=== PATIENT | female | born 1980 | race African-American/Black ===

== ENCOUNTER 2016-07-06 12:39 | Emergency (ER) | payer MEDICAID, OTHER ==
--- NOTE | 2016-07-06 14:12 | ER Document Report ---
HPI - HPI Patient complains to provider of: vaginal discharge Pain Level: Denies - REPRODUCTIVE Reproductive: DENIES: : - DERM Skin Color: Normal Past Medical History - Social History Smoking Status: Never Smoker Chew tobacco use (# tins/day): No Frequency of alcohol use: None Drug Abuse: None Family History: Reviewed & Not Pertinent, Other - Pt. is adopted and is unsure of family history Patient has suicidal ideation: No Patient has homicidal ideation: No - Past Medical History Cardiac Medical History: Reports: Hx Hypertension Pulmonary Medical History: Reports: Hx Pneumonia Neurological Medical History: Reports: Hx Migraine, Hx Seizures Renal/ Medical History: Denies: Hx Peritoneal Dialysis Psychiatric Medical History: Reports: Hx Bipolar Disorder, Hx Schizophrenia Past Surgical History: Reports: Hx Appendectomy, Hx Breast Surgery - bilateral lumpectomy, Hx Section - x3, Hx Tubal Ligation - Immunizations Immunizations up to date: Yes Hx Diphtheria, Pertussis, Tetanus Vaccination: Yes - 2009 Hx Pneumococcal Vaccination: 06/23/10 Vertical Provider Document - INFECTION CONTROL TRAVEL OUTSIDE OF THE [place] IN LAST 30 DAYS: No - RESPIRATORY O2 Sat by Pulse Oximetry: 97 Course - Vital Signs Vital signs: Temp Pulse Resp BP Pulse Ox 98.4 F 86 18 118/77 97 07/06/16 12:47 07/06/16 12:47 07/06/16 12:47 07/06/16 12:47 07/06/16 12:47 Discharge - Discharge Clinical Impression: Bacterial vaginosis Condition: Good Disposition: HOME, SELF-CARE Additional Instructions: Vaginosis, Bacterial Your exam shows you have bacterial vaginosis. This condition is due to an overgrowth of bacteria in the vagina. Symptoms may include vaginal itching or pain, a smelly discharge, and sometimes burning with urination. Normally this is not transmitted by sexual contact. Vaginosis can be treated with oral or topical antibiotics. Metronidazole ( Flagyl) pills are usually effective. Topical vaginal creams include Cleocin and Metro-Gel. You should avoid sexual contact until your symptoms are all better. Call the doctor if you develop pelvic pain, fever, or problems with urination, or if you don't improve as expected. Follow-up with Dr. Ellis as needed. Prescriptions: Metronidazole [Flagyl 500 mg Tablet] 500 mg PO BID 7 Days Forms: Return to Work
[2016-07-06 14:32] LABS: APPEARANCE,URINE CLEAR; BILIRUBIN,URINE NEGATIVE (NEGATIVE); GLUCOSE, URINE NEGATIVE (NEGATIVE); KETONES,URINE NEGATIVE (NEGATIVE); LEUKOCYTE ESTERASE,URINE SMALL (NEGATIVE); NITRITE,URINE NEGATIVE (NEGATIVE); PROTEIN,URINE NEGATIVE (NEGATIVE); URINE SPECIFIC GRAVITY 1.009; UROBILINOGEN,URINE NEGATIVE mg/dL (<2.0)
[2016-07-06 15:55] LABS: CHLAM PCR NOT DETECTED (NOT DETECT)
[2016-07-06] MEDS ORDERED: METRONIDAZOLE 500 MG TABLET PO ONE (16:04)
[2016-07-06 16:31] VITALS: BP 121/82
== END 2016-07-06 16:31 | disposition home or self-care (01) ==
LOC: ER 12:39
DX: N76.0 Acute vaginitis (principal); B96.89 Other specified bacterial agents as the cause of diseases classified elsewhere; Z98.51 Tubal ligation status
CPT/HCPCS: 99284; 87210; 81001; 87491; 87591; 76830; 93976; J3490

== ENCOUNTER 2016-07-31 20:02 | Emergency (ER) | payer MEDICAID ==
[2016-07-31 21:17] VITALS: BP 126/87
--- NOTE | 2016-07-31 21:22 | ER Document Report ---
ED Medical Screen (RME) - General Stated Complaint: POSSIBLE EYE INJURY Notes: pt c/o pain to right eye. pt was relaxing her hair, got the product in her eye. immediate burn. according to poison control, chemical is alkalizing and needs to continue to flush eye. c/o blurred vision. pt has flushed eye for atleast 40 minutes, but continues to burn. pt is noncontact wearer eye flushed at eye wash station in [place] for atleast 20 minutes. feeling slightly better presently. TRAVEL OUTSIDE OF THE [place] IN LAST 30 DAYS: No - Related Data Allergies/Adverse Reactions: No Known Allergies Allergy (Verified 07/31/16 21:17) Past Medical History - Past Medical History Cardiac Medical History: Reports: Hx Hypertension Pulmonary Medical History: Reports: Hx Pneumonia Neurological Medical History: Reports: Hx Migraine, Hx Seizures Renal/ Medical History: Denies: Hx Peritoneal Dialysis Psychiatric Medical History: Reports: Hx Bipolar Disorder, Hx Schizophrenia Past Surgical History: Reports: Hx Appendectomy, Hx Breast Surgery - bilateral lumpectomy, Hx Section - x3, Hx Tubal Ligation - Immunizations Immunizations up to date: Yes Hx Diphtheria, Pertussis, Tetanus Vaccination: Yes - 2009 Physical Exam - Vital signs Vitals: Temp Pulse Resp BP Pulse Ox 98.2 F 77 16 126/87 H 97 07/31/16 21:16 07/31/16 21:16 07/31/16 21:16 07/31/16 21:16 07/31/16 21:16 Course - Vital Signs Vital signs: Temp Pulse Resp BP Pulse Ox 98.2 F 77 16 126/87 H 97 07/31/16 21:16 07/31/16 21:16 07/31/16 21:16 07/31/16 21:16 07/31/16 21:16
== END 2016-07-31 23:45 | disposition left against medical advice (07) ==
LOC: ER 20:02
DX: Z77.098 Contact with and (suspected) exposure to other hazardous, chiefly nonmedicinal, chemicals (principal); H53.8 Other visual disturbances; I10 Essential (primary) hypertension; Z53.20 Procedure and treatment not carried out because of patient's decision for unspecified reasons
CPT/HCPCS: 99281

== ENCOUNTER 2016-08-25 10:57 | Emergency (ER) | payer MEDICAID ==
[2016-08-25 11:04] VITALS: BP 126/77
[2016-08-25] MEDS ORDERED: OXYCODONE-ACETAMINOPHEN 5-325 MG TABLET PO ONE (11:04)
--- NOTE | 2016-08-25 11:06 | ER Document Report ---
ED Medical Screen (RME) - General Time seen by provider: 11:02 TRAVEL OUTSIDE OF THE [place] IN LAST 30 DAYS: No <JIE RODRIGUEZ - Last Filed: 08/25/16 11:21> <DK SO - Last Filed: 08/25/16 11:36> - General Stated Complaint: FOOT INJURY Notes: Pt states she accidentally kicked a weight bench about 1 hour ago. Pain is in toes.I have greeted and performed a rapid initial assessment of this patient. A comprehensive ED assessment and evaluation of the patient, analysis of test results and completion of the medical decision making process will be conducted by additional ED providers. I have greeted and performed a rapid initial assessment of this patient. A comprehensive ED assessment and evaluation of the patient, analysis of test results and completion of the medical decision making process will be conducted by additional ED providers. (JIE RODRIGUEZ) - Related Data Allergies/Adverse Reactions: No Known Allergies Allergy (Verified 08/25/16 11:01) Past Medical History - Past Medical History Cardiac Medical History: Reports: Hx Hypertension Pulmonary Medical History: Reports: Hx Pneumonia Neurological Medical History: Reports: Hx Migraine, Hx Seizures Renal/ Medical History: Denies: Hx Peritoneal Dialysis Psychiatric Medical History: Reports: Hx Bipolar Disorder, Hx Schizophrenia Past Surgical History: Reports: Hx Appendectomy, Hx Breast Surgery - bilateral lumpectomy, Hx Section - x3, Hx Tubal Ligation - Immunizations Immunizations up to date: Yes Hx Diphtheria, Pertussis, Tetanus Vaccination: Yes - 2009 <JIE RODRIGUEZ - Last Filed: 08/25/16 11:21> Physical Exam <JIE RODRIGUEZ - Last Filed: 08/25/16 11:21> <DK SO - Last Filed: 08/25/16 11:36> - Vital signs Vitals: Temp Pulse Resp BP Pulse Ox 98.7 F 103 H 15 126/77 H 99 08/25/16 11:03 08/25/16 11:03 08/25/16 11:03 08/25/16 11:03 08/25/16 11:03 - Extremities Notes: Tenderness and swelling to right 3, 4, and 5 toes. N/V and sensation intact. ( JIE RODRIGUEZ) Course - Diagnostic Test Radiology reviewed: Pending, Image reviewed <DK SO - Last Filed: 08/25/16 11:36> - Vital Signs Vital signs: Temp Pulse Resp BP Pulse Ox 98.7 F 103 H 15 126/77 H 99 08/25/16 11:03 08/25/16 11:03 08/25/16 11:03 08/25/16 11:03 08/25/16 11:03 Doctor's Discharge <JIE RODRIGUEZ - Last Filed: 08/25/16 11:21> <DK SO - Last Filed: 08/25/16 11:36> - Discharge Clinical Impression: Toe fracture, right Qualifiers: Encounter type: initial encounter Toe: unspecified toe Fracture type: closed Fracture alignment: nondisplaced Qualified Code(s): S92.911A - Unspecified fracture of right toe(s), initial encounter for closed fracture Condition: Stable Disposition: HOME, SELF-CARE Instructions: Fractured Toe ([facility]), Rodrigo Taping (toes) ([facility]), Post-Op Shoe ([facility] ), Use of Crutches ([facility]), Oral Narcotic Medication ([facility]) Additional Instructions: Return immediately for any new or worsening symptoms Followup with your primary care provider, call tomorrow to make a followup appointment Weightbearing as tolerated Follow-up with orthopedic DrYessi for further evaluation Prescriptions: Oxycodone HCl/Acetaminophen [Percocet 5-325 mg Tablet] 1 tab PO ASDIR PRN #15 tablet PRN Reason: Referrals: [facility] ([facility]) [Provider Group] - Follow up in 3-5 days
--- NOTE | 2016-08-25 18:36 | ER Document Report ---
HPI - HPI Patient complains to provider of: right foot injury Onset: This morning Onset/Duration: Sudden Quality of pain: Sharp Pain Level: 1 Context: Patient states she was walking around barefoot and kicked a weight bench with her right foot. Patient complains of pain to right foot involving her third, fourth, and fifth toes. Associated Symptoms: Other - Right foot pain Exacerbated by: Standing, Movement, Walking Relieved by: Denies Similar symptoms previously: No Recently seen / treated by doctor: No - ROS ROS below otherwise negative: Yes Systems Reviewed and Negative: Yes All other systems reviewed and negative - CONSTITUTIONAL Constitutional: DENIES: Fever, Chills - NEURO Neurology: DENIES: Weakness - CARDIOVASCULAR Cardiovascular: DENIES: Chest pain - REPRODUCTIVE Reproductive: DENIES: : - MUSCULOSKELETAL Musculoskeletal: REPORTS: Extremity pain - Right foot, Swelling - DERM Skin Color: Normal Skin Problems: None Past Medical History - General Information source: Patient - Social History Smoking Status: Unknown if Ever Smoked Chew tobacco use (# tins/day): No Frequency of alcohol use: None Drug Abuse: None Occupation: none Lives with: Family Family History: Reviewed & Not Pertinent, Other - Pt. is adopted and is unsure of family history Patient has suicidal ideation: No Patient has homicidal ideation: No - Past Medical History Cardiac Medical History: Reports: Hx Hypertension Pulmonary Medical History: Reports: Hx Pneumonia Neurological Medical History: Reports: Hx Migraine, Hx Seizures Renal/ Medical History: Denies: Hx Peritoneal Dialysis Psychiatric Medical History: Reports: Hx Bipolar Disorder Past Surgical History: Reports: Hx Appendectomy, Hx Breast Surgery - bilateral lumpectomy, Hx Section - x3, Hx Tubal Ligation - Immunizations Immunizations up to date: Yes Hx Diphtheria, Pertussis, Tetanus Vaccination: Yes - 2009 Hx Pneumococcal Vaccination: 06/23/10 Vertical Provider Document - CONSTITUTIONAL Agree With Documented VS: Yes Exam Limitations: No Limitations General Appearance: WD/WN, No Apparent Distress - INFECTION CONTROL TRAVEL OUTSIDE OF THE [place] IN LAST 30 DAYS: No - HEENT HEENT: Atraumatic, Normocephalic - NECK Neck: Normal Inspection - RESPIRATORY Respiratory: Breath Sounds Normal, No Respiratory Distress O2 Sat by Pulse Oximetry: 99 - CARDIOVASCULAR Cardiovascular: Regular Rate, Regular Rhythm Pulses: Normal: Dorsalis pedis - BACK Back: Normal Inspection - MUSCULOSKELETAL/EXTREMETIES Musculoskeletal/Extremeties: Tender - Tenderness to right third fourth and fifth toes, patient most tender to right fourth toe with 2+ edema, Edema - NEURO Level of Consciousness: Awake, Alert, Appropriate Motor/Sensory: No Motor Deficit - DERM Integumentary: Warm, Dry Course - Vital Signs Vital signs: Temp Pulse Resp BP Pulse Ox 98.7 F 103 H 15 126/77 H 99 08/25/16 11:03 08/25/16 11:03 08/25/16 11:03 08/25/16 11:03 08/25/16 11:03 - Diagnostic Test Radiology reviewed: Image reviewed, Reports reviewed Procedures - Immobilization Right 4th digit Pre-Proc Neuro Vasc Exam: Normal Immobilizer type: Other - Rodrigo tape to right third and fourth toe, postop shoe Performed by: RN Post-Proc Neuro Vasc Exam: Normal Alignment checked and good: Yes Discharge - Discharge Clinical Impression: Toe fracture, right Qualifiers: Encounter type: initial encounter Toe: unspecified toe Fracture type: closed Fracture alignment: nondisplaced Qualified Code(s): S92.911A - Unspecified fracture of right toe(s), initial encounter for closed fracture Condition: Stable Disposition: HOME, SELF-CARE Instructions: Rodrigo Taping (toes) ([facility]), Use of Crutches ([facility]), Oral Narcotic Medication ([facility]), Post-Op Shoe ([facility]), Fractured Toe ([facility]) Additional Instructions: Return immediately for any new or worsening symptoms Followup with your primary care provider, call tomorrow to make a followup appointment Weightbearing as tolerated Follow-up with orthopedic DrYessi for further evaluation Prescriptions: Oxycodone HCl/Acetaminophen [Percocet 5-325 mg Tablet] 1 tab PO ASDIR PRN #15 tablet PRN Reason: Referrals: [facility] ([facility]) [Provider Group] - Follow up in 3-5 days
== END 2016-08-25 12:08 | disposition home or self-care (01) ==
LOC: ER 10:57
DX: S92.511A Displaced fracture of proximal phalanx of right lesser toe(s), initial encounter for closed fracture (principal); W21.89XA Striking against or struck by other sports equipment, initial encounter; Y92.009 Unspecified place in unspecified non-institutional (private) residence as the place of occurrence of the external cause; I10 Essential (primary) hypertension
CPT/HCPCS: 99283

== ENCOUNTER 2016-11-12 11:58 | Emergency (ER) | payer MEDICAID ==
--- NOTE | 2016-11-12 13:30 | RADIOLOGY REPORT (SQ) ---
EXAM DESCRIPTION: FOOT RIGHT COMPLETE COMPLETED DATE/TIME: 11/12/2016 1:00 pm REASON FOR STUDY: injury COMPARISON: August 2016 NUMBER OF VIEWS: Three views. TECHNIQUE: AP, lateral and oblique radiographic images acquired of the right foot. LIMITATIONS: None. FINDINGS: MINERALIZATION: Normal. BONES: A healing oblique fracture of the proximal phalanx of the 4th digit is identified. Bony scler osis is identified along the margin of the fracture line without evidence for bony union. No acute f ractures are identified. JOINTS: No effusions. SOFT TISSUES: No soft tissue swelling. No foreign body. OTHER: No other significant finding. IMPRESSION: Healing oblique fracture of the proximal phalanx of the 4th digit as noted above. No ac sari fractures are identified. Other findings as noted above TECHNICAL DOCUMENTATION: JOB ID: [id number] [employer]- All Rights Reserved
--- NOTE | 2016-11-12 13:51 | ER Document Report ---
HPI - HPI Patient complains to provider of: Right toe injury Onset: Just prior to arrival Onset/Duration: Sudden Quality of pain: Throbbing Severity: Moderate Pain Level: 4 Context: Patient hit right toe on concrete block this morning just prior to arrival. Fractured right fourth toe several months ago. Associated Symptoms: None Exacerbated by: Walking Relieved by: Denies Similar symptoms previously: Yes Recently seen / treated by doctor: No - ROS ROS below otherwise negative: Yes Systems Reviewed and Negative: Yes All other systems reviewed and negative - CONSTITUTIONAL Constitutional: DENIES: Fever - EENT EENT: DENIES: Congestion - NEURO Neurology: DENIES: Headache - CARDIOVASCULAR Cardiovascular: DENIES: Chest pain - RESPIRATORY Respiratory: DENIES: Trouble Breathing - GASTROINTESTINAL Gastrointestinal: DENIES: Abdominal Pain - URINARY Urinary: DENIES: Dysuria - REPRODUCTIVE LMP: 11/04/16 Reproductive: DENIES: : - MUSCULOSKELETAL Musculoskeletal: REPORTS: Extremity pain - right Fourth toe - DERM Skin Color: Normal, [place] Past Medical History - General Information source: Patient - Social History Smoking Status: Never Smoker Chew tobacco use (# tins/day): No Frequency of alcohol use: None Drug Abuse: None Lives with: Family Family History: Reviewed & Not Pertinent, Other - Pt. is adopted and is unsure of family history Patient has suicidal ideation: No Patient has homicidal ideation: No - Past Medical History Cardiac Medical History: Reports: Hx Hypertension Pulmonary Medical History: Reports: Hx Pneumonia Neurological Medical History: Reports: Hx Migraine, Hx Seizures Renal/ Medical History: Denies: Hx Peritoneal Dialysis Psychiatric Medical History: Reports: Hx Bipolar Disorder, Hx Schizophrenia Past Surgical History: Reports: Hx Appendectomy, Hx Breast Surgery - bilateral lumpectomy, Hx Section - x3, Hx Tubal Ligation - Immunizations Immunizations up to date: Yes Hx Diphtheria, Pertussis, Tetanus Vaccination: Yes - 2009 Hx Pneumococcal Vaccination: 06/23/10 Vertical Provider Document - CONSTITUTIONAL Agree With Documented VS: Yes Exam Limitations: No Limitations General Appearance: WD/WN, No Apparent Distress - INFECTION CONTROL TRAVEL OUTSIDE OF THE [place] IN LAST 30 DAYS: No - HEENT HEENT: Atraumatic, Normocephalic - RESPIRATORY Respiratory: Breath Sounds Normal, No Respiratory Distress O2 Sat by Pulse Oximetry: 97 - CARDIOVASCULAR Cardiovascular: Regular Rate, Regular Rhythm - GI/ABDOMEN Gastrointestinal: Abdomen Soft - MUSCULOSKELETAL/EXTREMETIES Musculoskeletal/Extremeties: Tender, Edema - Right fourth and fifth toes - NEURO Level of Consciousness: Awake, Alert - DERM Integumentary: Warm, Dry Course - Re-evaluation Re-evalutation: 11/12/16 13:50 X-rays showed no acute fracture and were discussed with patient. - Vital Signs Vital signs: Temp Pulse Resp BP Pulse Ox 98.2 F 101 H 18 139/79 H 97 11/12/16 12:08 11/12/16 12:08 11/12/16 12:08 11/12/16 12:08 11/12/16 12:08 Discharge - Discharge Clinical Impression: Toe contusion Qualifiers: Encounter type: initial encounter Toe: lesser toe Damage to nail status: without damage Laterality: right Qualified Code(s): S90.121A - Contusion of right lesser toe(s) without damage to nail, initial encounter Condition: Good Disposition: HOME, SELF-CARE Additional Instructions: Tylenol or Motrin as needed for pain Ice and elevate foot Follow up with your doctor if not better in 1 week Return as needed
[2016-11-12 14:02] VITALS: BP 117/80
== END 2016-11-12 14:00 | disposition home or self-care (01) ==
LOC: ER 11:58
DX: S90.121A Contusion of right lesser toe(s) without damage to nail, initial encounter (principal); W22.09XA Striking against other stationary object, initial encounter; I10 Essential (primary) hypertension
CPT/HCPCS: 99283

== ENCOUNTER 2016-12-16 19:41 | Emergency (ER) | payer MEDICAID ==
[2016-12-16 20:03] VITALS: BP 132/86
--- NOTE | 2016-12-16 23:29 | ER Document Report ---
HPI - HPI Patient complains to provider of: sciatica Onset: Other - chronic Onset/Duration: Persistent Quality of pain: Achy Severity: Severe Pain Level: 4 Context: Patient presents to the emergency department with complaints of sciatica nerve pain. Reports she has had this for a long time. Reports pain on her left side that radiates down her left buttocks into her leg. Denies fever vomiting diarrhea. Denies urinary or bowel incontinence or retention. Denies numbness or tingling. Associated Symptoms: None Exacerbated by: Denies Relieved by: Denies Similar symptoms previously: No Recently seen / treated by doctor: No - REPRODUCTIVE LMP: 11/09/2016 Reproductive: DENIES: : - DERM Skin Color: Normal Past Medical History - General Information source: Patient Last Menstrual Period: last month - Social History Smoking Status: Unknown if Ever Smoked Cigarette use (# per day): No Frequency of alcohol use: None Drug Abuse: None Lives with: Family Family History: Reviewed & Not Pertinent, Other - Pt. is adopted and is unsure of family history - Past Medical History Cardiac Medical History: Reports: Hx Hypertension Pulmonary Medical History: Reports: Hx Pneumonia Neurological Medical History: Reports: Hx Migraine, Hx Seizures Renal/ Medical History: Denies: Hx Peritoneal Dialysis Psychiatric Medical History: Reports: Hx Bipolar Disorder, Hx Schizophrenia Past Surgical History: Reports: Hx Appendectomy, Hx Breast Surgery - bilateral lumpectomy, Hx Section - x3, Hx Tubal Ligation - Immunizations Immunizations up to date: Yes Hx Diphtheria, Pertussis, Tetanus Vaccination: Yes - 2009 Hx Pneumococcal Vaccination: 06/23/10 Vertical Provider Document - CONSTITUTIONAL Agree With Documented VS: Yes Exam Limitations: No Limitations General Appearance: WD/WN, No Apparent Distress - INFECTION CONTROL TRAVEL OUTSIDE OF THE [place] IN LAST 30 DAYS: No - HEENT HEENT: Atraumatic, Normocephalic - NECK Neck: Normal Inspection, Supple. negative: Lymphadenopathy-Left, Lymphadenopathy-Right - RESPIRATORY Respiratory: Breath Sounds Normal, No Respiratory Distress O2 Sat by Pulse Oximetry: 98 - CARDIOVASCULAR Cardiovascular: Regular Rate, Regular Rhythm - GI/ABDOMEN Gastrointestinal: Abdomen Soft, Abdomen Non-Tender - BACK Back: Normal Inspection - Complains of pain to the left low back that radiates down her left buttocks. Good distal movement and sensation no weakness - MUSCULOSKELETAL/EXTREMETIES Musculoskeletal/Extremeties: MAEW, FROM - NEURO Level of Consciousness: Awake, Alert, Appropriate Motor/Sensory: No Motor Deficit - DERM Integumentary: Warm, Dry Adult Front & Back Diagram: 1 - reports pain 2 - radiates down buttocks, leg Course - Re-evaluation Re-evalutation: 12/16/16 23:41 The patient presents with low back pain without signs of spinal cord compression , cauda equine syndrome, infection, aneurysm, or other serious etiology. The patient is neurologically intact. The patient has good distal movement and sensation, denies urinary or bowel incontinence/retention. Given the extremely low risk of these diagnosis, further testing and evaluation for these possibilities does not appear to be indicated at this time. The patient has been instructed to return if the symptoms worsen or change in anyway. - Vital Signs Vital signs: Temp Pulse Resp BP Pulse Ox 98.5 F 81 20 132/86 H 98 12/16/16 20:03 12/16/16 20:03 12/16/16 20:03 12/16/16 20:03 12/16/16 20:03 Discharge - Discharge Clinical Impression: Chronic sciatica of left side, Elevated blood pressure reading Condition: Stable Disposition: HOME, SELF-CARE Instructions: Ice Packs ([facility]), Muscle Relaxers ([facility]), Sciatica ([facility]), Toradol Injection ([facility]) Additional Instructions: *You have been evaluated for sciatica *Take medication as prescribed *Rest/Ice packs *Follow up with dr gibbs this week for recheck *Return to ED for worsening condition, changes, needs Monitor your blood pressure. Your blood pressure was elevated today. This may be because you were anxious, in pain or because you need medication. It is important to follow up with your primary care provider for full evaluation. Prescriptions: Cyclobenzaprine HCl [Flexeril 10 Mg Tablet] 10 mg PO TID #30 tablet Forms: Elevated Blood Pressure
[2016-12-16] MEDS ORDERED: METHOCARBAMOL 500 MG TABLET PO ONE (23:38)
[2016-12-16] MEDS ORDERED: KETOROLAC TROMETHAMINE 60 MG/2 ML SDV IM ONE (23:38)
== END 2016-12-17 00:20 | disposition home or self-care (01) ==
LOC: ER 19:41
DX: G89.29 Other chronic pain (principal); M54.41 Lumbago with sciatica, right side; I10 Essential (primary) hypertension
CPT/HCPCS: 99283; 96372; J1885; J3490

== ENCOUNTER 2017-01-14 19:43 | Emergency (ER) | payer MEDICAID ==
[2017-01-14] MEDS ORDERED: NORMAL SALINE 1000 ML 1,000 ML IV PRN (21:31)
[2017-01-14] MEDS ORDERED: DIPHENHYDRAMINE HCL 50 MG/ML VIAL IV ONE (21:31)
[2017-01-14] MEDS ORDERED: METOCLOPRAMIDE HCL INJ/PF 10 MG/2 ML SDV IV ONE (21:31)
[2017-01-14] MEDS ORDERED: KETOROLAC TROMETHAMINE INJ/PF 30 MG/1 ML SDV IV ONE (21:31)
[2017-01-14] MEDS ORDERED: HYDROMORPHONE HCL INJ/PF 2 MG/ML AMPULE IV ONE ×2 (21:32→23:12)
--- NOTE | 2017-01-14 21:38 | ER Document Report ---
ED General - General Chief Complaint: Headache Stated Complaint: HEADACHE Time Seen by Provider: 01/14/17 21:31 Mode of Arrival: Ambulatory Information source: Patient Notes: This is a 36-year-old female with a history of bipolar affective disorder, migraines who presents to the emergency room with a typical migraine. Patient states she is usual state of health until this morning when she started to get a typical migraine in the front associated with some photophobia and nausea. She states she has been able to drink water. She denies any neck stiffness. She denies any fever. This is not the worst headache of her life. TRAVEL OUTSIDE OF THE [place] IN LAST 30 DAYS: No - HPI Onset: This morning Onset/Duration: Gradual Quality of pain: Dull Severity: Moderate Pain Level: 3 Associated symptoms: denies: Chest pain, Chills, Fever, Shortness of breath Exacerbated by: Denies Relieved by: Denies Similar symptoms previously: Yes Recently seen / treated by doctor: No - Related Data Allergies/Adverse Reactions: No Known Allergies Allergy (Verified 12/16/16 20:01) Past Medical History - General Information source: Patient - Social History Smoking Status: Never Smoker Cigarette use (# per day): No Chew tobacco use (# tins/day): No Smoking Education Provided: No Frequency of alcohol use: None Drug Abuse: None Lives with: Family Family History: Reviewed & Not Pertinent, Other - Pt. is adopted and is unsure of family history - Past Medical History Cardiac Medical History: Reports: Hx Hypertension Pulmonary Medical History: Reports: Hx Pneumonia Neurological Medical History: Reports: Hx Migraine, Hx Seizures Renal/ Medical History: Denies: Hx Peritoneal Dialysis Psychiatric Medical History: Reports: Hx Bipolar Disorder, Hx Schizophrenia Past Surgical History: Reports: Hx Appendectomy, Hx Breast Surgery - bilateral lumpectomy, Hx Section - x3, Hx Tubal Ligation - Immunizations Immunizations up to date: Yes Hx Diphtheria, Pertussis, Tetanus Vaccination: Yes - 2009 Hx Pneumococcal Vaccination: 06/23/10 Review of Systems - Review of Systems Notes: Review of systems: Constitutional: Denies fever, chills. EENT: Denies ear pain, sinus tenderness, throat pain, throat swelling. Cardiovascular: Denies chest pain, palpitations, dyspnea or edema. Respiratory: Denies wheezing, cough, hemoptysis. Abdomen: Denies abdominal pain, nausea, vomiting, diarrhea. Denies BRBPR or melena. Genitourinary: Denies dysuria, pyuria, hematuria, flank pain. Musculoskeletal: denies joint pain or swelling, denies back pain. Neurologic: Positive for headache and photophobia. Negative for neck stiffness. Patient denies fever. Skin: Denies rash, lesions. Physical Exam - Vital signs Vitals: Temp Pulse Resp BP Pulse Ox 98.6 F 77 14 135/87 H 98 01/14/17 22:15 01/14/17 22:15 01/14/17 22:15 01/14/17 22:15 01/14/17 22:15 Notes: Physical exam: GENERAL: 36-year-old female, alert and oriented 3, does appear in mild distress. HEAD: Atraumatic, normocephalic. EYES: Pupils equal round and reactive to light, extraocular movements intact, sclera anicteric, conjunctiva are normal. ENT: TMs normal, nares patent, oropharynx clear without exudates. Moist mucous membranes. NECK: Normal range of motion, supple without lymphadenopathy LUNGS: Breath sounds clear to auscultation bilaterally and equal. No wheezes rales or rhonchi. HEART: Regular rate and rhythm without murmurs, rubs or gallops. ABDOMEN: Soft, normoactive bowel sounds. No tenderness to palpation. No guarding, no rebound. No masses appreciated. EXTREMITIES: Normal range of motion, no pitting or edema. No clubbing or cyanosis. NEUROLOGICAL: Cranial nerves II through XII grossly intact. Normal speech, normal gait. PSYCH: Normal mood, normal affect. SKIN: Warm, Dry, normal turgor, no rashes or lesions noted. Course - Re-evaluation Re-evalutation: 01/15/17 01:45 The patient was treated with IV fluids, IV Reglan, IV Benadryl, IV Dilaudid and then IM Dilaudid. I have had a long discussion with the patient. Her head CT looks good. I did bring up the issue of the spinal tap with her and she is adamant against it. She does reiterate that this is not the worst headache of her life and she has not had any fever and that this is typical of 1 of her bad migraines. I explained to her that if she starts getting fever or neck stiffness or worsening pain, she should return and get a spinal tap. In the meantime, I will send her home with some pain medicine and nausea medicine. I have advised her to follow-up with her primary care doctor. She does state that she is feeling better at this point and her neck is still supple. - Vital Signs Vital signs: Temp Pulse Resp BP Pulse Ox 98.6 F 77 14 135/87 H 98 01/14/17 22:15 01/14/17 22:15 01/14/17 22:15 01/14/17 22:15 01/14/17 22:15 - Laboratory Result Diagrams: 01/14/17 22:29 01/14/17 22:29 Laboratory results interpreted by me: 01/14/17 01/14/17 22:29 22:29 RDW 14.3 H Seg Neutrophils % 41.7 L Carbon Dioxide 21 L - Diagnostic Test Radiology reviewed: Image reviewed, Reports reviewed - CT shows no bleed Discharge - Discharge Clinical Impression: Migraine headache Condition: Stable Disposition: HOME, SELF-CARE Instructions: Antinausea Medication ([facility]), Headache ([facility]), Oral Narcotic Medication ([facility]), Use of Diphenhydramine Additional Instructions: Recommendations: Rest, drink plenty of fluids, take pain medicine and nausea medicine as needed. Follow-up with your primary care doctor: Call tomorrow for an appointment. Return to the emergency room for fever (temperature greater than 100.5), worsening pain, or any concerns or getting worse. Prescriptions: Metoclopramide HCl [Reglan 10 mg Tablet] 1 tab PO ASDIR PRN #14 tablet PRN Reason: Oxycodone HCl/Acetaminophen [Percocet 5-325 mg Tablet] 1 - 2 tab PO ASDIR PRN # 25 tablet PRN Reason: Referrals: LIONEL GARCIA MD [Primary Care Provider] - Follow up in 3-5 days
[2017-01-14 22:49] LABS: ABSOLUTE EOSINOPHILS # (AUTO) 0.4 10^3/uL (0.0-0.6); ABSOLUTE LYMPHOCYTES (AUTO) 3.4 10^3/uL (0.5-4.7); ABSOLUTE MONOCYTES (AUTO) 0.7 10^3/uL (0.1-1.4); ABSOLUTE NEUT (AUTO) 3.2 10^3/uL (1.7-8.2); BASOPHILS % (AUTO) 0.5 % (0-2); EOSINOPHILS % (AUTO) 4.8 % (0-6); HEMATOCRIT 37.3 % (36.0-47.0); HEMOGLOBIN 12.7 g/dL (12.0-15.5); HGB HCT DIFFERENCE 0.8; LYMPHOCYTES % (AUTO) 43.8 % (13-45); MEAN CORPUSCULAR HEMOGLOBIN 31.8 pg (27.0-33.4); MEAN CORPUSCULAR HGB CONC 33.9 g/dL (32.0-36.0); MEAN CORPUSCULAR VOLUME 94 fl (80-97); MONOCYTES % (AUTO) 9.2 % (3-13); RED BLOOD COUNT 3.98 10^6/uL (3.72-5.28); RED CELL DISTRIBUTION WIDTH 14.3 % (11.5-14.0); SEGMENTED NEUTROPHILS % (AUTO) 41.7 % (42-78); WHITE BLOOD COUNT 7.7 10^3/uL (4.0-10.5)
[2017-01-14 23:12] LABS: ALANINE AMINOTRANSFERASE 24 U/L (9-52); ALBUMIN 4.8 g/dL (3.5-5.0); ALKALINE PHOSPHATASE 83 U/L (38-126); ANION GAP 14 (5-19); ASPARTATE AMINO TRANSFERASE 16 U/L (14-36); BILIRUBIN,DIRECT 0.3 mg/dL (0.0-0.4); BILIRUBIN,TOTAL 0.4 mg/dL (0.2-1.3); BLOOD UREA NITROGEN 8 mg/dL (7-20); CALCIUM 9.8 mg/dL (8.4-10.2); CARBON DIOXIDE 21 mmol/L (22-30); CHLORIDE 107 mmol/L (98-107); CREATININE RESULT 0.86 mg/dL (0.52-1.25); GLUCOSE 89 mg/dL (75-110); POTASSIUM 3.9 mmol/L (3.6-5.0); SODIUM 141.8 mmol/L (137-145); TOTAL PROTEIN 8.2 g/dL (6.3-8.2)
[2017-01-15] MEDS ORDERED: HYDROMORPHONE HCL INJ/PF 2 MG/ML AMPULE IV ONE (00:47)
--- NOTE | 2017-01-15 00:57 | RADIOLOGY REPORT (SQ) ---
EXAM DESCRIPTION: CT HEAD WITHOUT COMPLETED DATE/TIME: 01/15/2017 12:43 am REASON FOR STUDY: torres COMPARISON: 01/13/2016. . TECHNIQUE: Axial images acquired through the brain without intravenous contrast. Images reviewed wi th bone, brain and subdural windows. Images stored on PACS. All CT scanners at this facility use dose modulation, iterative reconstruction, and/or weight based d osing when appropriate to reduce radiation dose to as low as reasonably achievable (ALARA). [facility]: Dose Right [facility]: CareDose [facility]: Dose Right [facility]: Teradose 4D [facility]: [email or web address] RADIATION DOSE: Up-to-date CT equipment and radiation dose reduction techniques were employed. CTDIv ol: 55.2 - 55.3 mGy. DLP: 2301 mGy-cm. mGy. LIMITATIONS: Mild motion artifact. FINDINGS: VENTRICLES: Normal size and contour. CEREBRUM: No masses. No hemorrhage. No midline shift. Normal hedrick/white matter differentiation. N o evidence for acute infarction. CEREBELLUM: No masses. No hemorrhage. No alteration of density. No evidence for acute infarction. EXTRAAXIAL SPACES: No fluid collections. No masses. ORBITS AND GLOBE: No intra- or extraconal masses. Normal contour of globe without masses. CALVARIUM: No fracture. PARANASAL SINUSES: No fluid or mucosal thickening. SOFT TISSUES: No mass or hematoma. OTHER: No other significant finding. IMPRESSION: NORMAL BRAIN CT WITHOUT CONTRAST. TECHNICAL DOCUMENTATION: JOB ID: [id number] Quality ID # [id number]: Final reports with documentation of one or more dose reduction techniques (e.g., Au tomated exposure control, adjustment of the mA and/or kV according to patient size, use of iterative reconstruction technique) 2010 [employer]- All Rights Reserved
[2017-01-15] MEDS ORDERED: HYDROMORPHONE HCL INJ/PF 2 MG/ML AMPULE IM ONE (01:18)
[2017-01-15] MEDS ORDERED: ONDANSETRON 4 MG TAB.RAPDIS PO ONE (02:02)
[2017-01-15] MEDS ORDERED: ONDANSETRON ODT 4 MG TAB (6 TAB/DSPK) PO PRN (02:03)
[2017-01-15 02:47] VITALS: BP 122/86
== END 2017-01-15 02:22 | disposition home or self-care (01) ==
LOC: ER 19:43
DX: G43.909 Migraine, unspecified, not intractable, without status migrainosus (principal); R51 Headache; F31.9 Bipolar disorder, unspecified; H53.149 Visual discomfort, unspecified; R11.0 Nausea
CPT/HCPCS: 96376; 99284; 96372; 96361; 96374; 96375; 36415; 84702; 85025; 80053; 70450; J1200; S0119; J1885; J2765; J1170 ×2; J7030

== ENCOUNTER 2017-03-12 16:48 | Emergency (ER) | payer MEDICAID ==
[2017-03-12 17:24] LABS: APPEARANCE,URINE CLEAR; BILIRUBIN,URINE NEGATIVE (NEGATIVE); GLUCOSE, URINE NEGATIVE (NEGATIVE); KETONES,URINE NEGATIVE (NEGATIVE); LEUKOCYTE ESTERASE,URINE NEGATIVE (NEGATIVE); NITRITE,URINE NEGATIVE (NEGATIVE); PROTEIN,URINE NEGATIVE (NEGATIVE); URINE SPECIFIC GRAVITY 1.005; UROBILINOGEN,URINE NEGATIVE mg/dL (<2.0)
[2017-03-12] MEDS ORDERED: OXYCODONE-ACETAMINOPHEN 5-325 MG TABLET PO ONE (18:22)
--- NOTE | 2017-03-12 18:22 | ER Document Report ---
ED Medical Screen (RME) - General Chief Complaint: Abdominal Pain Stated Complaint: STOMACH PAIN Time Seen by Provider: 03/12/17 18:20 Notes: Patient with several days of right lower quadrant abdominal pain. She states she has had an appendectomy in 3 C-sections in the past. She has no nausea vomiting or diarrhea. She is eating normally. No vaginal discharge or bleeding. She states it feels similar to an ovarian cyst she has had in the past. TRAVEL OUTSIDE OF THE [place] IN LAST 30 DAYS: No - Related Data Allergies/Adverse Reactions: No Known Allergies Allergy (Verified 03/12/17 16:52) Past Medical History - Social History Frequency of alcohol use: None Drug Abuse: None - Past Medical History Cardiac Medical History: Reports: Hx Hypertension - not current Pulmonary Medical History: Reports: Hx Pneumonia Neurological Medical History: Reports: Hx Migraine, Hx Seizures Renal/ Medical History: Denies: Hx Peritoneal Dialysis Psychiatric Medical History: Reports: Hx Bipolar Disorder, Hx Schizophrenia Past Surgical History: Reports: Hx Appendectomy, Hx Breast Surgery - bilateral lumpectomy, Hx Section - x3, Hx Tubal Ligation - Immunizations Immunizations up to date: Yes Hx Diphtheria, Pertussis, Tetanus Vaccination: Yes - 2009 Physical Exam - Vital signs Vitals: Temp Pulse Resp BP Pulse Ox 98.7 F 107 H 14 130/78 H 98 03/12/17 16:51 03/12/17 16:51 03/12/17 16:51 03/12/17 16:51 03/12/17 16:51 Course - Vital Signs Vital signs: Temp Pulse Resp BP Pulse Ox 98.7 F 107 H 14 130/78 H 98 03/12/17 16:51 03/12/17 16:51 03/12/17 16:51 03/12/17 16:51 03/12/17 16:51 - Laboratory Laboratory results interpreted by me: 03/12/17 16:52 Urine Blood SMALL H
[2017-03-12 19:12] LABS: ABSOLUTE EOSINOPHILS # (AUTO) 0.3 10^3/uL (0.0-0.6); ABSOLUTE LYMPHOCYTES (AUTO) 3.1 10^3/uL (0.5-4.7); ABSOLUTE MONOCYTES (AUTO) 0.7 10^3/uL (0.1-1.4); ABSOLUTE NEUT (AUTO) 4.1 10^3/uL (1.7-8.2); BASOPHILS % (AUTO) 0.6 % (0-2); EOSINOPHILS % (AUTO) 3.6 % (0-6); HEMATOCRIT 34.8 % (36.0-47.0); HEMOGLOBIN 12.1 g/dL (12.0-15.5); HGB HCT DIFFERENCE 1.5; LYMPHOCYTES % (AUTO) 37.6 % (13-45); MEAN CORPUSCULAR HEMOGLOBIN 31.6 pg (27.0-33.4); MEAN CORPUSCULAR HGB CONC 34.7 g/dL (32.0-36.0); MEAN CORPUSCULAR VOLUME 91 fl (80-97); MONOCYTES % (AUTO) 8.2 % (3-13); RED BLOOD COUNT 3.82 10^6/uL (3.72-5.28); RED CELL DISTRIBUTION WIDTH 14.3 % (11.5-14.0); WHITE BLOOD COUNT 8.2 10^3/uL (4.0-10.5)
[2017-03-12 19:25] LABS: ALANINE AMINOTRANSFERASE 16 U/L (9-52); ALBUMIN 4.5 g/dL (3.5-5.0); ALKALINE PHOSPHATASE 91 U/L (38-126); ANION GAP 13 (5-19); ASPARTATE AMINO TRANSFERASE 13 U/L (14-36); BILIRUBIN,DIRECT 0.3 mg/dL (0.0-0.4); BILIRUBIN,TOTAL 0.3 mg/dL (0.2-1.3); BLOOD UREA NITROGEN 6 mg/dL (7-20); CALCIUM 9.9 mg/dL (8.4-10.2); CARBON DIOXIDE 25 mmol/L (22-30); CHLORIDE 103 mmol/L (98-107); GLUCOSE 100 mg/dL (75-110); POTASSIUM 3.9 mmol/L (3.6-5.0); SODIUM 141.4 mmol/L (137-145); TOTAL PROTEIN 7.4 g/dL (6.3-8.2)
--- NOTE | 2017-03-12 19:59 | RADIOLOGY REPORT (SQ) ---
EXAM DESCRIPTION: U/S NON-OB PELVIS TV W/O DOP COMPLETED DATE/TIME: 03/12/2017 7:48 pm REASON FOR STUDY: pain COMPARISON: 07/06/2016 TECHNIQUE: Dynamic and static grayscale images acquired of the pelvis via transvaginal approach and recorded on PACS. Additional selected color Doppler and spectral images recorded. LIMITATIONS: None. FINDINGS: UTERUS: Contour normal. No mass. ENDOMETRIAL STRIPE: No focal or generalized thickening. No masses. CERVIX: Free fluid. No nabothian cysts. RIGHT OVARY: 1.8 cm anechoic mass with through transmission adjacent to the right ovary. RIGHT OVARY DOPPLER: Normal arterial vascular flow without evidence for torsion. LEFT OVARY: Not identified. FREE FLUID: None noted. OTHER: No other significant finding. MEASUREMENTS: UTERUS: 9.5 x 5.5 x 4.6 cm ENDOMETRIAL STRIPE: 13 mm RIGHT OVARY: 3.0 x 3.0 x 2.7 cm LEFT OVARY: Not visualized. IMPRESSION: Right paraovarian cyst measuring 1.8 cm. Free fluid in the cervix. TECHNICAL DOCUMENTATION: JOB ID: [id number] 0338[employer]- All Rights Reserved
[2017-03-12 20:46] VITALS: BP 138/68
[2017-03-12] MEDS ORDERED: LIDOCAINE 5% (700 MG) TRANSDERMAL ADH..PATCH TP ONE (21:00)
--- NOTE | 2017-03-12 21:03 | ER Document Report ---
ED General - General Chief Complaint: Abdominal Pain Stated Complaint: STOMACH PAIN Time Seen by Provider: 03/12/17 18:20 Notes: Patient is a 37-year-old female who presents with 2 days of right adnexal abdominal pain. Does describe as a stabbing, constant pain. Worsened by movement. She has tried ibuprofen without any improvement. She has not seen her primary care doctor regarding this concern. Reports that she has had similar symptoms in the past with prior ovarian cysts. She denies any vaginal bleeding or discharge. No fever or constitutional symptoms. Denies any trauma to the abdomen. She does have a surgical history of an appendectomy and prior C -sections TRAVEL OUTSIDE OF THE [place] IN LAST 30 DAYS: No - Related Data Allergies/Adverse Reactions: No Known Allergies Allergy (Verified 03/12/17 16:52) Past Medical History - General Information source: Patient - Social History Smoking Status: Current Every Day Smoker Frequency of alcohol use: None Drug Abuse: None Lives with: Spouse/Significant other Family History: Reviewed & Not Pertinent, Other - Pt. is adopted and is unsure of family history - Past Medical History Cardiac Medical History: Reports: Hx Hypertension - not current Pulmonary Medical History: Reports: Hx Pneumonia Neurological Medical History: Reports: Hx Migraine, Hx Seizures Renal/ Medical History: Denies: Hx Peritoneal Dialysis Psychiatric Medical History: Reports: Hx Bipolar Disorder, Hx Schizophrenia Past Surgical History: Reports: Hx Appendectomy, Hx Breast Surgery - bilateral lumpectomy, Hx Section - x3, Hx Tubal Ligation - Immunizations Immunizations up to date: Yes Hx Diphtheria, Pertussis, Tetanus Vaccination: Yes - 2009 Hx Pneumococcal Vaccination: 06/23/10 Review of Systems - Review of Systems Notes: Constitutional: Negative for fever. HENT: Negative for sore throat. Eyes: Negative for visual changes. Cardiovascular: Negative for chest pain. Respiratory: Negative for shortness of breath. Gastrointestinal: Positive for abdominal pain Genitourinary: Negative for dysuria. Musculoskeletal: Negative for back pain. Skin: Negative for rash. Neurological: Negative for headaches, weakness or numbness. 10 point ROS negative except as marked above and in HPI. Physical Exam - Vital signs Vitals: Temp Pulse Resp BP Pulse Ox 98.7 F 107 H 14 130/78 H 98 03/12/17 16:51 03/12/17 16:51 03/12/17 16:51 03/12/17 16:51 03/12/17 16:51 Interpretation: Tachycardic Notes: PHYSICAL EXAMINATION: GENERAL: Well-appearing, well-nourished and in no acute distress. HEAD: Atraumatic, normocephalic. EYES: Pupils equal round and reactive to light, extraocular movements intact, sclera anicteric, conjunctiva are normal. ENT: nares patent, oropharynx clear without exudates. Moist mucous membranes. NECK: Normal range of motion, supple without lymphadenopathy LUNGS: Breath sounds clear to auscultation bilaterally and equal. No wheezes rales or rhonchi. HEART: Regular rate and rhythm without murmurs ABDOMEN: Soft, mild right adnexal pain otherwise no focal abdominal tenderness, normoactive bowel sounds. No guarding, no rebound. No masses appreciated. EXTREMITIES: Normal range of motion, no pitting or edema. No cyanosis. NEUROLOGICAL: No focal neurological deficits. Moves all extremities spontaneously and on command. PSYCH: Normal mood, normal affect. SKIN: Warm, Dry, normal turgor, no rashes or lesions noted. Course - Re-evaluation Re-evalutation: 03/12/17 20:59 Patient presents with right adnexal pain that is been present for the past 2 days. She has no additional focal abdominal tenderness on examination. Vitals within normal limits. Initial tachycardia noted in triage is resolved at time of my assessment. She has a ready had an appendectomy. Transvaginal ultrasound does reveal a right ovarian cyst which would be consistent with patient's presentation and abdominal examination. No evidence of torsion or TOA. She denies any dysuria. I do not suspect an acute nephrolithiasis, pyelonephritis, pancreatitis, acute biliary pathology, or any other life- threatening pathology based on her exam and history. Patient will be started on control as she has a history of recurrent ovarian cyst with similar presentations and is requesting long-term control. I have also encouraged her to follow-up with [facility] for long-term management. Return precautions have been discussed at length. Medication precautions reviewed. - Vital Signs Vital signs: Temp Pulse Resp BP Pulse Ox 97.9 F 86 16 138/68 H 97 03/12/17 20:44 03/12/17 20:44 03/12/17 20:44 03/12/17 20:44 03/12/17 20:44 - Laboratory Result Diagrams: 03/12/17 18:50 03/12/17 18:50 Laboratory results interpreted by me: 03/12/17 03/12/17 03/12/17 16:52 18:50 18:50 Hct 34.8 L RDW 14.3 H BUN 6 L AST 13 L Urine Blood SMALL H - Diagnostic Test Radiology reviewed: Reports reviewed Discharge - Discharge Clinical Impression: Lower abdominal pain Ovarian cyst Qualifiers: Laterality: right Qualified Code(s): N83.201 - Unspecified ovarian cyst, right side Condition: Good Disposition: HOME, SELF-CARE Additional Instructions: Your pain is likely due to an ovarian cyst on your right ovary. You are being started on control to regulate your cycle and prevent further cysts. DO NOT TAKE THE PLACEBO PILLS. For your pain: Take ibuprofen 600 mg and acetaminophen 1000 mg every 6 hours together as needed for pain. You can also apply heat to the area and use [id number] lidocaine for additional relief. Please follow-up with your [facility] at your earliest ability. Return for worsening pain, fever greater than 101F, persistent vomiting, or any other symptoms that are worrisome to you. Prescriptions: Norgestimate-Ethinyl Estradiol [Sprintec 28 Day Tablet] 1 each PO DAILY #2 packet Referrals: LIONEL GARCIA MD [Primary Care Provider] - Follow up as needed
[2017-03-12] MEDS ORDERED: LIDOCAINE 5% (700 MG) TRANSDERMAL ADH..PATCH ONE ×2 (22:11)
== END 2017-03-12 22:21 | disposition home or self-care (01) ==
LOC: ER 16:48
DX: N83.201 Unspecified ovarian cyst, right side (principal); R10.30 Lower abdominal pain, unspecified; R10.9 Unspecified abdominal pain; F17.200 Nicotine dependence, unspecified, uncomplicated
CPT/HCPCS: 99284; 36415; 85025; 80053; 81001; 76830; J3490

== ENCOUNTER 2017-04-03 18:43 | Emergency (ER) | payer MEDICAID ==
[2017-04-03] MEDS ORDERED: DEXAMETHASONE SOD PHOS INJ 10 MG/1 ML VIAL IM ONE (21:43)
[2017-04-03] MEDS ORDERED: ONDANSETRON 4 MG TAB.RAPDIS PO ONE (21:43)
[2017-04-03] MEDS ORDERED: KETOROLAC TROMETHAMINE 60 MG/2 ML SDV IM ONE (21:43)
--- NOTE | 2017-04-03 21:48 | ER Document Report ---
ED ENT - General Chief Complaint: THROAT PAIN Stated Complaint: SORE THROAT,HEADACHE,VOMITING Mode of Arrival: Ambulatory Information source: Patient TRAVEL OUTSIDE OF THE [place] IN LAST 30 DAYS: No - HPI Patient complains to provider of: Throat problem Onset: This morning Quality of pain: Sharp Severity: Moderate Location of pain: Ears, Throat Associated symptoms: Chills, Ear pain, Fever, Headache, Sore throat. denies: Congestion, Cough, Difficulty swallowing, Dizziness, Drooling, Ear drainage, Hoarse voice, Jaw swelling, Neck pain, Nose bleed, Runny nose, Stiff neck, Swollen glands, Tinnitus, Vertigo Notes: The patient arrives with complaints of sore throat. She states that she woke up this morning with the sore throat. Pain is much worse with swallowing. She has referred pain to both ears. She complains of a mild headache. She denies any head injury. She denies any blurred or lost vision. She denies any numbness, tingling, weakness. She denies any blood thinners. She denies any IV drug use. She denies any neck stiffness. She denies any difficulty breathing or swallowing but states that it hurts to swallow. She has had nausea , but denies any vomiting or diarrhea. No abdominal pain. No chest pain or shortness of breath. No rash. She denies any known sick contacts. She denies any known medical problems and denies any immune suppressive diseases. - Related Data Allergies/Adverse Reactions: No Known Allergies Allergy (Verified 03/12/17 16:52) Past Medical History - Social History Smoking Status: Never Smoker Chew tobacco use (# tins/day): No Frequency of alcohol use: None Drug Abuse: None Family History: Reviewed & Not Pertinent, Other - Pt. is adopted and is unsure of family history Patient has suicidal ideation: No Patient has homicidal ideation: No - Past Medical History Cardiac Medical History: Reports: Hx Hypertension - not current Pulmonary Medical History: Reports: Hx Pneumonia Neurological Medical History: Reports: Hx Migraine, Hx Seizures Renal/ Medical History: Denies: Hx Peritoneal Dialysis Psychiatric Medical History: Reports: Hx Bipolar Disorder, Hx Schizophrenia Past Surgical History: Reports: Hx Appendectomy, Hx Breast Surgery - bilateral lumpectomy, Hx Section - x3, Hx Tubal Ligation - Immunizations Immunizations up to date: Yes Hx Diphtheria, Pertussis, Tetanus Vaccination: Yes - 2009 Hx Pneumococcal Vaccination: 06/23/10 Review of Systems - Review of Systems -: Yes All other systems reviewed and negative Physical Exam - Vital signs Vitals: Temp Pulse Resp BP Pulse Ox 100.1 F 115 H 20 138/77 H 99 04/03/17 20:21 04/03/17 20:21 04/03/17 20:21 04/03/17 20:21 04/03/17 20:21 - Notes Notes: GENERAL: alert, cooperative, nontoxic, no distress. HEAD: normocephalic, atraumatic EYES: conjunctiva pink without discharge, no external redness or swelling. PERRL. EARS: no external swelling, no external redness NOSE: atraumatic, no external swelling MOUTH/THROAT: mucous membranes moist and pink. Mild erythema and mild tonsillar as well as uvular swelling to the posterior pharynx. Small amount of exudate noted. No palatal petechiae noted. No sign of peritonsillar abscess. No trismus or drooling. NECK: soft, supple, full range of motion, no meningismus. Bilateral anterior cervical lymphadenopathy. CHEST: no distress, lungs clear and equal throughout. No wheezing, rales, rhonchi. CARDIAC: regular rate and rhythm, no murmur, normal capillary refill, normal pulses. No peripheral edema noted. ABDOMEN: Soft, nontender. BACK: full range of motion, no CVA tenderness. EXTREMITIES: full range of motion of all extremities. No redness, no swelling. NEURO: alert and oriented x 3, no focal deficits, full range of motion of all extremities. Cranial nerves II through XII are grossly intact. PYSCH: appropriate mood, affect. Patient is cooperative. SKIN: pink, warm, dry, no rash. Course - Re-evaluation Re-evalutation: 04/03/17 21:46 Patient is nontoxic appearing with stable vitals. The patient woke up this morning with a sore throat. Complains of a mild headache. She had nausea, no vomiting or diarrhea. She has had no head injury. She is on no blood thinners. No sign or risk of epidural abscess/bleed. She has no sign of meningitis. She is noted to have erythema to the posterior pharynx with mild swelling to the uvula as well. Rapid strep is negative. This is most likely due to a viral illness. She has no sign of peritonsillar abscess, epiglottitis. She is in no distress. She is swallowing her secretions without difficulty. Patient has no signs of sepsis. Patient will be given a shot of Toradol, shot of Decadron, dose of Zofran here in the emergency department. We will discharge her home. Throat culture is currently pending at this time. She will be contacted for a positive result. In the meantime the patient will be discharged home with a prescription for Voltaren, Phenergan. Instructions to rest, drink plenty of fluids, follow-up if not improving in the next 3-5 days, follow-up sooner for increased pain, fever, difficulty breathing or swallowing, or any further concerns. The patient is noted to have elevated blood pressure during today's emergency department visit. The patient was informed of this finding. The patient was instructed that this may be related to pre-hypertension and requires further evaluation with a primary care provider. The patient has no hypertensive symptoms at this time. The patient's emergency department workup and current diagnosis were explained to the patient and or family. Follow-up instructions were provided. Medications if prescribed were discussed. Instructions for when to return to the emergency department including specific worrisome symptoms were discussed with the patient and/or family. 04/03/17 21:49 04/03/17 23:22 Patient is feeling somewhat better after medications. Her vital signs have improved, she is no longer tachycardic. Patient again likely has a viral illness. She has no signs of sepsis or SIRS. Patient will be discharged home with NSAIDs, tramadol, Phenergan. Follow-up if not improving in the next 3 days , sooner if getting worse. - Vital Signs Vital signs: Temp Pulse Resp BP Pulse Ox 99.4 F 98 14 112/69 97 04/03/17 23:44 04/03/17 23:44 04/03/17 23:44 04/03/17 23:44 04/03/17 23:44 Discharge - Discharge Clinical Impression: Viral pharyngitis Condition: Stable Disposition: HOME, SELF-CARE Instructions: Sore Throat ([facility]), Viral Syndrome ([facility]) Additional Instructions: Take medications as prescribed. Drink plenty of fluids. Follow-up if not better in 3-5 days, sooner for worsening symptoms, difficulty breathing, difficulty swallowing, severe neck stiffness, persistent vomiting, abdominal pain, or any further concerns. Your blood pressure was elevated during today's visit. Have this rechecked with your doctor. The medication you were prescribed today may cause drowsiness. Do not drive or operate heavy machinery while taking this medication. Prescriptions: Promethazine HCl [Phenergan 25 mg Tablet] 25 mg PO Q6HP PRN #10 tablet PRN Reason: Diclofenac Sodium [Voltaren] 75 mg PO BID #20 tablet. Tramadol HCl [Ultram] 50 mg PO TID PRN #10 tablet PRN Reason: Referrals: LIONEL GARCIA MD [Primary Care Provider] - Follow up as needed
[2017-04-03] MEDS ORDERED: ACETAMINOPHEN 325 MG TABLET PO ONE (21:52)
[2017-04-03 23:45] VITALS: BP 112/69
== END 2017-04-03 23:45 | disposition home or self-care (01) ==
LOC: ER 18:43
DX: J02.8 Acute pharyngitis due to other specified organisms (principal); B97.89 Other viral agents as the cause of diseases classified elsewhere; R50.9 Fever, unspecified; R51 Headache; R11.0 Nausea; I10 Essential (primary) hypertension
CPT/HCPCS: 99284; 96372; 87070; 87880; 87077; J3490; J1885; S0119; J1100

== ENCOUNTER 2017-04-09 18:36 | Emergency (ER) | payer MEDICAID ==
[2017-04-09 19:42] LABS: APPEARANCE,URINE SLIGHTLY-CLOUDY; BILIRUBIN,URINE NEGATIVE (NEGATIVE); GLUCOSE, URINE NEGATIVE (NEGATIVE); KETONES,URINE NEGATIVE (NEGATIVE); LEUKOCYTE ESTERASE,URINE NEGATIVE (NEGATIVE); NITRITE,URINE NEGATIVE (NEGATIVE); PROTEIN,URINE 30 mg/dL (NEGATIVE); URINE SPECIFIC GRAVITY 1.006; UROBILINOGEN,URINE NEGATIVE mg/dL (<2.0)
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
[2017-04-09 19:56] LABS: URINE BARBITURATES SCREEN NEGATIVE; URINE METHADONE SCREEN NEGATIVE; URINE OPIATES LOW NEGATIVE; URINE PHENCYCLIDINE SCREEN NEGATIVE
[2017-04-09 20:59] LABS: ABSOLUTE EOSINOPHILS # (AUTO) 0.3 10^3/uL (0.0-0.6); ABSOLUTE LYMPHOCYTES (AUTO) 2.2 10^3/uL (0.5-4.7); ABSOLUTE MONOCYTES (AUTO) 0.8 10^3/uL (0.1-1.4); ABSOLUTE NEUT (AUTO) 6.1 10^3/uL (1.7-8.2); BASOPHILS % (AUTO) 0.5 % (0-2); EOSINOPHILS % (AUTO) 2.9 % (0-6); HEMATOCRIT 32.4 % (36.0-47.0); HEMOGLOBIN 11.5 g/dL (12.0-15.5); HGB HCT DIFFERENCE 2.1; LYMPHOCYTES % (AUTO) 23.1 % (13-45); MEAN CORPUSCULAR HEMOGLOBIN 31.9 pg (27.0-33.4); MEAN CORPUSCULAR HGB CONC 35.5 g/dL (32.0-36.0); MEAN CORPUSCULAR VOLUME 90 fl (80-97); RED BLOOD COUNT 3.61 10^6/uL (3.72-5.28); RED CELL DISTRIBUTION WIDTH 14.1 % (11.5-14.0); SEGMENTED NEUTROPHILS % (AUTO) 64.5 % (42-78); WHITE BLOOD COUNT 9.4 10^3/uL (4.0-10.5)
[2017-04-09 21:15] LABS: ALANINE AMINOTRANSFERASE 20 U/L (9-52); ALBUMIN 4.1 g/dL (3.5-5.0); ALKALINE PHOSPHATASE 79 U/L (38-126); ANION GAP 10 (5-19); ASPARTATE AMINO TRANSFERASE 17 U/L (14-36); BILIRUBIN,DIRECT 0.2 mg/dL (0.0-0.4); BILIRUBIN,TOTAL 0.3 mg/dL (0.2-1.3); BLOOD UREA NITROGEN 9 mg/dL (7-20); CALCIUM 9.7 mg/dL (8.4-10.2); CARBON DIOXIDE 25 mmol/L (22-30); CHLORIDE 108 mmol/L (98-107); CREATININE RESULT 0.92 mg/dL (0.52-1.25); GLUCOSE 86 mg/dL (75-110); POTASSIUM 4.5 mmol/L (3.6-5.0); SODIUM 142.9 mmol/L (137-145); TOTAL PROTEIN 6.8 g/dL (6.3-8.2)
[2017-04-09 21:17] LABS: ALCOHOL < 10 mg/dL (NONE DETECTED)
--- NOTE | 2017-04-10 09:32 | ER Document Report ---
Doctor's Note Notes: 04/10/17 09:31 Patient resting comfortably on stretcher, denies any needs at present time, lab and vital signs were reviewed which remained stable, patient will remain on involuntary commitment until other arrangements for transfer or discharge are made by the mental health team
[2017-04-10] MEDS ORDERED: TOPIRAMATE 25 MG TABLET PO SCH ×2 (11:00→12:00)
[2017-04-10] MEDS ORDERED: BENZTROPINE MESYLATE 1 MG TABLET PO SCH ×2 (11:00→12:00)
[2017-04-10] MEDS ORDERED: OLANZAPINE 5 MG TABLET PO SCH ×2 (11:00→12:00)
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
[2017-04-10] MEDS ORDERED: TRAMADOL HCL 50 MG TABLET PO PRN (12:01)
[2017-04-10] MEDS ORDERED: PROMETHAZINE HCL 25 MG TABLET PO PRN (12:01)
[2017-04-10 12:41] VITALS: BP 130/82
[2017-04-10] MEDS ORDERED: BRIVARACETAM 50 MG PO SCH (18:00)
[2017-04-10] MEDS ORDERED: POLYETHYLENE GLYCOL 17 GM PO SCH (18:00)
[2017-04-10] MEDS ORDERED: POLYETHYLENE GLYCOL 3350 POWDER 17 GM/1 PACKET PO SCH (18:00)
[2017-04-10] MEDS ORDERED: LUBIPROSTONE 24 MCG CAPSULE PO SCH (18:00)
[2017-04-10] MEDS ORDERED: (PENDING PHARMACY ID) (Diclofenac Sodium [Voltaren] 75 MG) PO SCH (18:00)
--- NOTE | 2017-04-10 20:18 | EKG REPORT ---
SEVERITY:- OTHERWISE NORMAL ECG - SINUS RHYTHM LEFT AXIS DEVIATION : Confirmed by: Chula Mar MD 10-Apr-2017 20:17:02
[2017-04-10] MEDS ORDERED: QUETIAPINE FUMARATE 100 MG TABLET PO SCH (22:00)
[2017-04-10] MEDS ORDERED: DICLOFENAC SODIUM 25 MG TABLET.DR PO SCH (22:00)
[2017-04-10] MEDS ORDERED: LAMOTRIGINE 100 MG TABLET PO SCH (22:00)
[2017-04-10] MEDS ORDERED: (PENDING PHARMACY ID) (Quetiapine Fumarate [Seroquel] 400 MG) PO SCH (22:00)
[2017-04-11] MEDS ORDERED: HYDROXYZINE PAMOATE 25 MG CAPSULE PO SCH (10:00)
== END 2017-04-10 12:48 ==
LOC: ER 18:36
DX: R45.851 Suicidal ideations (principal); R44.3 Hallucinations, unspecified
CPT/HCPCS: 93005; 99285; 36415; 80307 ×4; 85025; 81025; 80053; 81001; 93010; J3490 ×3

== ENCOUNTER 2017-07-04 13:36 | Emergency (ER) | payer MEDICAID ==
--- NOTE | 2017-07-04 14:16 | ER Document Report ---
ED General - General Chief Complaint: Trouble Voiding Stated Complaint: DIFFICULTY URINATING, PRESSURE Time Seen by Provider: 07/04/17 14:07 Notes: 37-year-old female here with complaints of urinary hesitancy and suprapubic pressure that started 3 days ago. She had a fever yesterday of 102 Fahrenheit. She denies any nausea vomiting diarrhea chills. She has not tried taking anything for the symptoms. She has no prior history of urinary tract infection. TRAVEL OUTSIDE OF THE [place] IN LAST 30 DAYS: No - Related Data Allergies/Adverse Reactions: No Known Allergies Allergy (Verified 07/04/17 13:36) Home Medications: Current Home Medications Brivaracetam [Briviact] 100 mg PO BID 07/04/17 [History] Lamotrigine 200 mg PO BID 07/04/17 [History] Lurasidone HCl [Latuda] 120 mg PO DAILY 07/04/17 [History] Paroxetine HCl 20 mg PO DAILY 07/04/17 [History] Prazosin HCl 5 mg PO DAILY 07/04/17 [History] Quetiapine Fumarate [Seroquel] 400 mg PO DAILY 07/04/17 [History] Past Medical History - Social History Smoking Status: Never Smoker Chew tobacco use (# tins/day): No Frequency of alcohol use: None Drug Abuse: None Family History: Reviewed & Not Pertinent, Other - Pt. is adopted and is unsure of family history Patient has suicidal ideation: No Patient has homicidal ideation: No - Past Medical History Cardiac Medical History: Reports: Hx Hypertension - not current Pulmonary Medical History: Reports: Hx Pneumonia Neurological Medical History: Reports: Hx Migraine, Hx Seizures Renal/ Medical History: Denies: Hx Peritoneal Dialysis Psychiatric Medical History: Reports: Hx Bipolar Disorder, Hx Schizophrenia Past Surgical History: Reports: Hx Appendectomy, Hx Breast Surgery - bilateral lumpectomy, Hx Section - x3, Hx Tubal Ligation - Immunizations Immunizations up to date: Yes Hx Diphtheria, Pertussis, Tetanus Vaccination: Yes - 2009 Hx Pneumococcal Vaccination: 06/23/10 Review of Systems - Review of Systems Notes: See history of present illness for pertinent positive review of systems; otherwise all review of systems have been reviewed and are negative Physical Exam - Vital signs Vitals: Temp Pulse Resp BP Pulse Ox 99.0 F 78 16 120/86 H 95 07/04/17 13:44 07/04/17 13:44 07/04/17 13:44 07/04/17 13:44 07/04/17 13:44 - Notes Notes: PHYSICAL EXAMINATION: GENERAL: Well-appearing and in no acute distress. HEAD: Atraumatic, normocephalic. EYES: Pupils equal round and reactive to light, extraocular movements intact, sclera anicteric, conjunctiva are normal. ENT: nares patent, oropharynx clear without exudates. Moist mucous membranes. NECK: Normal range of motion, supple without lymphadenopathy LUNGS: CTAB and equal. No wheezes rales or rhonchi. HEART: Regular rate and rhythm without murmurs ABDOMEN: Soft, mild suprapubic tenderness. No guarding, no rebound EXTREMITIES: Normal range of motion, no pitting edema. No cyanosis. NEUROLOGICAL: Cranial nerves grossly intact. Normal sensory/motor exams. PSYCH: Normal mood, normal affect. SKIN: Warm, Dry, normal turgor, no rashes or lesions noted Course - Re-evaluation Re-evalutation: 07/04/17 14:15 MEDICAL DECISION MAKING: Concern for urinary tract infection Will obtain urinalysis Patient understands and agrees to the plan of care 07/04/17 14:51 Urinalysis does not show any kaleb signs of infection However given her symptoms we will prescribe antibiotics and Pyridium Instructed follow-up PCP next day or few She understands agrees plan of care - Vital Signs Vital signs: Temp Pulse Resp BP Pulse Ox 99.0 F 78 16 120/86 H 95 07/04/17 13:44 07/04/17 13:44 07/04/17 13:44 07/04/17 13:44 07/04/17 13:44 - Laboratory Laboratory results interpreted by me: 07/04/17 14:20 Urine Urobilinogen 2.0 H Discharge - Discharge Clinical Impression: Urinary hesitancy Condition: Good Disposition: HOME, SELF-CARE Additional Instructions: Finish the antibiotics and do not skip any doses. You were seen in the emergency department at [facility]. If you were given any sedating medications, be sure not to operate heavy machinery (example - driving ) and be sure you are not too sedated to walk appropriately. Please followup with your primary physician in the next few days for further management/ evaluation. Please return to the emergency department for worsening of symptoms or any symptom that you deem to be concerning or life-threatening. Thank you for allowing us to be part of your care. Prescriptions: Nitrofurantoin/Nitrofuran Mac [Macrobid 100 mg Capsule] 1 tab PO BID #20 capsule Phenazopyridine HCl [Pyridium 100 Mg Tablet] 100 mg PO BIDP PRN #14 tablet PRN Reason:
[2017-07-04 14:40] LABS: APPEARANCE,URINE CLEAR; BILIRUBIN,URINE NEGATIVE (NEGATIVE); COLOR,URINE YELLOW; GLUCOSE, URINE NEGATIVE (NEGATIVE); KETONES,URINE NEGATIVE (NEGATIVE); LEUKOCYTE ESTERASE,URINE NEGATIVE (NEGATIVE); NITRITE,URINE NEGATIVE (NEGATIVE); PROTEIN,URINE NEGATIVE (NEGATIVE); URINE SPECIFIC GRAVITY 1.015
[2017-07-04 15:07] VITALS: BP 130/88
== END 2017-07-04 15:10 | disposition home or self-care (01) ==
LOC: ER 13:36
DX: R39.11 Hesitancy of micturition (principal); R33.9 Retention of urine, unspecified; R50.9 Fever, unspecified; Z79.899 Other long term (current) drug therapy
CPT/HCPCS: 81001; 87086; 99284

== ENCOUNTER 2017-07-12 16:19 | Emergency (ER) | payer MEDICAID ==
--- NOTE | 2017-07-12 17:31 | ER Document Report ---
ED Medical Screen (RME) - General Chief Complaint: Tremor Stated Complaint: SLURRED SPEECH Time Seen by Provider: 07/12/17 17:26 Mode of Arrival: Ambulatory Information source: Patient Notes: 37 yo non smoker, no drugs, non etoh female c/o jittering mouth, teeth, tremors in arms, shaking all over for 1 month. 24 hours per day for 2 days, was intermittent prior to that. Also having periods that she doesn't remember what she does. Hx bipolar II, seizures. Takes Keren Morris, PCP: Saw Dr. Ellis started on flexeril for back pain. TRAVEL OUTSIDE OF THE [place] IN LAST 30 DAYS: No - Related Data Allergies/Adverse Reactions: No Known Allergies Allergy (Verified 07/04/17 13:36) Past Medical History - Past Medical History Cardiac Medical History: Reports: Hx Hypertension - not current Pulmonary Medical History: Reports: Hx Pneumonia Neurological Medical History: Reports: Hx Migraine, Hx Seizures Renal/ Medical History: Denies: Hx Peritoneal Dialysis Psychiatric Medical History: Reports: Hx Bipolar Disorder, Hx Schizophrenia Past Surgical History: Reports: Hx Appendectomy, Hx Breast Surgery - bilateral lumpectomy, Hx Section - x3, Hx Tubal Ligation - Immunizations Immunizations up to date: Yes Hx Diphtheria, Pertussis, Tetanus Vaccination: Yes - 2009 Physical Exam - Vital signs Vitals: Temp Pulse Resp BP Pulse Ox 99.0 F 107 H 14 106/69 98 07/12/17 16:28 07/12/17 16:28 07/12/17 16:28 07/12/17 16:28 07/12/17 16:28 Course - Vital Signs Vital signs: Temp Pulse Resp BP Pulse Ox 99.0 F 107 H 14 106/69 98 07/12/17 16:28 07/12/17 16:28 07/12/17 16:28 07/12/17 16:28 07/12/17 16:28
--- NOTE | 2017-07-12 19:16 | RADIOLOGY REPORT (SQ) ---
EXAM DESCRIPTION: CT HEAD WITHOUT COMPLETED DATE/TIME: 07/12/2017 6:44 pm REASON FOR STUDY: tremors COMPARISON: 01/15/2017 TECHNIQUE: Axial images acquired through the brain without intravenous contrast. Images reviewed wi th bone, brain and subdural windows. Images stored on PACS. All CT scanners at this facility use dose modulation, iterative reconstruction, and/or weight based d osing when appropriate to reduce radiation dose to as low as reasonably achievable (ALARA). [facility]: Dose Right [facility]: CareDose [facility]: Dose Right [facility]: Teradose 4D [facility]: Affinity.is RADIATION DOSE: CT Rad equipment meets quality standard of care and radiation dose reduction techniq ues were employed. CTDIvol: 64.6 mGy. DLP: 1163 mGy-cm. mGy. LIMITATIONS: None. FINDINGS: VENTRICLES: Normal size and contour. CEREBRUM: No masses. No hemorrhage. No midline shift. No evidence for acute infarction. Normal gra y/white matter differentiation. No areas of low density in the white matter. CEREBELLUM: No masses. No hemorrhage. No alteration of density. No evidence for acute infarction. EXTRAAXIAL SPACES: No fluid collections. No masses. ORBITS AND GLOBE: No intra- or extraconal masses. Normal contour of globe without masses. CALVARIUM: No fracture. PARANASAL SINUSES: No fluid or mucosal thickening. SOFT TISSUES: No mass or hematoma. OTHER: No other significant finding. IMPRESSION: NORMAL BRAIN CT WITHOUT CONTRAST. EVIDENCE OF ACUTE STROKE: NO. COMMENT: Quality ID # [id number]: Final reports with documentation of one or more dose reduction techniques (e.g., Automated exposure control, adjustment of the mA and/or kV according to patient size, use of iterative reconstruction technique) TECHNICAL DOCUMENTATION: JOB ID: [id number] [employer]- All Rights Reserved
[2017-07-12 19:27] LABS: ABSOLUTE BASOPHILS # (AUTO) 0.1 10^3/uL (0.0-0.2); ABSOLUTE EOSINOPHILS # (AUTO) 0.2 10^3/uL (0.0-0.6); ABSOLUTE LYMPHOCYTES (AUTO) 3.3 10^3/uL (0.5-4.7); ABSOLUTE MONOCYTES (AUTO) 0.7 10^3/uL (0.1-1.4); BASOPHILS % (AUTO) 0.6 % (0-2); EOSINOPHILS % (AUTO) 2.6 % (0-6); HEMATOCRIT 36.3 % (36.0-47.0); HEMOGLOBIN 12.3 g/dL (12.0-15.5); LYMPHOCYTES % (AUTO) 35.4 % (13-45); MEAN CORPUSCULAR HEMOGLOBIN 30.9 pg (27.0-33.4); MEAN CORPUSCULAR HGB CONC 33.9 g/dL (32.0-36.0); MEAN CORPUSCULAR VOLUME 91 fl (80-97); MONOCYTES % (AUTO) 7.9 % (3-13); PLATELET COUNT 351 10^3/uL (150-450); RED BLOOD COUNT 3.99 10^6/uL (3.72-5.28); RED CELL DISTRIBUTION WIDTH 13.4 % (11.5-14.0); SEGMENTED NEUTROPHILS % (AUTO) 53.5 % (42-78); TOTAL CELLS COUNTED % (AUTO) 100 %; WHITE BLOOD COUNT 9.4 10^3/uL (4.0-10.5)
[2017-07-12 19:33] LABS: APPEARANCE,URINE SLIGHTLY-CLOUDY; BILIRUBIN,URINE NEGATIVE (NEGATIVE); COLOR,URINE YELLOW; GLUCOSE, URINE NEGATIVE (NEGATIVE); KETONES,URINE NEGATIVE (NEGATIVE); LEUKOCYTE ESTERASE,URINE NEGATIVE (NEGATIVE); NITRITE,URINE NEGATIVE (NEGATIVE); PROTEIN,URINE NEGATIVE (NEGATIVE); URINE SPECIFIC GRAVITY 1.004; UROBILINOGEN,URINE NEGATIVE mg/dL (<2.0)
--- NOTE | 2017-07-12 19:52 | ER Document Report ---
ED General - General Chief Complaint: Tremor Stated Complaint: SLURRED SPEECH Time Seen by Provider: 07/12/17 17:26 Mode of Arrival: Ambulatory Notes: Patient is a 37-year-old female comes emergency department for chief complaint of shakiness, tremors, feeling like she cannot get words out clearly, and jitteriness. She states that she has had these symptoms intermittently for months, recently they have worsened, she states that now she feels like they are constant. Significant other at bedside states they become constant over the past 3 weeks. Patient denies headache, fever, nausea or vomiting, focal numbness or weakness. Past medical history of bipolar disorder and schizophrenia, on Seroquel, Lamictal, states she was given Cogentin for the symptoms but they have not improved. TRAVEL OUTSIDE OF THE [place] IN LAST 30 DAYS: No - Related Data Allergies/Adverse Reactions: No Known Allergies Allergy (Verified 07/04/17 13:36) Past Medical History - General Information source: Patient - Social History Smoking Status: Never Smoker Chew tobacco use (# tins/day): No Frequency of alcohol use: None Drug Abuse: None Lives with: Spouse/Significant other Family History: Reviewed & Not Pertinent, Other Patient has suicidal ideation: No Patient has homicidal ideation: No - Past Medical History Cardiac Medical History: Reports: Hx Hypertension - not current Pulmonary Medical History: Reports: Hx Pneumonia Neurological Medical History: Reports: Hx Migraine, Hx Seizures Renal/ Medical History: Denies: Hx Peritoneal Dialysis Psychiatric Medical History: Reports: Hx Bipolar Disorder, Hx Schizophrenia Past Surgical History: Reports: Hx Appendectomy, Hx Breast Surgery - bilateral lumpectomy, Hx Section - x3, Hx Tubal Ligation - Immunizations Immunizations up to date: Yes Hx Diphtheria, Pertussis, Tetanus Vaccination: Yes - 2009 Hx Pneumococcal Vaccination: 06/23/10 Review of Systems - Review of Systems Constitutional: No symptoms reported EENT: No symptoms reported Cardiovascular: No symptoms reported Respiratory: No symptoms reported Gastrointestinal: No symptoms reported Genitourinary: No symptoms reported Female Genitourinary: No symptoms reported Musculoskeletal: See HPI Skin: No symptoms reported Hematologic/Lymphatic: No symptoms reported Neurological/Psychological: See HPI Physical Exam - Vital signs Vitals: Temp Pulse Resp BP Pulse Ox 99.0 F 107 H 14 106/69 98 07/12/17 16:28 07/12/17 16:28 07/12/17 16:28 07/12/17 16:28 07/12/17 16:28 Interpretation: Normal - General General appearance: Appears well, Alert In distress: None - HEENT Head: Normocephalic, Atraumatic Eyes: Normal Pupils: PERRL - Respiratory Respiratory status: No respiratory distress Chest status: Nontender Breath sounds: Normal Chest palpation: Normal - Cardiovascular Rhythm: Regular Heart sounds: Normal auscultation Murmur: No - Abdominal Inspection: Normal Distension: No distension Bowel sounds: Normal Tenderness: Nontender Organomegaly: No organomegaly - Back Back: Normal, Nontender - Extremities General upper extremity: Normal inspection, Nontender, Normal color, Normal ROM , Normal temperature General lower extremity: Normal inspection, Nontender, Normal color, Normal ROM , Normal temperature, Normal weight bearing. No: Valarie's sign - Neurological Neuro grossly intact: Yes Cognition: Normal Orientation: AAOx4 Clarisa Coma Scale Eye Opening: Spontaneous [place]ford Coma Scale Verbal: Oriented Clarisa Coma Scale Motor: Obeys Commands Clarisa Coma Scale Total: 15 Speech: Other - Patient occasionally rolls words on her tongue but does not specifically have a fascia or dysarthria. No: Dysarthria Cerebellar coordination: Other - Patient with occasional tremors and shaking although she has no gait ataxia, finger-nose rhombey testing is normal Motor strength normal: LUE, RUE, LLE, RLE Sensory: Normal - Psychological Associated symptoms: Normal affect, Normal mood - Skin Skin Temperature: Warm Skin Moisture: Dry Skin Color: Normal Course - Re-evaluation Re-evalutation: Patient with intermittent symptoms on my evaluation. Reportedly these have been going on for some time. Does not appear to be specific dystonic reaction to her medications although her symptoms are listed as possible side effects of her Lamictal. I did review workup performed by triage including CAT scan of the head with no acute findings. Laboratory workup generally unremarkable. No cocaine or other concerning findings on drug screen. Patient was given Benadryl and Ativan and did have some improvement of symptoms although she still has them intermittently. I attempted to call her neurologist , Dr. Greer, unable to reach him on both of his phone numbers. Discussed with patient. Requesting to go home. Because symptoms have been ongoing, patient will follow up tomorrow with her neurologist, discussed findings, recommendations, discussed return precautions. Patient and significant other state understanding and agreement. - Vital Signs Vital signs: Temp Pulse Resp BP Pulse Ox 98.8 F 105 H 18 120/77 98 07/12/17 22:29 07/12/17 22:29 07/12/17 22:29 07/12/17 22:29 07/12/17 22:29 - Laboratory Result Diagrams: 07/12/17 19:12 07/12/17 19:12 Discharge - Discharge Clinical Impression: Tremor Condition: Stable Disposition: HOME, SELF-CARE Additional Instructions: Your workup shows no concerning abnormalities. Your examination and symptoms are very suggestive that this is a medication side effect, possibly the lamictal. However do not stop this at this time due to the likelihood that you will have seizures if you do. Call on Friday to speak to your Neurologist for additional management and adjustments. Return for any concerning or worsening symptoms. Referrals: LIONEL GARCIA MD [Primary Care Provider] - Follow up as needed
[2017-07-12] MEDS ORDERED: DIPHENHYDRAMINE HCL 50 MG/ML VIAL IM ONE (19:54)
[2017-07-12] MEDS ORDERED: LORAZEPAM 1 MG TABLET PO ONE (19:57)
[2017-07-12 20:00] LABS: ALANINE AMINOTRANSFERASE 24 U/L (9-52); ALBUMIN 4.9 g/dL (3.5-5.0); ALKALINE PHOSPHATASE 78 U/L (38-126); ANION GAP 12 (5-19); ASPARTATE AMINO TRANSFERASE 20 U/L (14-36); BILIRUBIN,DIRECT 0.2 mg/dL (0.0-0.4); BILIRUBIN,TOTAL 0.3 mg/dL (0.2-1.3); BLOOD UREA NITROGEN 11 mg/dL (7-20); CALCIUM 10.1 mg/dL (8.4-10.2); CARBON DIOXIDE 22 mmol/L (22-30); CHLORIDE 107 mmol/L (98-107); GLUCOSE 100 mg/dL (75-110); MAGNESIUM 1.7 mg/dL (1.6-2.3); POTASSIUM 3.9 mmol/L (3.6-5.0); TOTAL PROTEIN 7.8 g/dL (6.3-8.2)
[2017-07-12 20:31] LABS: URINE AMPHETAMINES SCREEN NEGATIVE; URINE BARBITURATES SCREEN NEGATIVE; URINE BENZODIAZEPINES SCREEN NEGATIVE; URINE COCAINE SCREEN NEGATIVE; URINE MARIJUANA (THC) SCREEN NEGATIVE; URINE METHADONE SCREEN NEGATIVE; URINE PHENCYCLIDINE SCREEN NEGATIVE
[2017-07-12 23:07] VITALS: BP 120/77
== END 2017-07-12 22:29 | disposition home or self-care (01) ==
LOC: ER 16:19
DX: R25.1 Tremor, unspecified (principal); Z98.51 Tubal ligation status
CPT/HCPCS: 99284; 96372; 36415; 83735; 84703; 85025; 80053; 80175; 81001; 80307; 70450; J1200

== ENCOUNTER 2017-07-13 20:03 | Emergency (ER) | payer MEDICAID ==
[2017-07-13 20:19] VITALS: BP 104/47
--- NOTE | 2017-07-13 20:41 | ER Document Report ---
ED Medical Screen (RME) - General Chief Complaint: Trouble Talking Stated Complaint: SLURRED SPEECH Time Seen by Provider: 07/13/17 20:19 Mode of Arrival: Ambulatory Information source: Patient Notes: This is a 37-year-old female with a history of seizures as well as psychiatric history that presents to the emergency room with stuttering, agitation and jumpiness. Patient denies fever, chills, nausea vomiting. On discussions with the patient's , he states that symptoms actually started approximately 3 weeks ago. He does state that she started a new medicine (Paxil) at that time. She denies any focal motor weakness. The patient was seen and evaluated in the emergency room yesterday. She had a CT of the head which showed no obvious stroke. She had full panel of electrolytes and white count which look good. TRAVEL OUTSIDE OF THE [place] IN LAST 30 DAYS: No - HPI Onset: Other - 3 weeks ago Onset/Duration: Gradual Quality of pain: No pain Severity: None Pain Level: Denies Associated Symptoms: denies: Chest pain, Shortness of breath Exacerbated by: Denies Relieved by: Denies Similar symptoms previously: Yes Recently seen / treated by doctor: Yes - Related Data Smoking: Non-smoker Frequency of alcohol use: None Drug Abuse: None Allergies/Adverse Reactions: No Known Allergies Allergy (Verified 07/04/17 13:36) Past Medical History - General Information source: Patient - Social History Cigarette use (# per day): No Chew tobacco use (# tins/day): No Frequency of alcohol use: None Drug Abuse: None Lives with: Family Family history: None - Past Medical History Cardiac Medical History: Reports: Hx Hypertension - not current Pulmonary Medical History: Reports: Hx Pneumonia Neurological Medical History: Reports: Hx Migraine, Hx Seizures Renal/ Medical History: Denies: Hx Peritoneal Dialysis Psychiatric Medical History: Reports: Hx Bipolar Disorder, Hx Schizophrenia Past Surgical History: Reports: Hx Appendectomy, Hx Breast Surgery - bilateral lumpectomy, Hx Section - x3, Hx Tubal Ligation - Immunizations Immunizations up to date: Yes Hx Diphtheria, Pertussis, Tetanus Vaccination: Yes - 2009 Review of Systems - Review of Systems Constitutional: denies: Chills, Fever EENT: No symptoms reported Cardiovascular: No symptoms reported Respiratory: No symptoms reported Gastrointestinal: No symptoms reported Genitourinary: No symptoms reported Female Genitourinary: No symptoms reported Musculoskeletal: No symptoms reported Skin: No symptoms reported Hematologic/Lymphatic: No symptoms reported Neurological/Psychological: See HPI Physical Exam - Vital signs Vitals: Temp Pulse Resp BP Pulse Ox 98.8 F 111 H 20 104/47 L 98 07/13/17 20:15 07/13/17 20:15 07/13/17 20:15 07/13/17 20:15 07/13/17 20:15 Notes: Physical exam: GENERAL: 37-year-old female, alert and oriented 3, no acute distress. Patient does have stuttering. HEAD: Atraumatic, normocephalic. EYES: Pupils equal round and reactive to light, extraocular movements intact, sclera anicteric, conjunctiva are normal. ENT: TMs normal, nares patent, oropharynx clear without exudates. Moist mucous membranes. NECK: Normal range of motion, supple without obvious mass or JVD. LUNGS: Breath sounds clear to auscultation bilaterally and equal. No wheezes rales or rhonchi. HEART: Regular rate and rhythm without murmurs, rubs or gallops. ABDOMEN: Soft, normoactive bowel sounds. No tenderness to palpation. No guarding, no rebound. No masses appreciated. EXTREMITIES: Normal range of motion, no pitting or edema. No clubbing or cyanosis. NEUROLOGICAL: Cranial nerves II through XII grossly intact. Is no facial asymmetry. Her extraocular muscles are intact. She is alert and oriented 3. She does start her. She is moving all extremities and her motor exam is good. There is no focal weakness. Her sensory is grossly intact. Her cerebellar is grossly normal. Her gait is intact. PSYCH: Normal mood, normal affect. SKIN: Warm, Dry, normal turgor, no rashes or lesions noted. Course - Re-evaluation Re-evalutation: 07/13/17 20:56 After speaking in depth with the patient's , it sounds like the symptoms started after starting Paxil. I am going to have the patient wean off the Paxil and then stop. I did try and call Dr. Greer but I was unable to get a hold of him. I let the patient and her know and I want him to follow- up with Dr. Greer this week. Additionally, they do a follow-up this week with [facility]. Given them a copy of yesterday's CAT scan and lab so that they can bring to Dr. Greer's office. 07/13/17 20:56 At the time of discharge, I have instructed the patient at the bedside with regards to return precautions and follow-up recommendations. The opportunity for questions was given. The patient has verbalized understanding of these instructions and the need for follow-up. - Vital Signs Vital signs: Temp Pulse Resp BP Pulse Ox 98.8 F 111 H 20 104/47 L 98 07/13/17 20:15 07/13/17 20:15 07/13/17 20:15 07/13/17 20:15 07/13/17 20:15 Doctor's Discharge - Discharge Clinical Impression: Speech disorder, Medication reaction Condition: Stable Disposition: HOME, SELF-CARE Additional Instructions: As we discussed, the head CT from yesterday showed no evidence of strokes. Your complete metabolic panel showed good electrolytes and kidney function. I am concerned that this may be a reaction to the medicine and it sounds like the man last medicine you started was the Paxil (paroxetine). It sounds like the symptoms started shortly thereafter. I would like you to take half of Paxil ( you can cut it in half) each day for the next 5 days and then stop the medicine. I did try and call Dr. Greer but was unable to get through. I would like you to call the office tomorrow for an appointment this week. Tell him that the ER doctor saw you and wanted you seen in the office as because of the stuttering issue. Bring a copy of yesterday's CAT scan report and labs with you when you see him. Also I want you to discuss the symptoms with the doctors at [facility] with the plan of backing off the Paxil. Return to the emergency room for any worsening symptoms, arm weakness or any concerns or getting worse.
== END 2017-07-13 21:08 | disposition home or self-care (01) ==
LOC: ER 20:03
DX: T43.225A Adverse effect of selective serotonin reuptake inhibitors, initial encounter (principal); R47.81 Slurred speech; Z79.899 Other long term (current) drug therapy
CPT/HCPCS: 99284

== ENCOUNTER 2017-07-17 09:17 | Emergency (ER) | payer MEDICAID ==
--- NOTE | 2017-07-17 09:46 | ER Document Report ---
ED General - General Chief Complaint: Seizure Stated Complaint: POSSIBLE SEIZURE Time Seen by Provider: 07/17/17 09:45 Mode of Arrival: Ambulatory Information source: Friend Notes: This patient has a long history of seizure disorder and is on several neuroleptic medications. She was begun on Lyrica 2 days ago and since then has been having increased tremors. She apparently presented to the emergency department without complaint this morning and was noted to have a brief seizure in the waiting area. When I evaluated the patient she was apparently post ictal , opened her eyes to verbal stimulus but did not speak. TRAVEL OUTSIDE OF THE [place] IN LAST 30 DAYS: No - HPI Onset: Other - 2 days Onset/Duration: Gradual Associated symptoms: Other - Brief episode of seizure-like activity in the emergency department waiting room. Similar symptoms previously: Yes Recently seen / treated by doctor: Yes - 07/15 - Related Data Allergies/Adverse Reactions: No Known Allergies Allergy (Verified 07/04/17 13:36) Past Medical History - General Information source: Patient - Social History Smoking Status: Unknown if Ever Smoked Family History: Reviewed & Not Pertinent, Other - Past Medical History Cardiac Medical History: Reports: Hx Hypertension - not current Pulmonary Medical History: Reports: Hx Pneumonia Neurological Medical History: Reports: Hx Migraine, Hx Seizures Renal/ Medical History: Denies: Hx Peritoneal Dialysis Psychiatric Medical History: Reports: Hx Bipolar Disorder, Hx Schizophrenia Past Surgical History: Reports: Hx Appendectomy, Hx Breast Surgery - bilateral lumpectomy, Hx Section - x3, Hx Tubal Ligation - Immunizations Immunizations up to date: Yes Hx Diphtheria, Pertussis, Tetanus Vaccination: Yes - 2009 Hx Pneumococcal Vaccination: 06/23/10 Review of Systems - Review of Systems -: Yes ROS unobtainable due to patient's medical condition Physical Exam - Vital signs Vitals: Temp Resp Pulse Ox 98.3 F 21 H 99 07/17/17 09:29 07/17/17 09:29 07/17/17 09:29 Interpretation: Hypertensive. No: Tachycardic, Tachypneic, Febrile - General General appearance: Appears well, Lethargic In distress: None - HEENT Head: Normocephalic Eyes: Normal Conjunctiva: Normal. No: Icteric Ears: Normal Nasal: Normal Mouth/Lips: Normal - No trauma Mucous membranes: Normal - Respiratory Respiratory status: No respiratory distress Breath sounds: Normal - Cardiovascular Rhythm: Regular Heart sounds: Normal auscultation Murmur: No - Abdominal Inspection: Normal Distension: No distension - Extremities General upper extremity: Normal inspection General lower extremity: Normal inspection - Neurological Neuro grossly intact: Yes Cognition: Normal Orientation: AAOx4 - Psychological Associated symptoms: Normal affect, Normal mood - Skin Skin Temperature: Warm Skin Moisture: Dry Skin Color: Normal Skin Turgor: Elastic Course - Vital Signs Vital signs: Temp Pulse Resp BP Pulse Ox 98.3 F 19 126/88 H 96 07/17/17 09:29 07/17/17 09:50 07/17/17 09:50 07/17/17 09:50 - Laboratory Result Diagrams: 07/17/17 09:27 07/17/17 09:27 Laboratory results interpreted by me: 07/17/17 09:27 Calcium 10.3 H - Consults DR. KING Time consulted: 10:58 Consulted provider: follow-up in office - AGREES TO SEE IN OFFICE TODAY Discharge - Discharge Clinical Impression: Seizure disorder Condition: Stable Disposition: HOME, SELF-CARE Instructions: Seizure, Known Epileptic ([facility]) Additional Instructions: GO TO DR. KING'S OFFICE NOW FOR FOLLOW-UP EVALUATION. TAKE MEDICATIONS HE RECOMMENDS.
[2017-07-17 10:14] LABS: ABSOLUTE BASOPHILS # (AUTO) 0.1 10^3/uL (0.0-0.2); ABSOLUTE EOSINOPHILS # (AUTO) 0.3 10^3/uL (0.0-0.6); ABSOLUTE LYMPHOCYTES (AUTO) 2.6 10^3/uL (0.5-4.7); ABSOLUTE MONOCYTES (AUTO) 0.6 10^3/uL (0.1-1.4); ABSOLUTE NEUT (AUTO) 3.1 10^3/uL (1.7-8.2); BASOPHILS % (AUTO) 1.1 % (0-2); EOSINOPHILS % (AUTO) 4.5 % (0-6); HEMATOCRIT 36.2 % (36.0-47.0); HEMOGLOBIN 12.3 g/dL (12.0-15.5); LYMPHOCYTES % (AUTO) 38.8 % (13-45); MEAN CORPUSCULAR HEMOGLOBIN 30.9 pg (27.0-33.4); MEAN CORPUSCULAR HGB CONC 34.1 g/dL (32.0-36.0); MEAN CORPUSCULAR VOLUME 91 fl (80-97); MONOCYTES % (AUTO) 8.7 % (3-13); PLATELET COUNT 381 10^3/uL (150-450); RED BLOOD COUNT 3.99 10^6/uL (3.72-5.28); RED CELL DISTRIBUTION WIDTH 13.9 % (11.5-14.0); SEGMENTED NEUTROPHILS % (AUTO) 46.9 % (42-78); TOTAL CELLS COUNTED % (AUTO) 100 %; WHITE BLOOD COUNT 6.6 10^3/uL (4.0-10.5)
[2017-07-17 10:20] LABS: ALANINE AMINOTRANSFERASE 10 U/L (9-52); ALBUMIN 4.8 g/dL (3.5-5.0); ALKALINE PHOSPHATASE 72 U/L (38-126); ANION GAP 14 (5-19); ASPARTATE AMINO TRANSFERASE 15 U/L (14-36); BILIRUBIN,DIRECT 0.3 mg/dL (0.0-0.4); BILIRUBIN,TOTAL 0.3 mg/dL (0.2-1.3); BLOOD UREA NITROGEN 8 mg/dL (7-20); CALCIUM 10.3 mg/dL (8.4-10.2); CARBON DIOXIDE 24 mmol/L (22-30); CHLORIDE 105 mmol/L (98-107); CREATINE KINASE 78 U/L (30-135); GLUCOSE 84 mg/dL (75-110); POTASSIUM 4.4 mmol/L (3.6-5.0); SODIUM 142.8 mmol/L (137-145); TOTAL PROTEIN 7.6 g/dL (6.3-8.2)
[2017-07-17] MEDS ORDERED: ACETAMINOPHEN 325 MG TABLET PO ONE (11:09)
[2017-07-17 11:19] VITALS: BP 136/95
== END 2017-07-17 11:42 | disposition home or self-care (01) ==
LOC: ER 09:17
DX: G40.909 Epilepsy, unspecified, not intractable, without status epilepticus (principal); Z79.899 Other long term (current) drug therapy
CPT/HCPCS: 99284; 36415; 82550; 84703; 85025; 80053; J3490

== ENCOUNTER 2017-07-27 10:11 | Emergency (ER) | payer MEDICAID ==
[2017-07-27] MEDS ORDERED: ACETAMINOPHEN 325 MG TABLET PO ONE (10:13)
--- NOTE | 2017-07-27 10:52 | ER Document Report ---
HPI - HPI Pain Level: 5 - REPRODUCTIVE Reproductive: DENIES: : <MARISA MCGEE - Last Filed: 07/27/17 10:41> Past Medical History - Social History Family History: Reviewed & Not Pertinent, Other - Past Medical History Cardiac Medical History: Reports: Hx Hypertension - not current Pulmonary Medical History: Reports: Hx Pneumonia Neurological Medical History: Reports: Hx Migraine, Hx Seizures Renal/ Medical History: Denies: Hx Peritoneal Dialysis Psychiatric Medical History: Reports: Hx Bipolar Disorder, Hx Depression, Hx Schizophrenia Past Surgical History: Reports: Hx Appendectomy, Hx Breast Surgery - bilateral lumpectomy, Hx Section - x3, Hx Tubal Ligation - Immunizations Immunizations up to date: Yes Hx Diphtheria, Pertussis, Tetanus Vaccination: Yes - 2009 Hx Pneumococcal Vaccination: 06/23/10 <MARISA MCGEE - Last Filed: 07/27/17 10:41> - Social History Smoking Status: Never Smoker <NILSA RAZA - Last Filed: 07/27/17 11:28> Vertical Provider Document - INFECTION CONTROL TRAVEL OUTSIDE OF THE [place] IN LAST 30 DAYS: No - RESPIRATORY O2 Sat by Pulse Oximetry: 90 <MARISA MCGEE - Last Filed: 07/27/17 10:41> - CONSTITUTIONAL Agree With Documented VS: No <NILSA RAZA - Last Filed: 07/27/17 11:28> Course - Vital Signs Vital signs: Temp Pulse Resp BP Pulse Ox 98.6 F 103 H 14 120/77 90 L 07/27/17 10:15 07/27/17 10:15 07/27/17 10:15 07/27/17 10:15 07/27/17 10:15 <MARISA MCGEE - Last Filed: 07/27/17 10:41> - Vital Signs Vital signs: Temp Pulse Resp BP Pulse Ox 98.6 F 103 H 14 120/77 90 L 07/27/17 10:15 07/27/17 10:15 07/27/17 10:15 07/27/17 10:15 07/27/17 10:52 <NILSA RAZA - Last Filed: 07/27/17 11:28> Discharge <MARISA MCGEE - Last Filed: 07/27/17 10:41> <NILSA RAZA - Last Filed: 07/27/17 11:28> - Discharge Clinical Impression: Contusion of rib on left side Qualifiers: Encounter type: initial encounter Qualified Code(s): S20.212A - Contusion of left front wall of thorax, initial encounter Condition: Stable Instructions: Ice Packs ([facility]), Rib Contusion ([facility]), Rib Injuries and Fractures ([facility]), Warm Packs ([facility]) Additional Instructions: Rest, Ice, Compression Use sling as directed Tylenol/ibuprofen as needed Light stretches daily Strength exercises as able Moist heat and massage may help F/u with your PCP in 3-5 days for a recheck Consider consult(s) with Orthopedics/physical therapy for ongoing/worsening symptoms Return to the ED with any worsening symptoms and/or development of fever, headache, chest pain, palpitations, syncope, shortness of breath, trouble breathing, abdominal pain, n/v/d, blood in urine/stool, muscle weakness/ paralysis, numbness/tingling, swelling, redness, or other worsening symptoms that are concerning to you. [facility] * Address: [address] [place] [address] * Referrals: [facility] [Provider Group] - Follow up as needed [facility] [Provider Group] - Follow up as needed
--- NOTE | 2017-07-27 11:13 | RADIOLOGY REPORT (SQ) ---
EXAM DESCRIPTION: RIBS LEFT W/PA CHEST COMPLETED DATE/TIME: 07/27/2017 10:49 am REASON FOR STUDY: left rib pain s/p injury COMPARISON: None. TECHNIQUE: Frontal view of the chest and additional views of the left ribs acquired. NUMBER OF VIEWS: Four view. LIMITATIONS: None. FINDINGS: FRONTAL CXR: No pneumothorax. No pleural effusion. No atelectasis or infiltrates. RIBS: No displaced rib fractures. No lytic or blastic bony lesions. OTHER: No other significant finding. IMPRESSION: NO PNEUMOTHORAX. NO DISPLACED RIB FRACTURES. COMMENT: SITE OF TRAUMA/COMPLAINT MARKED/STAMP COMPLETED: YES. TECHNICAL DOCUMENTATION: JOB ID: [id number]- All Rights Reserved
[2017-07-27 11:21] LABS: APPEARANCE,URINE CLOUDY; BILIRUBIN,URINE SMALL (NEGATIVE); COLOR,URINE AMBER; GLUCOSE, URINE NEGATIVE (NEGATIVE); KETONES,URINE NEGATIVE (NEGATIVE); LEUKOCYTE ESTERASE,URINE NEGATIVE (NEGATIVE); NITRITE,URINE NEGATIVE (NEGATIVE); PROTEIN,URINE 30 mg/dL (NEGATIVE); URINE SPECIFIC GRAVITY 1.023
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
[2017-07-27 11:39] VITALS: BP 111/86
== END 2017-07-27 11:35 | disposition home or self-care (01) ==
LOC: EEVIPCON 10:11 → ER 10:11
DX: S20.212A Contusion of left front wall of thorax, initial encounter (principal); X58.XXXA Exposure to other specified factors, initial encounter; Z98.51 Tubal ligation status
CPT/HCPCS: 99283; 81001; 71101; J3490

== ENCOUNTER 2017-07-27 20:52 | Emergency (ER) | payer MEDICAID ==
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
[2017-07-27 22:20] LABS: ALANINE AMINOTRANSFERASE 19 U/L (9-52); ALBUMIN 5.2 g/dL (3.5-5.0); ALKALINE PHOSPHATASE 90 U/L (38-126); ANION GAP 13 (5-19); ASPARTATE AMINO TRANSFERASE 18 U/L (14-36); BILIRUBIN,DIRECT 0.2 mg/dL (0.0-0.4); BILIRUBIN,TOTAL 0.4 mg/dL (0.2-1.3); BLOOD UREA NITROGEN 9 mg/dL (7-20); CALCIUM 10.1 mg/dL (8.4-10.2); CARBON DIOXIDE 25 mmol/L (22-30); CHLORIDE 103 mmol/L (98-107); GLUCOSE 88 mg/dL (75-110); POTASSIUM 3.8 mmol/L (3.6-5.0); SODIUM 141.4 mmol/L (137-145); TOTAL PROTEIN 8.3 g/dL (6.3-8.2)
[2017-07-27 22:21] LABS: ACETAMINOPHEN < 10 ug/mL (10-30); ALCOHOL < 10 mg/dL (NONE DETECTED); SALICYLATE < 1.0 mg/dL (2.0-20.0)
[2017-07-27 22:25] LABS: BILIRUBIN,URINE NEGATIVE (NEGATIVE); COLOR,URINE YELLOW; GLUCOSE, URINE NEGATIVE (NEGATIVE); KETONES,URINE 20 mg/dL (NEGATIVE); LEUKOCYTE ESTERASE,URINE NEGATIVE (NEGATIVE); NITRITE,URINE NEGATIVE (NEGATIVE); PROTEIN,URINE NEGATIVE (NEGATIVE); URINE SPECIFIC GRAVITY 1.017
[2017-07-27] MEDS ORDERED: ACETAMINOPHEN 325 MG TABLET PO ONE (22:27)
[2017-07-27] MEDS ORDERED: IBUPROFEN 800 MG TABLET PO ONE (22:27)
[2017-07-27] MEDS ORDERED: LIDOCAINE 5% (700 MG) TRANSDERMAL ADH..PATCH TP ONE (22:27)
--- NOTE | 2017-07-27 22:27 | EKG REPORT ---
SEVERITY:- ABNORMAL ECG - SINUS RHYTHM INCOMPLETE RBBB AND LAFB : Confirmed by: Aman Harrison MD 27-Jul-2017 22:27:05
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
[2017-07-27 22:38] LABS: URINE AMPHETAMINES SCREEN NEGATIVE; URINE BARBITURATES SCREEN UNCONFIRMED POSITIVE; URINE BENZODIAZEPINES SCREEN UNCONFIRMED POSITIVE; URINE COCAINE SCREEN NEGATIVE; URINE MARIJUANA (THC) SCREEN NEGATIVE; URINE METHADONE SCREEN NEGATIVE; URINE PHENCYCLIDINE SCREEN NEGATIVE
[2017-07-27 22:41] LABS: APPEARANCE,URINE HAZY
[2017-07-27 23:05] LABS: ABSOLUTE EOSINOPHILS # (AUTO) 0.1 10^3/uL (0.0-0.6); ABSOLUTE LYMPHOCYTES (AUTO) 2.9 10^3/uL (0.5-4.7); ABSOLUTE MONOCYTES (AUTO) 0.7 10^3/uL (0.1-1.4); BASOPHILS % (AUTO) 0.6 % (0-2); HEMATOCRIT 38.7 % (36.0-47.0); HEMOGLOBIN 13.3 g/dL (12.0-15.5); LYMPHOCYTES % (AUTO) 43.1 % (13-45); MEAN CORPUSCULAR HEMOGLOBIN 31.2 pg (27.0-33.4); MEAN CORPUSCULAR HGB CONC 34.5 g/dL (32.0-36.0); MEAN CORPUSCULAR VOLUME 90 fl (80-97); MONOCYTES % (AUTO) 10.5 % (3-13); PLATELET COUNT 311 10^3/uL (150-450); RED BLOOD COUNT 4.27 10^6/uL (3.72-5.28); RED CELL DISTRIBUTION WIDTH 13.7 % (11.5-14.0); SEGMENTED NEUTROPHILS % (AUTO) 43.8 % (42-78); TOTAL CELLS COUNTED % (AUTO) 100 %; WHITE BLOOD COUNT 6.8 10^3/uL (4.0-10.5)
[2017-07-28] MEDS ORDERED: ACETAMINOPHEN 325 MG TABLET PO ONE (00:15)
[2017-07-28] MEDS ORDERED: IBUPROFEN 800 MG TABLET PO ONE (00:15)
[2017-07-28] MEDS ORDERED: LIDOCAINE 5% (700 MG) TRANSDERMAL ADH..PATCH TP ONE (00:15)
[2017-07-28] MEDS ORDERED: HYDROXYZINE PAMOATE 50 MG CAPSULE PO PRN (05:54)
[2017-07-28] MEDS ORDERED: IBUPROFEN 800 MG TABLET PO PRN (05:54)
[2017-07-28] MEDS ORDERED: CYCLOBENZAPRINE HCL 10 MG TABLET PO PRN (05:54)
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
--- NOTE | 2017-07-28 09:40 | ER Document Report ---
Doctor's Note Notes: 07/28/17 09:38 Rounds: Chart reviewed and patient interviewed. Patient is well-known to me and the other staff in this emergency department for frequent visits for mental complaints. Being evaluated for suicidal thoughts this morning. Vital signs are all normal. Lab studies were all essentially normal, as well. Patient is ambulatory and in good spirits this morning. Patient appears to be medically stable for transfer or discharge. Rafia Zacarias MD
[2017-07-28 09:58] VITALS: BP 128/79
[2017-07-28] MEDS ORDERED: GLYBURIDE 5 MG TABLET PO SCH (10:00)
[2017-07-28] MEDS ORDERED: BENZTROPINE MESYLATE 1 MG TABLET PO SCH (10:00)
[2017-07-28] MEDS ORDERED: LURASIDONE HCL 40 MG TABLET PO SCH ×2 (10:00→22:00)
[2017-07-28] MEDS ORDERED: PAROXETINE HCL 20 MG TABLET PO SCH (10:00)
[2017-07-28] MEDS ORDERED: LAMOTRIGINE 100 MG TABLET PO SCH (10:00)
[2017-07-28] MEDS ORDERED: QUETIAPINE FUMARATE 100 MG TABLET PO SCH (22:00)
[2017-07-28] MEDS ORDERED: (PENDING PHARMACY ID) (Prazosin Hcl [Prazosin Hcl] 5 MG) PO SCH (22:00)
== END 2017-07-28 09:57 | disposition home or self-care (01) ==
LOC: ER 20:52 → EEVIPCON 20:52 → ER 22:16
DX: S20.212A Contusion of left front wall of thorax, initial encounter (principal); F33.1 Major depressive disorder, recurrent, moderate; R07.81 Pleurodynia; R45.851 Suicidal ideations; G40.909 Epilepsy, unspecified, not intractable, without status epilepticus; F25.9 Schizoaffective disorder, unspecified; Z59.0 Homelessness; Z79.899 Other long term (current) drug therapy; X58.XXXA Exposure to other specified factors, initial encounter
CPT/HCPCS: 93005; 99285; 36415; 80307 ×4; 84703; 85025; 80053; 81001; 93010; J3490 ×7

== ENCOUNTER 2017-08-15 22:21 | Emergency (ER) | payer MEDICAID ==
[2017-08-15] MEDS ORDERED: LEVETIRACETAM 500 MG/NACL-ISO 500 MG/100 ML RTUPB IV ONE (22:34)
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
[2017-08-15 23:48] LABS: ABSOLUTE EOSINOPHILS # (AUTO) 0.2 10^3/uL (0.0-0.6); ABSOLUTE LYMPHOCYTES (AUTO) 2.7 10^3/uL (0.5-4.7); ABSOLUTE MONOCYTES (AUTO) 0.5 10^3/uL (0.1-1.4); BASOPHILS % (AUTO) 0.4 % (0-2); EOSINOPHILS % (AUTO) 3.8 % (0-6); HEMATOCRIT 34.4 % (36.0-47.0); HEMOGLOBIN 11.9 g/dL (12.0-15.5); LYMPHOCYTES % (AUTO) 49.4 % (13-45); MEAN CORPUSCULAR HEMOGLOBIN 31.4 pg (27.0-33.4); MEAN CORPUSCULAR HGB CONC 34.7 g/dL (32.0-36.0); MEAN CORPUSCULAR VOLUME 91 fl (80-97); MONOCYTES % (AUTO) 9.9 % (3-13); PLATELET COUNT 299 10^3/uL (150-450); RED CELL DISTRIBUTION WIDTH 14.1 % (11.5-14.0); SEGMENTED NEUTROPHILS % (AUTO) 36.5 % (42-78); TOTAL CELLS COUNTED % (AUTO) 100 %; WHITE BLOOD COUNT 5.5 10^3/uL (4.0-10.5)
--- NOTE | 2017-08-16 00:01 | RADIOLOGY REPORT (SQ) ---
EXAM DESCRIPTION: CT HEAD WITHOUT COMPLETED DATE/TIME: 08/15/2017 11:51 pm REASON FOR STUDY: headache, stuttered speech COMPARISON: 07/20/2017 TECHNIQUE: Axial images acquired through the brain without intravenous contrast. Images reviewed wi th bone, brain and subdural windows. Images stored on PACS. All CT scanners at this facility use dose modulation, iterative reconstruction, and/or weight based d osing when appropriate to reduce radiation dose to as low as reasonably achievable (ALARA). [facility]: Dose Right [facility]: CareDose [facility]: Dose Right [facility]: Teradose 4D [facility]: Streamup RADIATION DOSE: CT Rad equipment meets quality standard of care and radiation dose reduction techniq ues were employed. CTDIvol: 64.6 mGy. DLP: 1292 mGy-cm. mGy. LIMITATIONS: None. FINDINGS: VENTRICLES: Normal size and contour. CEREBRUM: No masses. No hemorrhage. No midline shift. No evidence for acute infarction. Normal gra y/white matter differentiation. No areas of low density in the white matter. CEREBELLUM: No masses. No hemorrhage. No alteration of density. No evidence for acute infarction. EXTRAAXIAL SPACES: No fluid collections. No masses. ORBITS AND GLOBE: No intra- or extraconal masses. Normal contour of globe without masses. CALVARIUM: No fracture. PARANASAL SINUSES: No fluid or mucosal thickening. SOFT TISSUES: No mass or hematoma. OTHER: No other significant finding. IMPRESSION: NORMAL BRAIN CT WITHOUT CONTRAST. EVIDENCE OF ACUTE STROKE: NO. COMMENT: Quality ID # [id number]: Final reports with documentation of one or more dose reduction techniques (e.g., Automated exposure control, adjustment of the mA and/or kV according to patient size, use of iterative reconstruction technique) TECHNICAL DOCUMENTATION: JOB ID: [id number] [employer]- All Rights Reserved Reading location - IP/workstation name: [email or web address]
[2017-08-16 00:05] LABS: ANION GAP 9 (5-19); BLOOD UREA NITROGEN 5 mg/dL (7-20); CALCIUM 9.3 mg/dL (8.4-10.2); CARBON DIOXIDE 26 mmol/L (22-30); CHLORIDE 109 mmol/L (98-107); GLUCOSE 88 mg/dL (75-110); POTASSIUM 3.5 mmol/L (3.6-5.0)
[2017-08-16] MEDS ORDERED: METOCLOPRAMIDE HCL INJ/PF 10 MG/2 ML SDV IV ONE (00:51)
[2017-08-16] MEDS ORDERED: KETOROLAC TROMETHAMINE INJ/PF 30 MG/1 ML SDV IV ONE (00:51)
[2017-08-16] MEDS ORDERED: DIPHENHYDRAMINE HCL 50 MG/ML VIAL IV ONE (00:51)
[2017-08-16 00:54] LABS: APPEARANCE,URINE CLEAR; BILIRUBIN,URINE NEGATIVE (NEGATIVE); COLOR,URINE STRAW; GLUCOSE, URINE NEGATIVE (NEGATIVE); KETONES,URINE NEGATIVE (NEGATIVE); LEUKOCYTE ESTERASE,URINE NEGATIVE (NEGATIVE); NITRITE,URINE NEGATIVE (NEGATIVE); PROTEIN,URINE NEGATIVE (NEGATIVE); URINE SPECIFIC GRAVITY 1.002; UROBILINOGEN,URINE NEGATIVE mg/dL (<2.0)
[2017-08-16] MEDS ORDERED: FENTANYL CITRATE INJ/PF 100 MCG/2 ML AMPUL IV ONE (02:38)
[2017-08-16 10:56] VITALS: BP 97/72
== END 2017-08-16 10:56 | disposition home or self-care (01) ==
LOC: ER 22:21
DX: R56.9 Unspecified convulsions (principal); R51 Headache; Z79.899 Other long term (current) drug therapy
CPT/HCPCS: 99284; 36415; 83735; 85025; 80048; 81001; 70450; J1200; J3010; J1885; J2765; J1953

== ENCOUNTER 2017-08-31 19:28 | Emergency (ER) | payer MEDICAID ==
[2017-08-31] MEDS ORDERED: HYDROCODONE/ACETAMINOPHEN 5-325 MG TABLET PO ONE (21:55)
[2017-08-31] MEDS ORDERED: LIDOCAINE 2% VISCOUS SOLN 20 ML UDCUP PO ONE (21:55)
[2017-08-31] MEDS ORDERED: PENICILLIN V POTASSIUM 500 MG TABLET PO ONE (21:55)
--- NOTE | 2017-08-31 21:58 | ER Document Report ---
ED Oral Problem - General Chief Complaint: Toothache Stated Complaint: TOOTH PAIN Time Seen by Provider: 08/31/17 21:48 Mode of Arrival: Ambulatory Information source: Patient Notes: 87-year-old female presented ED for complaint of dental pain to tooth #31 and 27 that started yesterday became much worse today. Patient states she has not seen a doctor or dentist in a while. TRAVEL OUTSIDE OF THE [place].S[place] IN LAST 30 DAYS: No - HPI Patient complains to provider of: Toothache Onset: Yesterday Onset: Gradual Quality of pain: Sharp, Throbbing Severity: Severe Pain Level: 5 Associated symptoms: Toothache Worsened by: Cold Relieved by: Nothing Similar symptoms previously: Yes Recently seen / treated by doctor/dentist: No - Related Data Allergies/Adverse Reactions: No Known Allergies Allergy (Verified 08/16/17 07:51) Past Medical History - General Information source: Patient - Social History Smoking Status: Former Smoker Cigarette use (# per day): No Chew tobacco use (# tins/day): No Smoking Education Provided: No Frequency of alcohol use: None Drug Abuse: None Lives with: Other - [facility] long term Family History: Reviewed & Not Pertinent, Other Patient has suicidal ideation: No Patient has homicidal ideation: No - Past Medical History Cardiac Medical History: Reports: Hx Hypertension - not current Pulmonary Medical History: Reports: Hx Pneumonia Neurological Medical History: Reports: Hx Migraine, Hx Seizures Endocrine Medical History: Reports: None Renal/ Medical History: Reports: None Malignancy Medical History: Reports: None GI Medical History: Reports: None Musculoskeltal Medical History: Reports None Skin Medical History: Reports None Psychiatric Medical History: Reports: Hx Bipolar Disorder, Hx Depression, Hx Schizophrenia Traumatic Medical History: Reports: None Infectious Medical History: Reports: None Past Surgical History: Reports: Hx Appendectomy, Hx Breast Surgery - bilateral lumpectomy, Hx Section - x3, Hx Tubal Ligation - Immunizations Immunizations up to date: Yes Hx Diphtheria, Pertussis, Tetanus Vaccination: Yes - 2009 Hx Pneumococcal Vaccination: 06/23/10 Review of Systems - Review of Systems Constitutional: No symptoms reported EENT: Dental problem Cardiovascular: No symptoms reported Respiratory: No symptoms reported Gastrointestinal: No symptoms reported Genitourinary: No symptoms reported Female Genitourinary: No symptoms reported Musculoskeletal: No symptoms reported Skin: No symptoms reported Hematologic/Lymphatic: No symptoms reported Neurological/Psychological: No symptoms reported Physical Exam - Vital signs Vitals: Temp Pulse Resp BP Pulse Ox 98.7 F 80 12 111/80 99 08/31/17 20:07 08/31/17 20:07 08/31/17 20:07 08/31/17 20:07 08/31/17 20:07 Interpretation: Normal - General General appearance: Appears well, Alert - HEENT Head: Normocephalic, Atraumatic Eyes: Normal Pupils: PERRL Ears: Normal External canal: Normal Tympanic membrane: Normal Sinus: Normal, Swelling Mouth/Lips: Caries Teeth diagram: 1 - Very decayed tooth with minimal redness around the tooth 2 - Very decayed tooth with redness around the tooth patient has multiple cavities throughout her mouth with most of her teeth missing. - Respiratory Respiratory status: No respiratory distress Chest status: Nontender Breath sounds: Normal Chest palpation: Normal - Cardiovascular Rhythm: Regular Heart sounds: Normal auscultation Murmur: No - Abdominal Inspection: Normal Distension: No distension Bowel sounds: Normal Tenderness: Nontender Organomegaly: No organomegaly - Back Back: Normal, Nontender - Extremities General upper extremity: Normal inspection, Nontender, Normal color, Normal ROM , Normal temperature General lower extremity: Normal inspection, Nontender, Normal color, Normal ROM , Normal temperature, Normal weight bearing. No: Valarie's sign - Neurological Neuro grossly intact: Yes Cognition: Normal Orientation: AAOx4 [place] Coma Scale Eye Opening: Spontaneous [place] Coma Scale Verbal: Oriented [place] Coma Scale Motor: Obeys Commands Clarisa Coma Scale Total: 15 Speech: Normal Motor strength normal: LUE, RUE, LLE, RLE Sensory: Normal - Psychological Associated symptoms: Normal affect, Normal mood - Skin Skin Temperature: Warm Skin Moisture: Dry Skin Color: Normal Course - Re-evaluation Re-evalutation: 09/01/17 02:16 Patient was treated with one [place] and penicillin VK with a syringe of viscous lidocaine jelly for her dental pain. She was discharged home with a prescription for Pen-Vee K and instructed to follow-up with the dentist as soon as possible. - Vital Signs Vital signs: Temp Pulse Resp BP Pulse Ox 98.7 F 79 12 118/86 H 98 08/31/17 20:07 08/31/17 22:12 08/31/17 20:07 08/31/17 22:12 08/31/17 22:12 Discharge - Discharge Clinical Impression: Pain due to dental caries Condition: Stable Disposition: HOME, SELF-CARE Additional Instructions: TOOTHACHE: Your pain is due to dental decay. The tooth must be repaired in order for you to feel better. You will, therefore, be referred to a dentist. We do not have dentists on the staff at [facility]. Severe swelling or drainage around a tooth usually means a dental abscess. This also requires evaluation and treatment by the dentist, but antibiotics may be prescribed while awaiting dental treatment. You should be rechecked immediately if you develop major swelling of the face, increasing pain, a lump in the jaw or gums, headache, difficulty swallowing, or fever. ORAL NARCOTIC MEDICATION: You have been given a norco for pain control. This medication is a narcotic. It's best taken with food, as nausea can result if taken on an empty stomach. Don't operate machinery or drive within six hours of taking this medication. Do not combine this medicine with alcohol, or with any medication which can cause sedation (such as cold tablets or sleeping pills) unless you get permission from the physician. Narcotics tend to cause constipation. If possible, drink plenty of fluids and eat a diet high in fiber and fruits. Please be aware that prescription narcotics also have the potential for abuse. People become addicted to these medications because of the general sense of wellbeing that they induce. This feeling along with a significant reduction in tension, anxiety, and aggression provides a stimulating seductive quality to these drugs. Once your pain is under control, we encourage you to discard your unused narcotics. PENICILLIN V K: You have been given a prescription for Penicillin VK. Your physician has determined that this is the best antibiotic for your condition. Pen VK can be taken with meals, however more of the antibiotic gets into the bloodstream if it's taken on an empty stomach. Penicillin usually has no side effects. However, allergy to penicillins is common. If you have had an allergic reaction to any drug of the penicillin family, you should never take any other penicillin. Notify your doctor at once if you develop hives, itching, swelling, faintness, or shortness of breath. Use the viscous lidocaine you have been provided with one your tooth every 2-3 hours as needed for pain. FOLLOW-UP CARE: You have been referred for follow-up care to the dentists listed below. Call the dentists office for an appointment as you were instructed or within the next two days. If you experience worsening or a significant change in your symptoms, notify the physician immediately or return to the Emergency Department at any time for re-evaluation. [facility] [address] [place], [place] [phone] [facility] [address] [place] [address] [facility] [address] [facility] [address] [facility] (4th) [facility] [address] [facility] [email or web address] [facility] [address] [place] [address] Friday- 8:00am to 5:00 pm Will see patients from other [facility]. Charges based on income and family size and accepts Medicare, Medicaid, and Insurances Will pull molars [facility] [id number] Hours of Operation 8:00 am - 4:30 pm weekdays The following dental offices accept Medicaid: [facility] Dr. Hernandez Dr. Mukherjee Dr. [place] Dr. Rodrigez Judah Swanson L[place]avage, and Anjali oral surgery Dr. Pepper ([place]) Dr. Merida ([place]) [facility] Drs. Garcia ([place]) Dr. Rutherford ([place]) [facility] Dr. Gan ([place]) Drs. Luke and ([place]) Medicaid Care Line Prescriptions: Penicillin V Potassium [Penicillin Vk 500 mg Tablet] 500 mg PO BID #20 tablet
[2017-08-31 22:26] VITALS: BP 118/86
== END 2017-08-31 22:26 | disposition home or self-care (01) ==
LOC: ER 19:28
DX: K02.9 Dental caries, unspecified (principal)
CPT/HCPCS: 99282; J3490 ×2

== ENCOUNTER 2017-09-08 20:42 | Emergency (ER) | payer MEDICAID ==
[2017-09-09] MEDS ORDERED: NYSTATIN/DEXAMETH/DIPHEN SUSP 120 ML PO ONE (00:44)
[2017-09-09] MEDS ORDERED: MORPHINE SULFATE IR 15 MG TABLET PO ONE (00:45)
[2017-09-09] MEDS ORDERED: ACETAMINOPHEN 325 MG TABLET PO ONE (00:46)
[2017-09-09] MEDS ORDERED: IBUPROFEN 600 MG TABLET PO ONE (00:46)
--- NOTE | 2017-09-09 00:47 | ER Document Report ---
ED General - General Chief Complaint: Mouth Problem Stated Complaint: POSSIBLE ABSCESS Time Seen by Provider: 09/08/17 23:37 Notes: Patient is a 37-year-old female without past medical history who presents with 1 week of ulcerative lesions to her right tongue and right buccal mucosa. She states that these areas are a severe, burning, stabbing pain that is worsened by talking, eating and drinking. She denies a history of similar symptoms in the past. She has been trying Tylenol and ibuprofen without improvement of her pain. She is here requesting pain control. She has not seen her primary care doctor about today's symptoms. TRAVEL OUTSIDE OF THE [place] IN LAST 30 DAYS: No - Related Data Allergies/Adverse Reactions: No Known Allergies Allergy (Verified 08/16/17 07:51) Past Medical History - General Information source: Patient - Social History Smoking Status: Former Smoker Chew tobacco use (# tins/day): No Frequency of alcohol use: None Drug Abuse: None Lives with: Family Family History: Reviewed & Not Pertinent, Other Patient has suicidal ideation: No Patient has homicidal ideation: No - Past Medical History Cardiac Medical History: Reports: Hx Hypertension - not current Pulmonary Medical History: Reports: Hx Pneumonia Neurological Medical History: Reports: Hx Migraine, Hx Seizures Renal/ Medical History: Denies: Hx Peritoneal Dialysis Psychiatric Medical History: Reports: Hx Bipolar Disorder, Hx Depression, Hx Schizophrenia Past Surgical History: Reports: Hx Appendectomy, Hx Breast Surgery - bilateral lumpectomy, Hx Section - x3, Hx Tubal Ligation - Immunizations Immunizations up to date: Yes Hx Diphtheria, Pertussis, Tetanus Vaccination: Yes - 2009 Hx Pneumococcal Vaccination: 06/23/10 Review of Systems - Review of Systems Notes: Constitutional: Negative for fever. HENT: Negative for sore throat. Eyes: Negative for visual changes. Cardiovascular: Negative for chest pain. Respiratory: Negative for shortness of breath. Gastrointestinal: Negative for abdominal pain, vomiting or diarrhea. Genitourinary: Negative for dysuria. Musculoskeletal: Negative for back pain. Skin: Negative for rash. Neurological: Negative for headaches, weakness or numbness. 10 point ROS negative except as marked above and in HPI. Physical Exam - Vital signs Vitals: Pulse BP Pulse Ox 86 126/90 H 100 09/08/17 21:27 09/08/17 21:27 03/19/18 21:27 Interpretation: Normal Notes: PHYSICAL EXAMINATION: GENERAL: Well-appearing, well-nourished and in no acute distress. HEAD: Atraumatic, normocephalic. EYES: Pupils equal round and reactive to light, extraocular movements intact, sclera anicteric, conjunctiva are normal. ENT: nares patent, or ulcerative lesions to the right middle tongue and the right buccal mucosa. Uvula is midline. No tonsillar hypertrophy. No tonsillar exudates. NECK: Normal range of motion, supple without lymphadenopathy LUNGS: Breath sounds clear to auscultation bilaterally and equal. No wheezes rales or rhonchi. HEART: Regular rate and rhythm without murmurs ABDOMEN: Soft, nontender, normoactive bowel sounds. No guarding, no rebound. No masses appreciated. EXTREMITIES: Normal range of motion, no pitting or edema. No cyanosis. NEUROLOGICAL: No focal neurological deficits. Moves all extremities spontaneously and on command. PSYCH: Normal mood, normal affect. SKIN: Warm, Dry, normal turgor, no rashes or lesions noted. Course - Re-evaluation Re-evalutation: 09/09/17 00:44 Patient presents with multiple aphthous ulcers of the mouth and tongue. I will prescribe her Magic mouthwash and of recommended avoidance of trigger foods. Airway is patent, no evidence of a more concerning pathology such as a peritonsillar abscess, Arthur angina, no clinical history to suggest a soft tissue deep space infection. Vitals are within normal limits. At this time will discharge with return precautions and follow-up recommendations. Verbal discharge instructions given a the bedside and opportunity for questions given. Medication warnings reviewed. Patient is in agreement with this plan and has verbalized understanding of return precautions and the need for primary care follow-up in the next 24-72 hours. - Vital Signs Vital signs: Temp Pulse Resp BP Pulse Ox 98.7 F 78 16 124/87 H 96 09/09/17 00:54 09/09/17 00:54 09/09/17 00:54 09/09/17 00:54 09/09/17 00:54 Discharge - Discharge Clinical Impression: Aphthous ulcer Condition: Good Disposition: HOME, SELF-CARE Additional Instructions: Use the Magic mouthwash as prescribed for pain. Your symptoms should resolve within the next 1 week. Avoid acidic foods, spicy foods, and try to avoid touching the area. Return for any additional concerns you may have. Prescriptions: Nystatin/Dexameth/Diphen [Magic Mouthwash ([facility] Formula) Susp] 5 ml PO QID #120 ml Referrals: LIONEL GARCIA MD [Primary Care Provider] - Follow up as needed
[2017-09-09 00:56] VITALS: BP 124/87
== END 2017-09-09 01:07 | disposition home or self-care (01) ==
LOC: EEVIPCON 20:42 → ER 20:42
DX: K12.0 Recurrent oral aphthae (principal); I10 Essential (primary) hypertension; Z87.891 Personal history of nicotine dependence
CPT/HCPCS: 99282; J3490 ×2

== ENCOUNTER 2017-10-18 20:00 | Emergency (ER) | payer MEDICAID ==
[2017-10-18 21:39] LABS: ABSOLUTE EOSINOPHILS # (AUTO) 0.2 10^3/uL (0.0-0.6); ABSOLUTE LYMPHOCYTES (AUTO) 2.9 10^3/uL (0.5-4.7); ABSOLUTE MONOCYTES (AUTO) 0.6 10^3/uL (0.1-1.4); ABSOLUTE NEUT (AUTO) 2.9 10^3/uL (1.7-8.2); BASOPHILS % (AUTO) 0.6 % (0-2); EOSINOPHILS % (AUTO) 3.5 % (0-6); HEMATOCRIT 35.5 % (36.0-47.0); HEMOGLOBIN 12.2 g/dL (12.0-15.5); LYMPHOCYTES % (AUTO) 43.4 % (13-45); MEAN CORPUSCULAR HEMOGLOBIN 31.9 pg (27.0-33.4); MEAN CORPUSCULAR HGB CONC 34.4 g/dL (32.0-36.0); MEAN CORPUSCULAR VOLUME 93 fl (80-97); MONOCYTES % (AUTO) 8.3 % (3-13); PLATELET COUNT 268 10^3/uL (150-450); RED BLOOD COUNT 3.83 10^6/uL (3.72-5.28); RED CELL DISTRIBUTION WIDTH 14.7 % (11.5-14.0); SEGMENTED NEUTROPHILS % (AUTO) 44.2 % (42-78); TOTAL CELLS COUNTED % (AUTO) 100 %; WHITE BLOOD COUNT 6.7 10^3/uL (4.0-10.5)
--- NOTE | 2017-10-18 21:41 | RADIOLOGY REPORT (SQ) ---
EXAM DESCRIPTION: CT HEAD WITHOUT COMPLETED DATE/TIME: 10/18/2017 9:23 pm REASON FOR STUDY: ADAMS/HX SEUZIRES, R/O STROKE COMPARISON: 09/29/2017 TECHNIQUE: Axial images acquired through the brain without intravenous contrast. Images reviewed wi th bone, brain and subdural windows. Images stored on PACS. All CT scanners at this facility use dose modulation, iterative reconstruction, and/or weight based d osing when appropriate to reduce radiation dose to as low as reasonably achievable (ALARA). [facility]: Dose Right [facility]: CareDose [facility]: Dose Right [facility]: Teradose 4D [facility]: Smart Boastify RADIATION DOSE: CT Rad equipment meets quality standard of care and radiation dose reduction techniq ues were employed. CTDIvol: 53.2 mGy. DLP: 1070 mGy-cm. mGy. LIMITATIONS: None. FINDINGS: VENTRICLES: Normal size and contour. CEREBRUM: No masses. No hemorrhage. No midline shift. No evidence for acute infarction. Normal gra y/white matter differentiation. No areas of low density in the white matter. CEREBELLUM: No masses. No hemorrhage. No alteration of density. No evidence for acute infarction. EXTRAAXIAL SPACES: No fluid collections. No masses. ORBITS AND GLOBE: No intra- or extraconal masses. Normal contour of globe without masses. CALVARIUM: No fracture. PARANASAL SINUSES: No fluid or mucosal thickening. SOFT TISSUES: No mass or hematoma. OTHER: No other significant finding. IMPRESSION: No acute intracranial findings. EVIDENCE OF ACUTE STROKE: NO. COMMENT: Quality ID # [id number]: Final reports with documentation of one or more dose reduction techniques (e.g., Automated exposure control, adjustment of the mA and/or kV according to patient size, use of iterative reconstruction technique) TECHNICAL DOCUMENTATION: JOB ID: [id number] [place]-72 2010 [employer]- All Rights Reserved Reading location - IP/workstation name: SmartMove
[2017-10-18 21:46] LABS: APPEARANCE,URINE CLOUDY; BILIRUBIN,URINE NEGATIVE (NEGATIVE); COLOR,URINE YELLOW; GLUCOSE, URINE NEGATIVE (NEGATIVE); KETONES,URINE NEGATIVE (NEGATIVE); LEUKOCYTE ESTERASE,URINE NEGATIVE (NEGATIVE); NITRITE,URINE NEGATIVE (NEGATIVE); PROTEIN,URINE NEGATIVE (NEGATIVE); URINE SPECIFIC GRAVITY 1.016
[2017-10-18 21:48] LABS: ALANINE AMINOTRANSFERASE 15 U/L (9-52); ALBUMIN 4.2 g/dL (3.5-5.0); ALKALINE PHOSPHATASE 72 U/L (38-126); ANION GAP 15 (5-19); ASPARTATE AMINO TRANSFERASE 17 U/L (14-36); BILIRUBIN,DIRECT 0.2 mg/dL (0.0-0.4); BILIRUBIN,TOTAL 0.2 mg/dL (0.2-1.3); BLOOD UREA NITROGEN 9 mg/dL (7-20); CALCIUM 9.6 mg/dL (8.4-10.2); CARBON DIOXIDE 24 mmol/L (22-30); CHLORIDE 107 mmol/L (98-107); GLUCOSE 97 mg/dL (75-110); POTASSIUM 3.4 mmol/L (3.6-5.0); SODIUM 146.4 mmol/L (137-145); TOTAL PROTEIN 7.1 g/dL (6.3-8.2)
[2017-10-18 21:49] LABS: ALCOHOL < 10 mg/dL (NONE DETECTED)
[2017-10-18 21:55] LABS: URINE AMPHETAMINES SCREEN NEGATIVE; URINE BARBITURATES SCREEN UNCONFIRMED POSITIVE; URINE BENZODIAZEPINES SCREEN NEGATIVE; URINE COCAINE SCREEN NEGATIVE; URINE MARIJUANA (THC) SCREEN NEGATIVE; URINE METHADONE SCREEN NEGATIVE; URINE PHENCYCLIDINE SCREEN NEGATIVE
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
[2017-10-19 04:59] VITALS: BP 111/75
== END 2017-10-19 04:59 | disposition home or self-care (01) ==
LOC: ER 20:00
DX: T42.6X1A Poisoning by other antiepileptic and sedative-hypnotic drugs, accidental (unintentional), initial encounter (principal); T43.591A Poisoning by other antipsychotics and neuroleptics, accidental (unintentional), initial encounter; T43.221A Poisoning by selective serotonin reuptake inhibitors, accidental (unintentional), initial encounter; T44.3X1A Poisoning by other parasympatholytics [anticholinergics and antimuscarinics] and spasmolytics, accidental (unintentional), initial encounter; R53.1 Weakness; R53.83 Other fatigue; R40.0 Somnolence; F20.9 Schizophrenia, unspecified; F31.9 Bipolar disorder, unspecified; Z79.899 Other long term (current) drug therapy; I10 Essential (primary) hypertension
CPT/HCPCS: 36415; 70450; 80053; 80307; 81001; 83735; 84703; 85025; 99285

== ENCOUNTER 2017-11-04 02:34 | Emergency (ER) | payer MEDICAID ==
[2017-11-04] MEDS ORDERED: LORAZEPAM 1 MG TABLET PO ONE (03:48)
[2017-11-04] MEDS ORDERED: DIPHENHYDRAMINE HCL 50 MG CAPSULE PO ONE (03:48)
[2017-11-04] MEDS ORDERED: HALOPERIDOL 5 MG TABLET PO ONE (03:48)
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
[2017-11-04 04:36] LABS: ABSOLUTE EOSINOPHILS # (AUTO) 0.1 10^3/uL (0.0-0.6); ABSOLUTE LYMPHOCYTES (AUTO) 1.2 10^3/uL (0.5-4.7); ABSOLUTE MONOCYTES (AUTO) 0.5 10^3/uL (0.1-1.4); ABSOLUTE NEUT (AUTO) 6.1 10^3/uL (1.7-8.2); BASOPHILS % (AUTO) 0.4 % (0-2); EOSINOPHILS % (AUTO) 0.7 % (0-6); HEMATOCRIT 35.6 % (36.0-47.0); HEMOGLOBIN 11.9 g/dL (12.0-15.5); MEAN CORPUSCULAR HEMOGLOBIN 30.9 pg (27.0-33.4); MEAN CORPUSCULAR HGB CONC 33.4 g/dL (32.0-36.0); MEAN CORPUSCULAR VOLUME 93 fl (80-97); MONOCYTES % (AUTO) 5.8 % (3-13); PLATELET COUNT 270 10^3/uL (150-450); RED BLOOD COUNT 3.84 10^6/uL (3.72-5.28); RED CELL DISTRIBUTION WIDTH 14.8 % (11.5-14.0); SEGMENTED NEUTROPHILS % (AUTO) 78.1 % (42-78); TOTAL CELLS COUNTED % (AUTO) 100 %; WHITE BLOOD COUNT 7.8 10^3/uL (4.0-10.5)
[2017-11-04 04:43] LABS: APPEARANCE,URINE CLOUDY; BILIRUBIN,URINE SMALL (NEGATIVE); COLOR,URINE AMBER; GLUCOSE, URINE NEGATIVE (NEGATIVE); KETONES,URINE 20 mg/dL (NEGATIVE); LEUKOCYTE ESTERASE,URINE NEGATIVE (NEGATIVE); NITRITE,URINE NEGATIVE (NEGATIVE); PROTEIN,URINE 30 mg/dL (NEGATIVE); URINE SPECIFIC GRAVITY 1.026
[2017-11-04 04:44] LABS: ALANINE AMINOTRANSFERASE 24 U/L (9-52); ALBUMIN 4.6 g/dL (3.5-5.0); ALKALINE PHOSPHATASE 82 U/L (38-126); ANION GAP 14 (5-19); ASPARTATE AMINO TRANSFERASE 22 U/L (14-36); BILIRUBIN,DIRECT 0.4 mg/dL (0.0-0.4); BILIRUBIN,TOTAL 0.5 mg/dL (0.2-1.3); BLOOD UREA NITROGEN 15 mg/dL (7-20); CARBON DIOXIDE 25 mmol/L (22-30); CHLORIDE 105 mmol/L (98-107); GLUCOSE 90 mg/dL (75-110); POTASSIUM 3.7 mmol/L (3.6-5.0); SODIUM 144.2 mmol/L (137-145); TOTAL PROTEIN 7.4 g/dL (6.3-8.2)
[2017-11-04 04:53] LABS: ACETAMINOPHEN < 10 ug/mL (10-30); ALCOHOL < 10 mg/dL (NONE DETECTED); SALICYLATE < 1.0 mg/dL (2.0-20.0)
[2017-11-04 04:54] LABS: URINE AMPHETAMINES SCREEN NEGATIVE; URINE BENZODIAZEPINES SCREEN NEGATIVE; URINE COCAINE SCREEN NEGATIVE; URINE MARIJUANA (THC) SCREEN NEGATIVE; URINE METHADONE SCREEN NEGATIVE; URINE PHENCYCLIDINE SCREEN NEGATIVE
[2017-11-04 05:04] LABS: URINE BARBITURATES SCREEN NEGATIVE
--- NOTE | 2017-11-04 08:54 | EKG REPORT ---
SEVERITY:- ABNORMAL ECG - SINUS TACHYCARDIA NONSPECIFIC IVCD WITH LAD : Confirmed by: Maine Fraire 04-Nov-2017 08:54:11
--- NOTE | 2017-11-04 10:08 | ER Document Report ---
Doctor's Note Notes: 11/04/17 10:07 As the rounding physician for our psychiatric patients, I have reviewed the chart, vitals, lab work. Patient has been examined and noted to be medically stable . I am awaiting mental health in put.
--- NOTE | 2017-11-04 10:40 | PSYCHOLOGICAL NOTE ---
Psych Note - Psych Note Psych Note: Reason for evaluation: Manic/IVC Contact Permissions: Patient's sister Jaclyn Hill ( patient could not remember her phone number) Eval: [id number] Final Disposition 0910 Patient is a 37-year-old female. Patient reports that she walked to the hospital from her home so that she could get a mental health evaluation. Patient reports that she still has act team with [facility]. Patient reports that her diagnosis is bipolar disorder with schizoaffective. Patient reports that her social support system is her family to include her sister Jaclyn but at this time she cannot remember her number. Patient reports that she told hospital staff that she does not do drugs. Patient reports that she also does individual therapy with [facility]. Patient reports that last night was the last time she had dose of her medications. Patient reports her pharmacy is [facility]. Patient reports that she is able to sleep through the night. Patient reports that she does not have any suicidal ideation. Patient reports that the last time she went inpatient psychiatric was at [facility] but does not remember how long ago that was. Patient reports that she does not know why she cannot remember a lot of things. Patient reports at this time she cannot name all of her medications. Clinician Left voicemail for patient's ACCT team benefits consulting analyst at [phone] Ext [phone] ; receiving and processing supervisor stated they were currently in a meeting 11/04/2017 10:39 am Medication recommendation made by [facility] contracted psychiatric provider Dr. Teresa BACK includes: 1. Please begin Zyprexa 5 mg IM once as needed for agitation Diagnosis: Per Hx ( Chart review) 311 (F32.9) Unspecified Depressive Disorder Per Hx ( Patient report) 295.70 (F25.0) Schizoaffective Disorder, Bipolar type, by patient report Impression/Plan: Recommendation to rescind involuntary commitment due to patient not meeting criteria [place] GS 122C. Patient is psychiatrically cleared for discharge; patient denied SI/HI and is not currently experiencing psychosis. Clinician observed patient was previously seen in the emergency department July 2017 for similar etiology. Clinician observed patient previously presented differently to staff members ( regarding erratic behavior, and responding to internal stimuli) and clinician during the first assessment, however when clinician returned to obtain additional information and disclosed plans to discharge began to present with congruent affect/mood and was able to respond appropriately to assessment questions. Per patient report clinician observed patient is currently still active with [facility] and individual therapy at [facility]. Patient also has visited her medication management provider regularly since her previous visit and has been taking her psychiatric medications as prescribed, thus we are recommending any medication adjustments be made by the patient's clinical home. Mental health to coordinate follow-up with patient's ACCT team at [facility]. Attending physician in agreement with plan and disposition. Consulted with Dr. Bhatt regarding the management and care of patient.
[2017-11-04 13:29] VITALS: BP 115/77
== END 2017-11-04 14:19 | disposition home or self-care (01) ==
LOC: ER 02:34
DX: F31.2 Bipolar disorder, current episode manic severe with psychotic features (principal); F20.9 Schizophrenia, unspecified; Z98.51 Tubal ligation status
CPT/HCPCS: 93005; 99285; 36415; 80307 ×4; 84703; 85025; 80053; 81001; 93010; J3490 ×2

== ENCOUNTER 2017-11-16 09:12 | Emergency (ER) | payer MEDICAID, OTHER ==
[2017-11-16 09:19] VITALS: BP 116/84
--- NOTE | 2017-11-16 09:19 | ER Document Report ---
HPI - HPI Patient complains to provider of: cyst on left foot Onset: This morning Onset/Duration: Sudden Pain Level: 5 Context: 37-year-old female woke up this morning with a large fluid-filled blister lateral left midfoot. No injury. Was not bitten by anything that she knows of. No known allergies. No history of MRSA or herpes simplex virus. Associated Symptoms: None Exacerbated by: Denies Relieved by: Denies Similar symptoms previously: No Recently seen / treated by doctor: No - ROS ROS below otherwise negative: Yes Systems Reviewed and Negative: Yes All other systems reviewed and negative - REPRODUCTIVE Reproductive: DENIES: : Past Medical History - General Information source: Patient - Social History Smoking Status: Unknown if Ever Smoked Frequency of alcohol use: None Drug Abuse: None Lives with: Family Family History: Reviewed & Not Pertinent, Other - Past Medical History Cardiac Medical History: Reports: Hx Hypertension - not current Pulmonary Medical History: Reports: Hx Pneumonia Neurological Medical History: Reports: Hx Migraine, Hx Seizures Renal/ Medical History: Denies: Hx Peritoneal Dialysis Psychiatric Medical History: Reports: Hx Bipolar Disorder, Hx Depression, Hx Schizophrenia Other: seizures Past Surgical History: Reports: Hx Appendectomy, Hx Breast Surgery - bilateral lumpectomy, Hx Section - x3, Hx Tubal Ligation - Immunizations Immunizations up to date: Yes Hx Diphtheria, Pertussis, Tetanus Vaccination: Yes - 2009 Hx Pneumococcal Vaccination: 06/23/10 Vertical Provider Document - CONSTITUTIONAL Agree With Documented VS: Yes Exam Limitations: No Limitations - INFECTION CONTROL TRAVEL OUTSIDE OF THE [place] IN LAST 30 DAYS: No - HEENT HEENT: Normocephalic - NECK Neck: Supple - MUSCULOSKELETAL/EXTREMETIES Musculoskeletal/Extremeties: MAEW, FROM, Tender - See below - NEURO Level of Consciousness: Awake Motor/Sensory: No Motor Deficit, No Sensory Deficit - DERM Integumentary: Warm, Dry Adult Front & Back Diagram: 1 - 3 cm bulla with serous fluid, erythema, tender, warm perimeter. 2+ DP. No lymphangitis. Discharge - Discharge Clinical Impression: bulla left lateral foot Condition: Good Disposition: HOME, SELF-CARE Instructions: Bactroban Ointment ([facility]), Cephalexin ([facility]), Trimethoprim-Sulfa ( [facility]), Warm Packs ([facility]) Additional Instructions: Warm compress Bactroban ointment twice a day Try to keep the blister intact Return to the emergency room if he see a red streak or increased pain or fever Take the antibiotics as prescribed Follow-up with Dr. Garcia on Friday Prescriptions: Cephalexin Monohydrate [Keflex 500 mg Capsule] 500 mg PO QID #28 capsule Sulfamethoxazole/Trimethoprim [Sulfamethoxazole-Tmp Ds Tablet] 1 each PO BID # 14 tablet Referrals: LIONEL GARCIA MD [Primary Care Provider] - 11/18/17
[2017-11-16] MEDS ORDERED: SULFAMETHOXAZOLE/TRIMETHOPRIM 800-160 MG TABLET PO ONE (09:43)
[2017-11-16] MEDS ORDERED: CEPHALEXIN 500 MG CAPSULE PO ONE (09:43)
[2017-11-16] MEDS ORDERED: MUPIROCIN 2% OINTMENT 22 GM TP ONE (09:45)
--- NOTE | 2017-11-16 10:03 | RADIOLOGY REPORT (SQ) ---
EXAM DESCRIPTION: FOOT LEFT COMPLETE COMPLETED DATE/TIME: 11/16/2017 9:45 am REASON FOR STUDY: cyst? COMPARISON: None. NUMBER OF VIEWS: Three views. TECHNIQUE: AP, lateral and oblique radiographic images acquired of the left foot. LIMITATIONS: None. FINDINGS: MINERALIZATION: Normal. BONES: No acute fracture or dislocation. No worrisome bone lesions. JOINTS: No effusions. SOFT TISSUES: No soft tissue swelling. No foreign body. OTHER: No other significant finding. IMPRESSION: NEGATIVE STUDY OF THE LEFT FOOT. NO RADIOGRAPHIC EVIDENCE OF ACUTE INJURY. TECHNICAL DOCUMENTATION: JOB ID: [id number] [employer]- All Rights Reserved Reading location - IP/workstation name: [email or web address]
== END 2017-11-16 10:02 | disposition home or self-care (01) ==
LOC: ER 09:12
DX: R23.8 Other skin changes (principal)
CPT/HCPCS: 99283; 73630; J3490 ×2

== ENCOUNTER 2017-11-24 18:45 | Emergency (ER) | payer MEDICAID ==
--- NOTE | 2017-11-24 19:43 | ER Document Report ---
ED Medical Screen (RME) - General Chief Complaint: Psych Problem Stated Complaint: PSYCH EVAL Time Seen by Provider: 11/24/17 19:43 TRAVEL OUTSIDE OF THE [place] IN LAST 30 DAYS: No - Related Data Allergies/Adverse Reactions: No Known Allergies Allergy (Verified 11/24/17 19:42) Past Medical History - Social History Frequency of alcohol use: Occasional Drug Abuse: None Family history: None - Past Medical History Cardiac Medical History: Reports: Hx Hypertension - not current Pulmonary Medical History: Reports: Hx Pneumonia Neurological Medical History: Reports: Hx Migraine, Hx Seizures Renal/ Medical History: Denies: Hx Peritoneal Dialysis Psychiatric Medical History: Reports: Hx Bipolar Disorder, Hx Depression, Hx Schizophrenia Past Surgical History: Reports: Hx Appendectomy, Hx Breast Surgery - bilateral lumpectomy, Hx Section - x3, Hx Tubal Ligation - Immunizations Immunizations up to date: Yes Hx Diphtheria, Pertussis, Tetanus Vaccination: Yes - 2009 Physical Exam - Vital signs Vitals: Temp Pulse Resp BP Pulse Ox 98.3 F 98 18 102/62 99 11/24/17 18:47 11/24/17 18:47 11/24/17 18:47 11/24/17 18:47 11/24/17 18:47 Course - Vital Signs Vital signs: Temp Pulse Resp BP Pulse Ox 98.3 F 98 18 102/62 99 11/24/17 18:47 11/24/17 18:47 11/24/17 18:47 11/24/17 18:47 11/24/17 18:47 Doctor's Discharge - Discharge Referrals: LIONEL GARCIA MD [Primary Care Provider] - Follow up as needed
--- NOTE | 2017-11-24 20:08 | ER Document Report ---
ED General - General Chief Complaint: Psych Problem Stated Complaint: PSYCH EVAL Time Seen by Provider: 11/24/17 19:43 TRAVEL OUTSIDE OF THE [place] IN LAST 30 DAYS: No - HPI Patient complains to provider of: Schizophrenia Notes: Patient with history of schizophrenia presents profoundly decompensated. Patient is having active hallucinations. Patient is having aberrant behavior she lives alone. Patient was seen by her case manager specialist and psychiatrist today. Always 90 outside the heat was on in her house. Patient has been noncompliant with her medications. Meds are package for her to take individual days she has not taken them it weeks. Patient is having tangential thought process. Denies all physical complaints - Related Data Allergies/Adverse Reactions: No Known Allergies Allergy (Verified 11/24/17 19:42) Past Medical History - Social History Smoking Status: Never Smoker Frequency of alcohol use: Occasional Drug Abuse: None Family History: Reviewed & Not Pertinent, Other Patient has suicidal ideation: Yes Patient has homicidal ideation: No - Past Medical History Cardiac Medical History: Reports: Hx Hypertension - not current Pulmonary Medical History: Reports: Hx Pneumonia Neurological Medical History: Reports: Hx Migraine, Hx Seizures Renal/ Medical History: Denies: Hx Peritoneal Dialysis Psychiatric Medical History: Reports: Hx Bipolar Disorder, Hx Depression, Hx Schizophrenia Past Surgical History: Reports: Hx Appendectomy, Hx Breast Surgery - bilateral lumpectomy, Hx Section - x3, Hx Tubal Ligation - Immunizations Immunizations up to date: Yes Hx Diphtheria, Pertussis, Tetanus Vaccination: Yes - 2009 Hx Pneumococcal Vaccination: 06/23/10 Review of Systems - Review of Systems Notes: REVIEW OF SYSTEMS: CONSTITUTIONAL: -fevers, -chills EENT: -eye pain, -difficulty swallowing, -nasal congestion CARDIOVASCULAR: -chest pain, -syncope. RESPIRATORY: -cough, -SOB GASTROINTESTINAL: -abdominal pain, -nausea, -vomiting, -diarrhea GENITOURINARY: -dysuria, -hematuria MUSCULOSKELETAL: -back pain, -neck pain SKIN: -rash or skin lesions. HEMATOLOGIC: -easy bruising or bleeding. LYMPHATIC: -swollen, enlarged glands. NEUROLOGICAL: -altered mental status or loss of consciousness, -headache, - neurologic symptoms PSYCHIATRIC: -anxiety, -depression. ALL OTHER SYSTEMS REVIEWED AND NEGATIVE. Physical Exam - Vital signs Vitals: Temp Pulse Resp BP Pulse Ox 98.3 F 98 18 102/62 99 11/24/17 18:47 06/04/18 18:47 11/24/17 18:47 11/24/17 18:47 11/24/17 18:47 - Notes Notes: PHYSICAL EXAMINATION: GENERAL: Well-appearing, well-nourished and in no acute distress. HEAD: Atraumatic, normocephalic. EYES: Pupils equal round and reactive to light, extraocular movements intact, sclera anicteric, conjunctiva are normal. ENT: nares patent, oropharynx clear without exudates. Moist mucous membranes. NECK: Normal range of motion, supple without lymphadenopathy LUNGS: Breath sounds clear to auscultation bilaterally and equal. No wheezes rales or rhonchi. HEART: Regular rate and rhythm without murmurs ABDOMEN: Soft, nontender, normoactive bowel sounds. No guarding, no rebound. No masses appreciated. EXTREMITIES: Normal range of motion, no pitting or edema. No cyanosis. NEUROLOGICAL: Cranial nerves grossly intact. Normal speech, normal gait. Normal sensory and motor exams. PSYCH: Normal mood, normal affect. SKIN: Warm, Dry, normal turgor, no rashes or lesions noted. Course - Re-evaluation Re-evalutation: 11/24/17 20:07 Unfortunate female with schizophrenia presents in need of involuntary commitment inpatient stabilization. Patient is reassuring workup and physical exam. Patient has papers started by myself. Will be admitted to the hospital for close monitoring and placement of inpatient psychiatric hospital. - Vital Signs Vital signs: Temp Pulse Resp BP Pulse Ox 98.3 F 98 18 102/62 99 11/24/17 18:47 11/24/17 18:47 11/24/17 18:47 11/24/17 18:47 11/24/17 18:47 Discharge - Discharge Clinical Impression: Schizophrenia Condition: Stable Disposition: PSYCH HOSP/UNIT Referrals: LIONEL GARCIA MD [Primary Care Provider] - Follow up as needed
[2017-11-24 20:40] LABS: ABSOLUTE EOSINOPHILS # (AUTO) 0.2 10^3/uL (0.0-0.6); ABSOLUTE LYMPHOCYTES (AUTO) 2.3 10^3/uL (0.5-4.7); ABSOLUTE MONOCYTES (AUTO) 0.6 10^3/uL (0.1-1.4); ABSOLUTE NEUT (AUTO) 2.1 10^3/uL (1.7-8.2); BASOPHILS % (AUTO) 0.5 % (0-2); EOSINOPHILS % (AUTO) 3.6 % (0-6); HEMOGLOBIN 11.2 g/dL (12.0-15.5); LYMPHOCYTES % (AUTO) 43.6 % (13-45); MEAN CORPUSCULAR HEMOGLOBIN 31.8 pg (27.0-33.4); MEAN CORPUSCULAR HGB CONC 33.9 g/dL (32.0-36.0); MEAN CORPUSCULAR VOLUME 94 fl (80-97); MONOCYTES % (AUTO) 11.9 % (3-13); PLATELET COUNT 287 10^3/uL (150-450); RED BLOOD COUNT 3.52 10^6/uL (3.72-5.28); RED CELL DISTRIBUTION WIDTH 15.1 % (11.5-14.0); SEGMENTED NEUTROPHILS % (AUTO) 40.4 % (42-78); TOTAL CELLS COUNTED % (AUTO) 100 %; WHITE BLOOD COUNT 5.3 10^3/uL (4.0-10.5)
[2017-11-24 20:57] LABS: ALANINE AMINOTRANSFERASE 21 U/L (9-52); ALBUMIN 4.3 g/dL (3.5-5.0); ALKALINE PHOSPHATASE 62 U/L (38-126); ANION GAP 13 (5-19); ASPARTATE AMINO TRANSFERASE 22 U/L (14-36); BILIRUBIN,DIRECT 0.4 mg/dL (0.0-0.4); BILIRUBIN,TOTAL 0.5 mg/dL (0.2-1.3); BLOOD UREA NITROGEN 21 mg/dL (7-20); CALCIUM 9.5 mg/dL (8.4-10.2); CARBON DIOXIDE 24 mmol/L (22-30); CHLORIDE 108 mmol/L (98-107); GLUCOSE 75 mg/dL (75-110); POTASSIUM 3.6 mmol/L (3.6-5.0); SODIUM 145.3 mmol/L (137-145); TOTAL PROTEIN 7.2 g/dL (6.3-8.2)
--- NOTE | 2017-11-24 21:33 | ER Document Report ---
ED General - General Chief Complaint: Psych Problem Stated Complaint: PSYCH EVAL Time Seen by Provider: 11/24/17 19:43 Cannot obtain history due to: Mentally challenged Notes: Patient is a 37-year-old female who presents with concerns of erratic behavior. History is limited as the patient appears to be manic and also uncertain of exactly what has been going on. She also has paranoid delusions stating that there are people out to get her and that they are going to find her trapped here in the emergency department and harm her. She struggles to tell me how long she has been feeling this way. She states that she takes her medications but "not exactly like I am supposed to". She denies any acute medical concerns or complaints. History is otherwise limited secondary to the patient's psychiatric condition. TRAVEL OUTSIDE OF THE [place] IN LAST 30 DAYS: No - Related Data Allergies/Adverse Reactions: No Known Allergies Allergy (Verified 11/24/17 19:42) Past Medical History - General Information source: Patient - Social History Smoking Status: Never Smoker Frequency of alcohol use: Occasional Drug Abuse: None Lives with: Alone Family History: Reviewed & Not Pertinent, Other Patient has suicidal ideation: Yes Patient has homicidal ideation: No - Past Medical History Cardiac Medical History: Reports: Hx Hypertension - not current Pulmonary Medical History: Reports: Hx Pneumonia Neurological Medical History: Reports: Hx Migraine, Hx Seizures Renal/ Medical History: Denies: Hx Peritoneal Dialysis Psychiatric Medical History: Reports: Hx Bipolar Disorder, Hx Depression, Hx Schizophrenia Past Surgical History: Reports: Hx Appendectomy, Hx Breast Surgery - bilateral lumpectomy, Hx Section - x3, Hx Tubal Ligation - Immunizations Immunizations up to date: Yes Hx Diphtheria, Pertussis, Tetanus Vaccination: Yes - 2009 Hx Pneumococcal Vaccination: 06/23/10 Review of Systems - Review of Systems Notes: Constitutional: Negative for fever. HENT: Negative for sore throat. Eyes: Negative for visual changes. Cardiovascular: Negative for chest pain. Respiratory: Negative for shortness of breath. Gastrointestinal: Negative for abdominal pain, vomiting or diarrhea. Genitourinary: Negative for dysuria. Musculoskeletal: Negative for back pain. Skin: Negative for rash. Neurological: Negative for headaches, weakness or numbness. 10 point ROS negative except as marked above and in HPI. Physical Exam - Vital signs Vitals: Temp Pulse Resp BP Pulse Ox 98.3 F 98 18 102/62 99 11/24/17 18:47 11/24/17 18:47 11/24/17 18:47 11/24/17 18:47 11/24/17 18:47 Interpretation: Normal Notes: PHYSICAL EXAMINATION: GENERAL: Disheveled, seems to be somewhat disoriented HEAD: Atraumatic, normocephalic. EYES: Pupils equal round and reactive to light, extraocular movements intact, sclera anicteric, conjunctiva are normal. ENT: nares patent, oropharynx clear without exudates. Dry mucous membranes. NECK: Normal range of motion, supple without lymphadenopathy LUNGS: Breath sounds clear to auscultation bilaterally and equal. No wheezes rales or rhonchi. HEART: Regular rate and rhythm without murmurs ABDOMEN: Soft, nontender, normoactive bowel sounds. No guarding, no rebound. No masses appreciated. EXTREMITIES: Normal range of motion, no pitting or edema. No cyanosis. NEUROLOGICAL: No focal neurological deficits. Moves all extremities spontaneously and on command. PSYCH: Poor eye contact, tangential thought process. Does not appear to be responding to internal stimuli. Paranoid delusions SKIN: Warm, Dry, normal turgor, no rashes or lesions noted. Course - Re-evaluation Re-evalutation: 11/24/17 21:32 Patient presents after apparently coming to the hospital due to concerns of erratic behavior. Patient is very guarded on history taking with me, although does not appear to be actively responding to internal stimuli. The patient denies any acute medical complaints although staff has noted that her urinalysis was very foul in smell. Awaiting urine results. Her only request is that she would like something to eat or drink. The patient was placed on involuntary commitment by the initial private physician. I have discussed the case with Dr. Bhatt the psychologist on staff and she has recommended that we continue to monitor the patient and then will speak to her again in the morning. Medical screening laboratories are otherwise unremarkable. She is medically cleared for evaluation and disposition by psychiatry in the morning. - Vital Signs Vital signs: Temp Pulse Resp BP Pulse Ox 98.3 F 98 18 102/62 99 11/24/17 18:47 11/24/17 18:47 11/24/17 18:47 11/24/17 18:47 06/04/18 18:47 - Laboratory Result Diagrams: 11/24/17 20:28 11/24/17 20:28 Laboratory results interpreted by me: 11/24/17 11/24/17 11/24/17 20:28 20:28 22:04 RBC 3.52 L Hgb 11.2 L Hct 33.0 L RDW 15.1 H Seg Neutrophils % 40.4 L Sodium 145.3 H Chloride 108 H BUN 21 H Urine Protein 100 H Urine Ketones 20 H Urine Blood MODERATE H Urine Bilirubin SMALL H Urine Urobilinogen 4.0 H Discharge - Discharge Clinical Impression: Abnormal behavior, Dehydration Condition: Good Referrals: LIONEL GARCIA MD [Primary Care Provider] - Follow up as needed
[2017-11-24 22:21] LABS: AMORPHOUS SEDIMENT,URINE TRACE /HPF; APPEARANCE,URINE CLOUDY; BILIRUBIN,URINE SMALL (NEGATIVE); COLOR,URINE AMBER; GLUCOSE, URINE NEGATIVE (NEGATIVE); KETONES,URINE 20 mg/dL (NEGATIVE); LEUKOCYTE ESTERASE,URINE NEGATIVE (NEGATIVE); NITRITE,URINE NEGATIVE (NEGATIVE); PROTEIN,URINE 100 mg/dL (NEGATIVE); URINE SPECIFIC GRAVITY 1.032
[2017-11-24 22:36] LABS: URINE AMPHETAMINES SCREEN NEGATIVE; URINE BARBITURATES SCREEN NEGATIVE; URINE BENZODIAZEPINES SCREEN NEGATIVE; URINE COCAINE SCREEN NEGATIVE; URINE MARIJUANA (THC) SCREEN NEGATIVE; URINE METHADONE SCREEN NEGATIVE; URINE PHENCYCLIDINE SCREEN NEGATIVE
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
[2017-11-25] MEDS ORDERED: HYDROXYZINE PAMOATE 50 MG CAPSULE PO PRN (09:46)
[2017-11-25] MEDS ORDERED: BENZTROPINE MESYLATE 1 MG TABLET PO SCH (10:00)
[2017-11-25] MEDS ORDERED: PREGABALIN 100 MG CAPSULE PO SCH (10:00)
--- NOTE | 2017-11-25 10:16 | ER Document Report ---
Doctor's Note Notes: 11/25/17 10:15 Rounds: Chart reviewed and patient interviewed. Patient seems to be oriented and answers questions appropriately. She is smiling and talkative and recognizes me as someone who is seen her in the past. Says her mother is upstairs at work. I know her mother well, as well. Labs were all essentially normal. Urine looks like a contaminant, but I am going to culture it. Vital signs are all normal. Patient appears to be medically stable for transfer or discharge. Rafia Zacarias MD
[2017-11-25] MEDS: OLANZAPINE 5 MG TABLET PO SCH ×2 (10:49→18:51)
[2017-11-25] MEDS ORDERED: PREGABALIN 75 MG CAPSULE PO ONE (11:00)
[2017-11-25] MEDS ORDERED: (PENDING PHARMACY ID) (Benztropine Mesylate [Benztropine Mesylate 2 Mg Tablet] 2 MG) PO SCH (18:00)
[2017-11-25] MEDS ORDERED: (PENDING PHARMACY ID) (Lamotrigine [Lamictal] 200 MG) PO SCH (22:00)
[2017-11-25] MEDS ORDERED: CLONIDINE HCL 0.2 MG TABLET PO SCH (22:00)
[2017-11-25] MEDS: BENZTROPINE MESYLATE 1 MG TABLET PO SCH (23:46)
[2017-11-25] MEDS: PREGABALIN 75 MG CAPSULE PO SCH (23:47)
[2017-11-25] MEDS: LAMOTRIGINE 100 MG TABLET PO SCH (23:51)
--- NOTE | 2017-11-26 08:22 | PSYCHOLOGICAL NOTE ---
Psych Note - Psych Note Psych Note: Reason for consult: Erratic behavior Contact Permissions: Alberto Sanabria [phone] patient's mother Patient with history of schizophrenia presents profoundly decompensated. Patient is having active hallucinations. Patient is having aberrant behavior she lives alone. Patient was seen by her case monitor and psychiatrist today. Always 90 outside the heat was on in her house. Patient has been noncompliant with her medications. Meds are package for her to take individual days she has not taken them it weeks. Patient is having tangential thought process. Clinician conducted checking with patient Patient is noted to have been sleeping and was awoken for evaluation. Upon awaking patient removed the blanket off her head while slightly laughing. During evaluation patient is noted to be frequently laughing and presenting in an elevated mood. She disclosed that last night was the best sleep she has had an "forever." Patient confirms she has seen and heard things that confused or scared her; however, states that she believes it was either last night or first thing this morning when the last time it happened. Patient appears slightly confused but then started laughing again. Patient attempted to discuss medical history but was unable to complete thoughts and is a poor historian. Medication recommendations made by [facility]'s contracted psychiatric, Dr. Teresa MD includes: 1. Please discontinue home medication Paxil 2. These discontinue home medication Latuda 3. Please discontinue home medications Seroquel 400 mg at night 4. Please begin Zyprexa 5 mg twice a day 5. Please begin Cogentin 1 mg twice a day 6. Please begin clonidine 0.2 mg at night 7. Please continue Lyrica 150 mg every 12 (this is a home medication) 8. Please continue Lamichtal 200mg every 12 hours (this is a home medication) 8. Please continue Vistaril 50 mg every 6 hours as needed for agitation and anxiety 9. Please hold the home medication prazosin. Diagnosis: 295.70 (F25.0) Schizoaffective Disorder, Bipolar type, per history provided by patient Impression/plan: Recommendation to maintain involuntary commitment due to patient meeting criteria HI GS 122C. Although patient denied SI/HI she is continuing to present in an elevated mood. In addition clinician observed patient demonstrates symptoms of psychosis, she has frequent derailment of speech, inappropriate laughter during assessment, and is discloses hallucinations since arriving to [facility] ED. Patient was accepted to [facility]; transferred patient will occur today. consulted with Dr. Bhatt regarding the management and care of patient. Attending physician in agreement with plan and disposition.
--- NOTE | 2017-11-26 10:09 | ER Document Report ---
Doctor's Note Notes: 11/26/17 10:07 Rounds: Chart reviewed and patient interviewed. Patient is awake and alert and very talkative. Denies any suicidal thoughts. No new labs to review. Urine culture is pending, mentioned in previous note. Vital signs are all normal. Patient appears to be medically stable for transfer or discharge. Rafia Zacarias MD
[2017-11-26] MEDS: LAMOTRIGINE 100 MG TABLET PO SCH (10:29)
[2017-11-26] MEDS: OLANZAPINE 5 MG TABLET PO SCH (10:30)
[2017-11-26] MEDS: BENZTROPINE MESYLATE 1 MG TABLET PO SCH (10:30)
[2017-11-26] MEDS: PREGABALIN 75 MG CAPSULE PO SCH (10:30)
[2017-11-26 13:24] VITALS: BP 94/53
== END 2017-11-26 13:53 ==
LOC: ER 18:45
DX: F20.9 Schizophrenia, unspecified (principal); F91.9 Conduct disorder, unspecified; E86.0 Dehydration; I10 Essential (primary) hypertension; Z91.14 Patient's other noncompliance with medication regimen
CPT/HCPCS: 36415; 87086; 85025; 81025; 80076; 80048; 81001; 80307; J3490 ×9

== ENCOUNTER 2018-03-05 13:55 | Emergency (ER) | payer MEDICAID, OTHER ==
--- NOTE | 2018-03-05 14:16 | ER Document Report ---
ED Medical Screen (RME) - General Chief Complaint: Vaginal Bleeding Stated Complaint: VAGINAL BLEEDING Time Seen by Provider: 03/05/18 14:12 Notes: 37-year-old female patient history of seizures, and bilateral tubal ligation, reports continuous vaginal bleeding since yesterday. She reports she has soaked 8 pads this morning. She has never had dysfunctional uterine bleeding in the past. Her last menstrual period was about 2 weeks ago. I have greeted and performed a rapid initial assessment of this patient. A comprehensive ED assessment and evaluation of the patient, analysis of test results and completion of the medical decision making process will be conducted by additional ED providers. TRAVEL OUTSIDE OF THE [place] IN LAST 30 DAYS: No - Related Data Allergies/Adverse Reactions: No Known Allergies Allergy (Verified 11/24/17 19:42) Past Medical History - General Last Menstrual Period: 02/07/18 - Social History Chew tobacco use (# tins/day): No Frequency of alcohol use: None Drug Abuse: None Family history: None - Past Medical History Cardiac Medical History: Reports: Hx Hypertension - not current Pulmonary Medical History: Reports: Hx Pneumonia Neurological Medical History: Reports: Hx Migraine, Hx Seizures Renal/ Medical History: Denies: Hx Peritoneal Dialysis Psychiatric Medical History: Reports: Hx Bipolar Disorder, Hx Depression, Hx Schizophrenia Past Surgical History: Reports: Hx Appendectomy, Hx Breast Surgery - bilateral lumpectomy, Hx Section - x3, Hx Tubal Ligation - Immunizations Immunizations up to date: Yes Hx Diphtheria, Pertussis, Tetanus Vaccination: Yes - 2009 Physical Exam - Vital signs Vitals: Temp Pulse Resp BP Pulse Ox 98.2 F 90 20 116/79 98 03/05/18 13:59 03/05/18 13:59 03/05/18 13:59 03/05/18 13:59 03/05/18 13:59 Course - Vital Signs Vital signs: Temp Pulse Resp BP Pulse Ox 98.2 F 90 20 116/79 98 03/05/18 13:59 03/05/18 13:59 03/05/18 13:59 03/05/18 13:59 03/05/18 13:59 Doctor's Discharge - Discharge Referrals: LIONEL GARCIA MD [Primary Care Provider] - Follow up as needed
[2018-03-05 14:34] LABS: ABSOLUTE EOSINOPHILS # (AUTO) 0.1 10^3/uL (0.0-0.6); ABSOLUTE MONOCYTES (AUTO) 0.7 10^3/uL (0.1-1.4); ABSOLUTE NEUT (AUTO) 3.9 10^3/uL (1.7-8.2); BASOPHILS % (AUTO) 0.5 % (0-2); HEMATOCRIT 33.9 % (36.0-47.0); HEMOGLOBIN 11.6 g/dL (12.0-15.5); MEAN CORPUSCULAR HEMOGLOBIN 31.9 pg (27.0-33.4); MEAN CORPUSCULAR HGB CONC 34.2 g/dL (32.0-36.0); MEAN CORPUSCULAR VOLUME 93 fl (80-97); MONOCYTES % (AUTO) 9.7 % (3-13); PLATELET COUNT 294 10^3/uL (150-450); RED BLOOD COUNT 3.63 10^6/uL (3.72-5.28); RED CELL DISTRIBUTION WIDTH 13.4 % (11.5-14.0); SEGMENTED NEUTROPHILS % (AUTO) 57.8 % (42-78); TOTAL CELLS COUNTED % (AUTO) 100 %; WHITE BLOOD COUNT 6.7 10^3/uL (4.0-10.5)
[2018-03-05 14:54] LABS: ALANINE AMINOTRANSFERASE 19 U/L (9-52); ALKALINE PHOSPHATASE 50 U/L (38-126); ANION GAP 12 (5-19); ASPARTATE AMINO TRANSFERASE 16 U/L (14-36); BILIRUBIN,DIRECT 0.2 mg/dL (0.0-0.4); BILIRUBIN,TOTAL 0.3 mg/dL (0.2-1.3); BLOOD UREA NITROGEN 8 mg/dL (7-20); CALCIUM 9.7 mg/dL (8.4-10.2); CARBON DIOXIDE 24 mmol/L (22-30); CHLORIDE 109 mmol/L (98-107); GLUCOSE 96 mg/dL (75-110); POTASSIUM 3.9 mmol/L (3.6-5.0); SODIUM 144.6 mmol/L (137-145); TOTAL PROTEIN 6.8 g/dL (6.3-8.2)
[2018-03-05] MEDS ORDERED: HYDROCODONE/ACETAMINOPHEN 5-325 MG TABLET PO ONE (15:28)
[2018-03-05 15:55] LABS: APPEARANCE,URINE SLIGHTLY-CLOUDY; BILIRUBIN,URINE NEGATIVE (NEGATIVE); COLOR,URINE RED; GLUCOSE, URINE NEGATIVE (NEGATIVE); KETONES,URINE NEGATIVE (NEGATIVE); LEUKOCYTE ESTERASE,URINE TRACE (NEGATIVE); NITRITE,URINE NEGATIVE (NEGATIVE); PROTEIN,URINE 100 mg/dL (NEGATIVE); URINE SPECIFIC GRAVITY 1.008; UROBILINOGEN,URINE NEGATIVE mg/dL (<2.0)
--- NOTE | 2018-03-05 16:00 | ER Document Report ---
ED General - General Chief Complaint: Vaginal Bleeding Stated Complaint: VAGINAL BLEEDING Time Seen by Provider: 03/05/18 14:12 TRAVEL OUTSIDE OF THE [place] IN LAST 30 DAYS: No - HPI Patient complains to provider of: vaginal cramping and spotting Onset: Other - This is a 37-year-old female with 3 sections in the past that presents for evaluation of cramping abdominal pain as well as some spotting on wiping of her vagina with toilet paper after voiding, she is never had anything like this in the past, she has fairly regular menses every 4 weeks her last being approximately 4 weeks prior. She has been told once that she did have endometriosis in the past but has not had an long time. She denies any fevers or chills, denies any improvement in her symptoms with the use of ibuprofen. - Related Data Allergies/Adverse Reactions: No Known Allergies Allergy (Verified 11/24/17 19:42) Past Medical History - General Information source: Patient Last Menstrual Period: 02/07/18 - Social History Smoking Status: Current Every Day Smoker Chew tobacco use (# tins/day): No Frequency of alcohol use: None Drug Abuse: None Family History: Reviewed & Not Pertinent, Other Patient has suicidal ideation: No Patient has homicidal ideation: No - Past Medical History Cardiac Medical History: Reports: Hx Hypertension - not current Pulmonary Medical History: Reports: Hx Pneumonia Neurological Medical History: Reports: Hx Migraine, Hx Seizures Renal/ Medical History: Denies: Hx Peritoneal Dialysis Psychiatric Medical History: Reports: Hx Bipolar Disorder, Hx Depression, Hx Schizophrenia Past Surgical History: Reports: Hx Appendectomy, Hx Breast Surgery - bilateral lumpectomy, Hx Section - x3, Hx Tubal Ligation - Immunizations Immunizations up to date: Yes Hx Diphtheria, Pertussis, Tetanus Vaccination: Yes - 2009 Hx Pneumococcal Vaccination: 06/23/10 Review of Systems - Review of Systems -: Yes All other systems reviewed and negative Physical Exam - Vital signs Vitals: Temp Pulse Resp BP Pulse Ox 98.2 F 90 20 116/79 98 03/05/18 13:59 03/05/18 13:59 03/05/18 13:59 03/05/18 13:59 03/05/18 13:59 - General General appearance: Appears well In distress: None - HEENT Head: Normocephalic Eyes: Normal Conjunctiva: Normal Cornea: Normal - Respiratory Respiratory status: No respiratory distress Chest status: Nontender Breath sounds: Normal Chest palpation: Normal - Cardiovascular Rhythm: Regular Heart sounds: Normal auscultation Murmur: No - Abdominal Inspection: Normal Distension: No distension Tenderness: Nontender Organomegaly: No organomegaly - Back Back: Normal - Extremities General upper extremity: Normal inspection, Nontender, Normal ROM, Normal strength General lower extremity: Normal inspection, Nontender, Normal ROM, Normal strength - Neurological Neuro grossly intact: Yes Cognition: Normal Orientation: AAOx4 Clarisa Coma Scale Eye Opening: Spontaneous [place] Coma Scale Verbal: Oriented [place] Coma Scale Motor: Obeys Commands [place] Coma Scale Total: 15 Speech: Normal Cranial nerves: Normal - Psychological Associated symptoms: Normal affect Course - Re-evaluation Re-evalutation: 03/05/18 16:23 This 37-year-old female presented for evaluation spotting vaginal bleeding. Has had a history of endometriosis in the past as well as fairly regular periods , this is one day early for this patient. This patient however does relatively well appearing believe that this patient is likely safe for discharge as she has a normal CBC through triage as well as unremarkable chemistry, she has some evidence of potential underlying urinary tract infection causing cystitis as such we will plan for presumptive treatment with Keflex. We will plan for this patient to undergo discharge home with return precautions. 03/05/18 16:31 - Vital Signs Vital signs: Temp Pulse Resp BP Pulse Ox 98 F 82 16 112/68 99 03/05/18 16:15 03/05/18 16:15 03/05/18 16:15 03/05/18 16:15 03/05/18 16:15 - Laboratory Result Diagrams: 03/05/18 14:22 03/05/18 14:22 Laboratory results interpreted by me: 03/05/18 03/05/18 03/05/18 14:22 14:22 15:36 RBC 3.63 L Hgb 11.6 L Hct 33.9 L Chloride 109 H Urine Protein 100 H Urine Blood LARGE H Ur Leukocyte Esterase TRACE H Discharge - Discharge Clinical Impression: Hemorrhagic cystitis Condition: Good Disposition: HOME, SELF-CARE Instructions: Endometriosis ([facility]), Urinary Tract Infection ([facility]) Prescriptions: Cephalexin Monohydrate [Keflex 500 mg Capsule] 500 mg PO BID 3 Days #20 capsule Cephalexin Monohydrate [Keflex 500 mg Capsule] 500 mg PO BID #14 capsule Referrals: LIONEL GARCIA MD [Primary Care Provider] - Follow up as needed
[2018-03-05] MEDS ORDERED: CEPHALEXIN 500 MG CAPSULE PO ONE (16:05)
[2018-03-05] MEDS ORDERED: HYDROCODONE/ACETAMINOPHEN 5-325 MG (6 TAB/ER DISP) PO PRN (16:06)
[2018-03-05 16:15] VITALS: BP 112/68
== END 2018-03-05 16:15 | disposition home or self-care (01) ==
LOC: ER 13:55
DX: N30.90 Cystitis, unspecified without hematuria (principal); N80.9 Endometriosis, unspecified; F17.200 Nicotine dependence, unspecified, uncomplicated
CPT/HCPCS: 36415; 80053; 81001; 84703; 85025; 99284

== ENCOUNTER 2018-03-29 13:23 | Emergency (ER) | payer MEDICAID ==
[2018-03-29 14:02] LABS: ABSOLUTE BASOPHILS # (AUTO) 0.1 10^3/uL (0.0-0.2); ABSOLUTE EOSINOPHILS # (AUTO) 0.2 10^3/uL (0.0-0.6); ABSOLUTE LYMPHOCYTES (AUTO) 1.9 10^3/uL (0.5-4.7); ABSOLUTE MONOCYTES (AUTO) 0.5 10^3/uL (0.1-1.4); ABSOLUTE NEUT (AUTO) 2.6 10^3/uL (1.7-8.2); BASOPHILS % (AUTO) 1.1 % (0-2); EOSINOPHILS % (AUTO) 2.9 % (0-6); HEMATOCRIT 31.1 % (36.0-47.0); HEMOGLOBIN 11.1 g/dL (12.0-15.5); LYMPHOCYTES % (AUTO) 36.6 % (13-45); MEAN CORPUSCULAR HEMOGLOBIN 32.8 pg (27.0-33.4); MEAN CORPUSCULAR HGB CONC 35.9 g/dL (32.0-36.0); MEAN CORPUSCULAR VOLUME 91 fl (80-97); MONOCYTES % (AUTO) 9.1 % (3-13); PLATELET COUNT 287 10^3/uL (150-450); RED CELL DISTRIBUTION WIDTH 13.2 % (11.5-14.0); SEGMENTED NEUTROPHILS % (AUTO) 50.3 % (42-78); TOTAL CELLS COUNTED % (AUTO) 100 %; WHITE BLOOD COUNT 5.1 10^3/uL (4.0-10.5)
[2018-03-29 14:05] LABS: INTERNATIONAL RATION (INR) 1.02; PROTHROMBIN TIME 13.9 SEC (11.4-15.4)
[2018-03-29 14:06] LABS: PARTIAL THROMBOPLASTIN TIME 32.5 SEC (23.5-35.8)
--- NOTE | 2018-03-29 14:08 | RADIOLOGY REPORT (SQ) ---
EXAM DESCRIPTION: CT HEAD WITHOUT COMPLETED DATE/TIME: 03/29/2018 1:41 pm REASON FOR STUDY: Acute left-sided weakness COMPARISON: 10/18/2017 and earlier TECHNIQUE: Axial images acquired through the brain without intravenous contrast. Images reviewed wi th bone, brain and subdural windows. Additional sagittal and coronal reconstructions were generated. Images stored on PACS. All CT scanners at this facility use dose modulation, iterative reconstruction, and/or weight based d osing when appropriate to reduce radiation dose to as low as reasonably achievable (ALARA). [facility]: Dose Right [facility]: CareDose [facility]: Dose Right [facility]: Teradose 4D [facility]: [email or web address] RADIATION DOSE: CT Rad equipment meets quality standard of care and radiation dose reduction techniq ues were employed. CTDIvol: 53.2 mGy. DLP: 1017 mGy-cm. mGy. LIMITATIONS: None. FINDINGS: VENTRICLES: Normal size and contour. CEREBRUM: No masses. No hemorrhage. No midline shift. No evidence for acute infarction. Normal gra y/white matter differentiation. No areas of low density in the white matter. CEREBELLUM: No masses. No hemorrhage. No alteration of density. No evidence for acute infarction. EXTRAAXIAL SPACES: No fluid collections. No masses. ORBITS AND GLOBE: No intra- or extraconal masses. Normal contour of globe without masses. CALVARIUM: No fracture. PARANASAL SINUSES: No fluid or mucosal thickening. SOFT TISSUES: No mass or hematoma. OTHER: No other significant finding. IMPRESSION: NORMAL BRAIN CT WITHOUT CONTRAST. EVIDENCE OF ACUTE STROKE: NO. COMMENT: This report was called to Dr. Zacarias At14:01 on 03/29/2018. Quality ID # [id number]: Final reports with documentation of one or more dose reduction techniques (e.g., Au tomated exposure control, adjustment of the mA and/or kV according to patient size, use of iterative reconstruction technique) TECHNICAL DOCUMENTATION: JOB ID: [id number] [employer]- All Rights Reserved Reading location - IP/workstation name: [email or web address]
--- NOTE | 2018-03-29 14:09 | RADIOLOGY REPORT (SQ) ---
EXAM DESCRIPTION: CHEST SINGLE VIEW COMPLETED DATE/TIME: 03/29/2018 1:42 pm REASON FOR STUDY: Acute left-sided weakness, stroke alert COMPARISON: 05/30/2015 and earlier EXAM PARAMETERS: NUMBER OF VIEWS: One view. TECHNIQUE: Single frontal radiographic view of the chest acquired. RADIATION DOSE: NA LIMITATIONS: None. FINDINGS: LUNGS AND PLEURA: No opacities, masses or pneumothorax. No pleural effusion. MEDIASTINUM AND HILAR STRUCTURES: No masses. Contour normal. HEART AND VASCULAR STRUCTURES: Heart normal in size. Normal vasculature. BONES: No acute findings. HARDWARE: None in the chest. OTHER: No other significant finding. IMPRESSION: NO ACUTE RADIOGRAPHIC FINDING IN THE CHEST. TECHNICAL DOCUMENTATION: JOB ID: [id number] [employer]- All Rights Reserved Reading location - IP/workstation name: [email or web address]
[2018-03-29 14:23] LABS: ALBUMIN 3.8 g/dL (3.5-5.0); ASPARTATE AMINO TRANSFERASE 19 U/L (14-36); BILIRUBIN,DIRECT 0.2 mg/dL (0.0-0.4); BILIRUBIN,TOTAL 0.4 mg/dL (0.2-1.3); BLOOD UREA NITROGEN 9 mg/dL (7-20); CARBON DIOXIDE 24 mmol/L (22-30); GLUCOSE 100 mg/dL (75-110); NEONATAL BILIRUBIN RESULT 0.1 mg/dL (0.1-1.1); TOTAL PROTEIN 6.6 g/dL (6.3-8.2)
[2018-03-29 14:25] LABS: ANION GAP 7 (5-19); CHLORIDE 111 mmol/L (98-107)
[2018-03-29 14:26] LABS: ALANINE AMINOTRANSFERASE 16 U/L (9-52); ALKALINE PHOSPHATASE 46 U/L (38-126); CREATINE KINASE 35 U/L (30-135)
[2018-03-29 14:37] LABS: CREATINE KINASE MB < 0.22 ng/mL (<4.55); TROPONIN I < 0.012 ng/mL
[2018-03-29 15:10] VITALS: BP 113/81
[2018-03-29 15:33] LABS: APPEARANCE,URINE CLEAR; BILIRUBIN,URINE NEGATIVE (NEGATIVE); COLOR,URINE STRAW; GLUCOSE, URINE NEGATIVE (NEGATIVE); KETONES,URINE NEGATIVE (NEGATIVE); LEUKOCYTE ESTERASE,URINE NEGATIVE (NEGATIVE); NITRITE,URINE NEGATIVE (NEGATIVE); PROTEIN,URINE NEGATIVE (NEGATIVE); URINE SPECIFIC GRAVITY 1.003; UROBILINOGEN,URINE NEGATIVE mg/dL (<2.0)
--- NOTE | 2018-03-29 15:33 | ER Document Report ---
ED General - General Chief Complaint: S/S of Possible Stroke Stated Complaint: STROKE SYMPTOMS Time Seen by Provider: 03/29/18 15:18 Notes: Patient says that she started noticing tingling of her about 3 AM this morning. She then noted that her left hand was clenched and her wrist was flexed and she could not get them out of that position. They seem to be stuck in the flexed position, but only in the left upper extremity. She was unable to move her left arm, although she can do so now, but she finds it very painful to straighten her wrist and fingers to neutral. Patient says that she has had a prior episode like this in the year 1999 and that is when she began having seizures. She was told then that she may have had a little stroke. The apparent spasms or flexion of the left hand and wrist and forearm that occurred in 1999, lasted about 2-3 weeks before it finally resolved on its own. Since then, she has had seizures every few months, her most recent one being about 3 months away. She is on medications for the seizures and at one time was seeing Dr. Greer, but now does not have a neurologist since Dr. Greer retired. Patient denies any headaches, loss of consciousness, etc. PMH: Patient is under the care of a psychiatrist for bipolar disorder and schizophrenia. TRAVEL OUTSIDE OF THE [place] IN LAST 30 DAYS: No - Related Data Allergies/Adverse Reactions: No Known Allergies Allergy (Verified 03/29/18 13:59) Past Medical History - Social History Smoking Status: Current Every Day Smoker Frequency of alcohol use: None Drug Abuse: None Family History: Reviewed & Not Pertinent, Other Patient has suicidal ideation: No Patient has homicidal ideation: No - Past Medical History Cardiac Medical History: Reports: Hx Hypercholesterolemia, Hx Hypertension - not current Pulmonary Medical History: Reports: Hx Pneumonia Neurological Medical History: Reports: Hx Migraine, Hx Seizures Psychiatric Medical History: Reports: Hx Bipolar Disorder, Hx Depression, Hx Schizophrenia Past Surgical History: Reports: Hx Appendectomy, Hx Breast Surgery - bilateral lumpectomy, Hx Section - x3, Hx Tubal Ligation - Immunizations Immunizations up to date: Yes Hx Diphtheria, Pertussis, Tetanus Vaccination: Yes - 2009 Hx Pneumococcal Vaccination: 06/23/10 Review of Systems - Review of Systems Notes: REVIEW OF SYSTEMS: CONSTITUTIONAL : Denies fever. EENT: Denies eye, ear, nose or mouth or throat pain or other symptoms. CARDIOVASCULAR: Denies chest pain. RESPIRATORY: Denies cough, chest congestion, or shortness of breath. GASTROINTESTINAL: Denies abdominal pain or nausea, vomiting, or diarrhea. GENITOURINARY: Denies difficulty or painful urinating, urinary frequency, blood in urine. MUSCULOSKELETAL: Denies back or neck pain. Denies joint pain or swelling. See HPI regarding left upper extremity. SKIN: Denies rash or skin lesions. NEUROLOGICAL: Denies LOC or altered mental status. Denies headache. Denies sensory loss or motor deficits. See HPI ALL OTHER SYSTEMS REVIEWED AND NEGATIVE. Physical Exam - Vital signs Vitals: Pulse Ox 99 03/29/18 13:42 Interpretation: Normal Notes: PHYSICAL EXAMINATION: GENERAL: Well-appearing, in no acute distress. HEAD: Atraumatic, normocephalic. EYES: Pupils equal round and reactive to light, extraocular movements intact. ENT: oropharynx clear without exudates. Moist mucous membranes. NECK: Normal range of motion, supple. LUNGS: Breath sounds clear and equal bilaterally. HEART: Regular rate and rhythm without murmurs. ABDOMEN: Soft, nontender. No guarding or rebound. No masses. BACK: No tenderness throughout entire back. EXTREMITIES: Normal range of motion without pain. NEUROLOGICAL: Normal speech, normal gait. Awake, alert, and oriented x3. Cranial nerves normal. Patient's left wrist is firmly flexed and her fist is clenched and she is flexing at the left elbow, as well. She forcefully prevents me from straightening these joints and 1 hour ago she immediately returns them to the clenched position. There is no flaccidity. I cannot determine a way in which this patient could be having these findings from a stroke, and its acute phase. PSYCH: Normal mood, normal affect. SKIN: Warm, dry, no rashes. Course - Re-evaluation Re-evalutation: 03/29/18 21:24 I discussed my confusion is how patient can have recurrent symptoms from an acute stroke. I suggested that maybe she is just having some muscle spasms that will resolve over time, likely did when she had her apparent stroke 18 years ago. I offered a muscle relaxer for her to take and she declined. She was anxious to be able to leave. She walked around her room in the ED very briskly without any difficulty, no problems with her balance. Just her left hand remain clenched left wrist was flexed and some flexion of the left elbow and not wanting to have these areas straightened out to a neutral position. - Vital Signs Vital signs: Temp Pulse Resp BP Pulse Ox 98.8 F 94 22 H 113/81 96 03/29/18 13:56 03/29/18 14:00 03/29/18 15:01 03/29/18 15:01 03/29/18 15:01 - Laboratory Result Diagrams: 03/29/18 13:50 03/29/18 13:50 Laboratory results interpreted by me: 03/29/18 03/29/18 13:50 13:50 RBC 3.40 L Hgb 11.1 L Hct 31.1 L Chloride 111 H - Diagnostic Test Radiology reviewed: Image reviewed, Reports reviewed - CT scan of the brain is normal. No evidence of stroke. - EKG Interpretation by Me EKG shows normal: Sinus rhythm Rate: Normal Rhythm: NSR Additional EKG results interpreted by me: 03/29/18 15:26 EKG shows possible left anterior fascicular block. No acute changes. Discharge - Discharge Clinical Impression: Muscle spasm Condition: Stable Disposition: HOME, SELF-CARE Additional Instructions: Muscle Spasm Left Arm Your examination reveals what seems to be muscle spasms in her left arm and wrist. I can find no physiological reason for this problem but it may be related to your seizure problem. NORMAL EXAM AND WORKUP: Except for the apparent muscle spasms in your left arm, at this time, your examination and workup show no significant abnormality. No significant abnormal physical findings were noted. All laboratory, EKG, and imaging (x-ray , CT scans, ultrasound) studies that were ordered show no significant abnormality. Although your examination and all studies that were ordered showed no significant abnormal finding, there are no examinations and no studies that are 100% accurate. There is always the possibility that some abnormality could exist and not be detected with physical examination or within the limits and capabilities of laboratory and other studies. You should return or follow up as you were instructed on your visit today for further evaluation if your symptoms do not resolve. FOLLOW-UP CARE: If you have been referred to a physician for follow-up care, call the physician s office for an appointment as you were instructed or within the next two days. If you experience worsening or a significant change in your symptoms, notify the physician immediately or return to the Emergency Department at any time for re-evaluation. Follow-up with Dr. Garcia tomorrow if your symptoms persist. Hopefully he can get you set up to see a neurologist about your seizure problem. Return for reevaluation if you have new or worsening symptoms. Referrals: LIONEL GARCIA MD [Primary Care Provider] - Follow up tomorrow
[2018-03-29 15:59] LABS: URINE AMPHETAMINES SCREEN NEGATIVE; URINE BARBITURATES SCREEN NEGATIVE; URINE BENZODIAZEPINES SCREEN NEGATIVE; URINE COCAINE SCREEN NEGATIVE; URINE MARIJUANA (THC) SCREEN NEGATIVE; URINE METHADONE SCREEN NEGATIVE; URINE PHENCYCLIDINE SCREEN NEGATIVE
--- NOTE | 2018-03-29 19:13 | EKG REPORT ---
SEVERITY:- ABNORMAL ECG - SINUS RHYTHM LAD, CONSIDER LEFT ANTERIOR FASCICULAR BLOCK LOW VOLTAGE IN FRONTAL LEADS BORDERLINE PROLONGED QT INTERVAL : Confirmed by: Maine Fraire 29-Mar-2018 19:12:09
== END 2018-03-29 15:38 | disposition home or self-care (01) ==
LOC: ER 13:23
DX: M62.838 Other muscle spasm (principal); F17.200 Nicotine dependence, unspecified, uncomplicated; E78.00 Pure hypercholesterolemia, unspecified; I10 Essential (primary) hypertension; Z98.51 Tubal ligation status
CPT/HCPCS: 36415; 70450; 71045; 80053; 80307; 81001; 82550; 82553; 84484; 85025; 85610; 85730; 93005; 93010; 99285

== ENCOUNTER 2018-04-04 03:04 | Emergency (ER) | payer MEDICAID, OTHER ==
--- NOTE | 2018-04-04 03:22 | ER Document Report ---
ED General - General Stated Complaint: POSSIBLE SEIZURE Time Seen by Provider: 04/04/18 03:10 Mode of Arrival: Ambulatory Information source: Patient, Law Enforcement Notes: Patient is a 38-year-old female who is a known epileptic arriving [facility] department from the group home after suffering a seizure. Staff members from the group home states that she started shaking and fell striking her head. Patient is alert, oriented and answering all questions appropriately. Patient reports that she feels fine and has no complaints. Patient reports that she has missed 2 doses of her antiseizure medications. TRAVEL OUTSIDE OF THE [place] IN LAST 30 DAYS: No - Related Data Allergies/Adverse Reactions: No Known Allergies Allergy (Verified 03/29/18 13:59) Past Medical History - General Information source: Patient - Social History Smoking Status: Never Smoker Frequency of alcohol use: None Drug Abuse: None Family History: Reviewed & Not Pertinent, Other - Past Medical History Cardiac Medical History: Reports: Hx Hypercholesterolemia, Hx Hypertension - not current Pulmonary Medical History: Reports: Hx Pneumonia Neurological Medical History: Reports: Hx Migraine, Hx Seizures Renal/ Medical History: Denies: Hx Peritoneal Dialysis Psychiatric Medical History: Reports: Hx Bipolar Disorder, Hx Depression, Hx Schizophrenia Past Surgical History: Reports: Hx Appendectomy, Hx Breast Surgery - bilateral lumpectomy, Hx Section - x3, Hx Tubal Ligation - Immunizations Immunizations up to date: Yes Hx Diphtheria, Pertussis, Tetanus Vaccination: Yes - 2009 Hx Pneumococcal Vaccination: 06/23/10 Review of Systems - Review of Systems Constitutional: No symptoms reported EENT: No symptoms reported Cardiovascular: No symptoms reported Respiratory: No symptoms reported Gastrointestinal: No symptoms reported Genitourinary: No symptoms reported Female Genitourinary: No symptoms reported Musculoskeletal: No symptoms reported Skin: No symptoms reported Hematologic/Lymphatic: No symptoms reported Neurological/Psychological: No symptoms reported Physical Exam - Vital signs Vitals: Resp Pulse Ox 20 97 04/04/18 03:57 04/04/18 03:57 - Notes Notes: PHYSICAL EXAMINATION: GENERAL: Well-appearing, well-nourished and in no acute distress. HEAD: Atraumatic, normocephalic. EYES: Pupils equal round and reactive to light, extraocular movements intact, conjunctiva are normal. ENT: Nares patent, oropharynx clear without exudates. Moist mucous membranes. NECK: Normal range of motion, supple without lymphadenopathy LUNGS: Breath sounds clear to auscultation bilaterally and equal. No wheezes rales or rhonchi. HEART: Regular rate and rhythm without murmurs ABDOMEN: Soft, nontender, nondistended abdomen. No guarding, no rebound. No masses appreciated. Female : deferred Musculoskeletal: Normal range of motion, no pitting or edema. No cyanosis. NEUROLOGICAL: Cranial nerves grossly intact. Normal speech, normal gait. Normal sensory, motor exams PSYCH: Normal mood, normal affect. SKIN: Warm, Dry, normal turgor, no rashes or lesions noted. Course - Re-evaluation Re-evalutation: Patient is alert, oriented and answering all questions on arrival. No postictal phase noted. Patient does have a known history of epilepsy, states she missed several doses as she has been in group home for approximately 16 hours. The group home states that they cannot give her her medications unless they were prescribed by either their physician or hours. CBC, CMP, magnesium and EtOH are all normal. Urinalysis is unremarkable. Head CT is negative. I will give patient a dose of her seizure medications and discharge her back to the group home with prescriptions for same. Staff members accompanying her from the group home is sure that they will be able to get the prescriptions filled in the morning and will make sure she takes her seizure medications - Vital Signs Vital signs: Temp Pulse Resp BP Pulse Ox 98.8 F 76 16 118/87 H 97 04/04/18 04:00 04/04/18 04:00 04/04/18 04:01 04/04/18 04:00 04/04/18 04:01 - Laboratory Result Diagrams: 04/04/18 03:26 04/04/18 03:26 Laboratory results interpreted by me: 04/04/18 03:26 Hgb 11.9 L Hct 34.4 L Discharge - Discharge Clinical Impression: Seizure Fall Qualifiers: Encounter type: initial encounter Qualified Code(s): W19.XXXA - Unspecified fall, initial encounter Condition: Stable Disposition: HOME, SELF-CARE Additional Instructions: Seizure, Known Epileptic You have had a seizure. Seizures may "break through" in an epileptic due to stress of infection or injury, a change in blood chemistry, or drug and alcohol use. Another common cause is failure to take medication as prescribed. Your doctor has evaluated your situation for the likely cause of this seizure. It is important that you follow his advice concerning any medication changes and follow-up care. Further testing of anti-seizure medication levels in your blood may be necessary. If you have a shag truck driver's license, it's important that you DO NOT DRIVE until given permission by your physician. This seizure must be reported to the shag truck driver 's license bureau. Call the doctor or return if seizures recur, or if new or unusual symptoms arise -- such as severe headache, confusion, excessive sleepiness, local weakness or numbness, neck stiffness, or fever. Patient's workup today was unremarkable. Head CT was negative for any acute findings. Please allow this patient to take her antiseizure medications as I have prescribed. Prescriptions: Brivaracetam [Briviact] 100 mg PO Q12 #60 tablet Lamotrigine 200 mg PO BID #60 tablet Referrals: LIONEL GARCIA MD [Primary Care Provider] - Follow up as needed
[2018-04-04 03:42] LABS: ABSOLUTE BASOPHILS # (AUTO) 0.1 10^3/uL (0.0-0.2); ABSOLUTE EOSINOPHILS # (AUTO) 0.4 10^3/uL (0.0-0.6); ABSOLUTE LYMPHOCYTES (AUTO) 3.3 10^3/uL (0.5-4.7); ABSOLUTE MONOCYTES (AUTO) 0.7 10^3/uL (0.1-1.4); ABSOLUTE NEUT (AUTO) 4.2 10^3/uL (1.7-8.2); BASOPHILS % (AUTO) 0.9 % (0-2); EOSINOPHILS % (AUTO) 4.4 % (0-6); HEMATOCRIT 34.4 % (36.0-47.0); HEMOGLOBIN 11.9 g/dL (12.0-15.5); MEAN CORPUSCULAR HEMOGLOBIN 31.8 pg (27.0-33.4); MEAN CORPUSCULAR HGB CONC 34.6 g/dL (32.0-36.0); MEAN CORPUSCULAR VOLUME 92 fl (80-97); PLATELET COUNT 332 10^3/uL (150-450); RED BLOOD COUNT 3.74 10^6/uL (3.72-5.28); RED CELL DISTRIBUTION WIDTH 13.5 % (11.5-14.0); SEGMENTED NEUTROPHILS % (AUTO) 48.7 % (42-78); TOTAL CELLS COUNTED % (AUTO) 100 %; WHITE BLOOD COUNT 8.6 10^3/uL (4.0-10.5)
--- NOTE | 2018-04-04 03:54 | RADIOLOGY REPORT (SQ) ---
EXAM DESCRIPTION: CT HEAD WITHOUT IV CONTRAST COMPLETED DATE/TME: 04/04/2018 03:25 CLINICAL HISTORY: 38 years, Female, seizure, fell hit head COMPARISON: 03/29/2018 TECHNIQUE: Axial CT images of the brain were obtained without contrast. [facility] [id number] Images stored on PACS. All CT scanners at this facility use dose modulation, iterative reconstruction, and/or weight based dosing when appropriate to reduce radiation dose to as low as reasonably achievable (ALARA). [facility]: Dose Right [facility]: CareDose [facility]: Dose Right [facility]: Teradose 4D [facility]: [employer] LIMITATIONS: None. FINDINGS: Subcutaneous: Unremarkable. No acute intracranial hemorrhage. No midline shift. No mass effect. Ventricles: No hydrocephalus. Mi-white differentiation preserved. Paranasal sinuses/mastoid air cells: Visualized portions are aerated. Bones/orbits: Visualized portions are unremarkable. IMPRESSION: No acute intracranial hemorrhage TECHNICAL DOCUMENTATION: Quality ID # 436: Final reports with documentation of one or more dose reduction techniques (e.g., Automated exposure control, adjustment of the mA and/or kV according to patient size, use of iterative reconstruction technique) 2010 [employer]- All Rights Reserved
[2018-04-04 03:56] LABS: ALANINE AMINOTRANSFERASE 20 U/L (9-52); ALBUMIN 4.4 g/dL (3.5-5.0); ALKALINE PHOSPHATASE 57 U/L (38-126); ANION GAP 9 (5-19); ASPARTATE AMINO TRANSFERASE 24 U/L (14-36); BILIRUBIN,DIRECT 0.2 mg/dL (0.0-0.4); BILIRUBIN,TOTAL 0.6 mg/dL (0.2-1.3); BLOOD UREA NITROGEN 10 mg/dL (7-20); CALCIUM 9.5 mg/dL (8.4-10.2); CARBON DIOXIDE 27 mmol/L (22-30); CHLORIDE 107 mmol/L (98-107); GLUCOSE 93 mg/dL (75-110); POTASSIUM 3.8 mmol/L (3.6-5.0); SODIUM 142.6 mmol/L (137-145); TOTAL PROTEIN 7.5 g/dL (6.3-8.2)
[2018-04-04 04:02] LABS: ALCOHOL < 10 mg/dL (NONE DETECTED)
[2018-04-04] MEDS ORDERED: LAMOTRIGINE 100 MG TABLET PO ONE ×2 (04:24→04:30)
[2018-04-04 06:13] VITALS: BP 118/87
--- NOTE | 2018-04-04 09:35 | EKG REPORT ---
SEVERITY:- ABNORMAL ECG - SINUS RHYTHM LAD, CONSIDER LEFT ANTERIOR FASCICULAR BLOCK : Confirmed by: Chula Mar MD 04-Apr-2018 09:34:48
== END 2018-04-04 04:10 | disposition home or self-care (01) ==
LOC: ER 03:04
DX: G40.909 Epilepsy, unspecified, not intractable, without status epilepticus (principal); W19.XXXA Unspecified fall, initial encounter; E78.00 Pure hypercholesterolemia, unspecified; I10 Essential (primary) hypertension; Z98.51 Tubal ligation status
CPT/HCPCS: 93005; 99285; 36415; 80307; 83735; 85025; 80053; 70450; 93010; J3490

== ENCOUNTER 2018-05-01 00:22 | Emergency (ER) | payer MEDICAID ==
--- NOTE | 2018-05-01 00:48 | ER Document Report ---
ED General - General Chief Complaint: Seizure Stated Complaint: POSSIBLE SEIZURE Time Seen by Provider: 05/01/18 00:26 Notes: Patient is a 38-year-old female who presents to the emergency department after a seizure. She was brought in by ambulance, paramedics state she was postictal with her heart rate in the 130s. According to the paramedics, her family states she is noncompliant. History is very limited due to patient still not able to answer questions. TRAVEL OUTSIDE OF THE [place] IN LAST 30 DAYS: No - Related Data Allergies/Adverse Reactions: No Known Allergies Allergy (Verified 03/29/18 13:59) Past Medical History - General Information source: Patient - Social History Smoking Status: Current Every Day Smoker Frequency of alcohol use: None Drug Abuse: None Family History: Reviewed & Not Pertinent, Other - Past Medical History Cardiac Medical History: Reports: Hx Hypercholesterolemia, Hx Hypertension - not current Pulmonary Medical History: Reports: Hx Pneumonia Neurological Medical History: Reports: Hx Migraine, Hx Seizures Renal/ Medical History: Denies: Hx Peritoneal Dialysis Psychiatric Medical History: Reports: Hx Bipolar Disorder, Hx Depression, Hx Schizophrenia Past Surgical History: Reports: Hx Appendectomy, Hx Breast Surgery - bilateral lumpectomy, Hx Section - x3, Hx Tubal Ligation - Immunizations Immunizations up to date: Yes Hx Diphtheria, Pertussis, Tetanus Vaccination: Yes - 2009 Hx Pneumococcal Vaccination: 06/23/10 Review of Systems - Review of Systems Notes: REVIEW OF SYSTEMS: CONSTITUTIONAL : Denies recent illness. Denies recent unintentional weight loss. Denies fever, chills, or sweats. EENT: Denies eye, ear, throat, or mouth pain, discharge, or symptoms. Denies nasal or sinus congestion. CARDIOVASCULAR: Denies chest pain. RESPIRATORY: Denies shortness of breath, cough, congestion, difficulty breathing , or wheezing. GASTROINTESTINAL: Denies nausea, vomiting, and diarrhea. Denies abdominal pain. Denies constipation. GENITOURINARY: Denies difficulty urinating, burning, blood in urine, urgency or frequency. MUSCULOSKELETAL: Denies neck and back pain. Denies joint pain or swelling. SKIN: Denies rash, itchiness, or lesions HEMATOLOGIC : Denies easy bruising or bleeding. LYMPHATIC: Denies swollen, painful, enlarged glands. NEUROLOGICAL: See HPI and course. PSYCHIATRIC: Denies stress, anxiety, alteration in sleep patterns, or depression. All other systems reviewed and negative. Physical Exam - Notes Notes: PHYSICAL EXAMINATION: GENERAL: Appears well, healthy, well-nourished, no acute distress. HEAD: Normocephalic, atraumatic. EYES: PERRL, conjunctiva normal, all extraocular movements intact, sclera nonicteric ENT: Moist mucous membranes. NECK: Supple, no noticeable swelling, redness, rash. Normal range of motion. LUNGS: Equal breath sounds bilaterally and clear to auscultation. No wheezes rales or rhonchi. CARDIOVASCULAR: S1-S2, regular rate, regular rhythm. Radial pulses 2+, normal. ABDOMEN: Normoactive bowel sounds. Soft, nontender, no guarding, no rebound tenderness, and no masses palpated. EXTREMITIES: Normal strength and range of motion, no pitting or edema. No cyanosis. NEUROLOGICAL: Moves all extremities upon command. Strength 5/5 in all extremities. PSYCH: Normal mood, normal affect. SKIN: Warm, dry. No rash, lesions, ulcerations noted. Normal skin turgor. Course - Re-evaluation Re-evalutation: 05/01/18 01:00 Patient is not currently at baseline at this time. She is unable to tell me her birthdate, and drifts off to sleep when asking her questions. Due to her mental status, labs will be obtained and she will be loaded with 1 gram of Keppra. 05/01/18 01:45 Patient is now at baseline. She states that she has not been 100% compliant with her seizure medication. Her neurologist is Dr. Kessler. She said she was seeing Dr. Greer, but was put on the wrong medication. Dr. Kessler has ordered a new anti-seizure medication for her, but has yet to fill her prescription. When she was reinterviewed, she states that she is having troubles with her , who left her alone in a hotel room with his children. She thinks that her seizure was from her stressful situation with her . Her laboratory studies have. They are unremarkable at this time. 05/01/18 01:54 Patient's nurse reported to me that patient was having a headache. I asked the patient this was 1 of her normal headaches, and she said yes. Tylenol will be ordered for her headache. Patient states that she is wanting to go home. She does not have a ride. When she attempted to stand up, she was unsteady and needed to be sat back down in the stretcher. 05/01/18 03:20 Patient was reassessed, and she was able to stand and walk to wheelchair with steady gait. Her cousin and friend are at bedside to take her home. Verbal discharge instructions were given to the patient and her cousin. They both verbalized understanding. - Laboratory Result Diagrams: 05/01/18 00:35 05/01/18 00:35 Laboratory results interpreted by me: 05/01/18 00:35 RBC 3.61 L Hgb 11.8 L Hct 32.9 L - EKG Interpretation by Me Additional EKG results interpreted by me: 05/01/18 0035 Sinus rhythm; rate 96; CA 188; QRS 106; QT 404; QTC 511: No ST elevations or depressions. Discharge - Discharge Clinical Impression: Seizure Condition: Stable Disposition: HOME, SELF-CARE Additional Instructions: You have been seen in the emergency department after having a seizure. Your workup looks well at this time. Please follow-up with Dr. Kessler in regards to this hospital visit. Please get your antiseizure medication filled and take it as prescribed. You have been given Keppra in the emergency department, an antiseizure medication. If you have a seizure again, or have any symptoms that are worrisome to you, please return to the emergency department. Referrals: RIGO KESSLER MD [NO LOCAL MD] - 05/01/18
[2018-05-01] MEDS ORDERED: LEVETIRACETAM 1000 MG/NACL-ISO 1,000 MG/100 ML RTUPB IV ONE (00:51)
[2018-05-01 01:02] LABS: ABSOLUTE EOSINOPHILS # (AUTO) 0.2 10^3/uL (0.0-0.6); ABSOLUTE LYMPHOCYTES (AUTO) 2.5 10^3/uL (0.5-4.7); ABSOLUTE MONOCYTES (AUTO) 0.5 10^3/uL (0.1-1.4); BASOPHILS % (AUTO) 0.6 % (0-2); EOSINOPHILS % (AUTO) 3.8 % (0-6); HEMATOCRIT 32.9 % (36.0-47.0); HEMOGLOBIN 11.8 g/dL (12.0-15.5); LYMPHOCYTES % (AUTO) 39.7 % (13-45); MEAN CORPUSCULAR HEMOGLOBIN 32.7 pg (27.0-33.4); MEAN CORPUSCULAR HGB CONC 35.8 g/dL (32.0-36.0); MEAN CORPUSCULAR VOLUME 91 fl (80-97); MONOCYTES % (AUTO) 8.6 % (3-13); PLATELET COUNT 294 10^3/uL (150-450); RED BLOOD COUNT 3.61 10^6/uL (3.72-5.28); RED CELL DISTRIBUTION WIDTH 13.6 % (11.5-14.0); SEGMENTED NEUTROPHILS % (AUTO) 47.3 % (42-78); TOTAL CELLS COUNTED % (AUTO) 100 %; WHITE BLOOD COUNT 6.3 10^3/uL (4.0-10.5)
[2018-05-01 01:11] LABS: ALANINE AMINOTRANSFERASE 21 U/L (9-52); ALBUMIN 4.5 g/dL (3.5-5.0); ALKALINE PHOSPHATASE 56 U/L (38-126); ANION GAP 14 (5-19); ASPARTATE AMINO TRANSFERASE 25 U/L (14-36); BILIRUBIN,DIRECT 0.1 mg/dL (0.0-0.4); BILIRUBIN,TOTAL 0.3 mg/dL (0.2-1.3); BLOOD UREA NITROGEN 8 mg/dL (7-20); CALCIUM 9.5 mg/dL (8.4-10.2); CARBON DIOXIDE 25 mmol/L (22-30); CHLORIDE 103 mmol/L (98-107); GLUCOSE 93 mg/dL (75-110); POTASSIUM 3.8 mmol/L (3.6-5.0); SODIUM 141.5 mmol/L (137-145); TOTAL PROTEIN 7.4 g/dL (6.3-8.2)
[2018-05-01 01:12] LABS: ALCOHOL < 10 mg/dL (NONE DETECTED)
[2018-05-01] MEDS ORDERED: ACETAMINOPHEN 325 MG TABLET PO ONE (01:54)
[2018-05-01 03:14] VITALS: BP 130/94
--- NOTE | 2018-05-01 07:23 | EKG REPORT ---
SEVERITY:- ABNORMAL ECG - SINUS RHYTHM LOW VOLTAGE IN FRONTAL LEADS PROLONGED QT INTERVAL : Confirmed by: Aman Harrison MD 01-May-2018 07:22:21
== END 2018-05-01 03:23 | disposition home or self-care (01) ==
LOC: ER 00:22
DX: R56.9 Unspecified convulsions (principal); T50.906A Underdosing of unspecified drugs, medicaments and biological substances, initial encounter; Z91.128 Patient's intentional underdosing of medication regimen for other reason; Z91.14 Patient's other noncompliance with medication regimen; R51 Headache; I10 Essential (primary) hypertension; F17.200 Nicotine dependence, unspecified, uncomplicated; Z63.0 Problems in relationship with spouse or partner
CPT/HCPCS: 93005; 99284; 96365; 36415; 80307; 83735; 84703; 85025; 80053; 93010; J3490; J1953

== ENCOUNTER 2018-05-12 19:26 | Emergency (ER) | payer MEDICAID ==
--- NOTE | 2018-05-12 20:10 | RADIOLOGY REPORT (SQ) ---
EXAM DESCRIPTION: FOOT LEFT COMPLETE COMPLETED DATE/TIME: 05/12/2018 7:58 pm REASON FOR STUDY: pain COMPARISON: None. NUMBER OF VIEWS: Three views. TECHNIQUE: AP, lateral and oblique radiographic images acquired of the left foot. LIMITATIONS: None. FINDINGS: MINERALIZATION: Normal. BONES: There is this is the in the head of the 1st proximal phalanx. However, no cortical defect is seen on any the images. JOINTS: No effusions. SOFT TISSUES: No soft tissue swelling. No foreign body. OTHER: No other significant finding. IMPRESSION: Cannot entirely exclude a nondisplaced fracture of the head of the 1st proximal phalanx as discussed above. TECHNICAL DOCUMENTATION: JOB ID: [id number] [employer]- All Rights Reserved Reading location - IP/workstation name: [email or web address]
--- NOTE | 2018-05-12 20:26 | ER Document Report ---
HPI - HPI Patient complains to provider of: Left foot pain Time Seen by Provider: 05/12/18 19:53 Onset: Yesterday Onset/Duration: Gradual Quality of pain: Achy Pain Level: 3 Context: Patient presents complaining of left lateral foot tenderness that started yesterday. Patient denies any injury. Patient has a prominent bony structure that she is concerned about possible fracture although denies any injury. Associated Symptoms: Other - left foot pain. denies: Fever Exacerbated by: Movement, Walking Relieved by: Denies Similar symptoms previously: No Recently seen / treated by doctor: No - ROS ROS below otherwise negative: Yes Systems Reviewed and Negative: Yes All other systems reviewed and negative - CONSTITUTIONAL Constitutional: DENIES: Fever - REPRODUCTIVE Reproductive: DENIES: : - MUSCULOSKELETAL Musculoskeletal: REPORTS: Extremity pain - DERM Skin Color: Normal Past Medical History - General Information source: Patient - Social History Smoking Status: Never Smoker Frequency of alcohol use: Occasional Drug Abuse: None Occupation: None Lives with: Family Family History: Reviewed & Not Pertinent, Other - Past Medical History Cardiac Medical History: Reports: Hx Hypercholesterolemia, Hx Hypertension - not current Pulmonary Medical History: Reports: Hx Pneumonia Neurological Medical History: Reports: Hx Migraine, Hx Seizures Renal/ Medical History: Denies: Hx Peritoneal Dialysis Psychiatric Medical History: Reports: Hx Bipolar Disorder, Hx Depression, Hx Schizophrenia Past Surgical History: Reports: Hx Appendectomy, Hx Breast Surgery - bilateral lumpectomy, Hx Section - x3, Hx Tubal Ligation - Immunizations Immunizations up to date: Yes Hx Diphtheria, Pertussis, Tetanus Vaccination: Yes - 2009 Hx Pneumococcal Vaccination: 06/23/10 Vertical Provider Document - CONSTITUTIONAL Agree With Documented VS: Yes Exam Limitations: No Limitations General Appearance: WD/WN, No Apparent Distress - INFECTION CONTROL TRAVEL OUTSIDE OF THE [place] IN LAST 30 DAYS: No - HEENT HEENT: Atraumatic, Normocephalic - NECK Neck: Normal Inspection - RESPIRATORY Respiratory: Breath Sounds Normal, No Respiratory Distress - CARDIOVASCULAR Cardiovascular: Regular Rhythm Pulses: Normal: Dorsalis pedis - BACK Back: Normal Inspection - MUSCULOSKELETAL/EXTREMETIES Musculoskeletal/Extremeties: MAEW, FROM, Tender - Patient with tender prominent bony area over left lateral cuboid bone, normal skin color and temperature overlying joint. Bony lesion is more prominent whenever patient inverts foot in the same lesion is noted to the opposite foot when held in the same position. Course - Re-evaluation Re-evalutation: 05/12/18 20:24 Patient presents with lateral foot tenderness over the cuboid bone. Patient without any proximal first phalanx tenderness. No concern for fracture at this time. - Vital Signs Vital signs: Temp Pulse Resp BP Pulse Ox 99.1 F 93 16 115/71 100 05/12/18 19:36 05/12/18 19:36 05/12/18 19:36 05/12/18 19:36 05/12/18 19:36 - Diagnostic Test Radiology reviewed: Image reviewed, Reports reviewed Discharge - Discharge Clinical Impression: Left foot pain Condition: Stable Disposition: HOME, SELF-CARE Additional Instructions: Return immediately for any new or worsening symptoms Followup with your primary care provider, call tomorrow to make a followup appointment Follow-up with orthopedics or podiatry for any persistent pain or problems You may use foam padding, such as that used to pad over corns, for comfort when wearing her shoes Prescriptions: Naproxen [Naprosyn 250 Nmg Tablet] 1 tab PO BID #14 tablet Referrals: LIONEL GARCIA MD [Primary Care Provider] - Follow up as needed [facility] [Provider Group] - Follow up as needed CORINA GREGORIO DPM [ACTIVE STAFF] - Follow up as needed BARB WEAVER DPM [ACTIVE STAFF] - Follow up as needed
[2018-05-12 21:10] VITALS: BP 113/73
== END 2018-05-12 21:50 | disposition home or self-care (01) ==
LOC: ER 19:26
DX: M79.672 Pain in left foot (principal); M89.9 Disorder of bone, unspecified; I10 Essential (primary) hypertension
CPT/HCPCS: 99283

== ENCOUNTER 2018-05-16 15:35 | Emergency (ER) | payer MEDICAID ==
[2018-05-16] MEDS ORDERED: NORMAL SALINE 1000 ML 1,000 ML IV ONE (17:35)
[2018-05-16] MEDS ORDERED: LORAZEPAM INJ 2 MG/1 ML VIAL IV ONE (17:35)
--- NOTE | 2018-05-16 17:41 | ER Document Report ---
ED Medical Screen (RME) - General Chief Complaint: Anxiety Stated Complaint: PANIC ATTACK Time Seen by Provider: 05/16/18 17:34 TRAVEL OUTSIDE OF THE [place] IN LAST 30 DAYS: No - HPI Notes: 05/16/18 17:36 Patient is a 38-year-old female with a history of epilepsy and anxiety who presents to the ED complaining of having a seizure around 1400 today as well as having a panic attack thereafter. Patient states that her seizures are tonic- clonic and was witnessed by multiple people. She has approx 1 seizure per week and is followed by Neurology. Patient states that she returned to baseline thereafter she normally does, and has a headache associated. Patient states that she usually has a headache with her seizures. She is eating and drinking without any difficulty otherwise. Denies any fever, head injury, neck pain, changes in vision/speech/hearing, URI, sore throat, chest pain, palpitations, syncope, cough, shortness of breath, wheeze, dyspnea, abdominal pain, nausea/ vomiting/diarrhea, urinary retention, dysuria, hematuria, loss of control of bowel or bladder, saddle anesthesia, muscle paralysis/weakness, or rash. I have treated and performed a rapid initial assessment of this patient. A comprehensive ED assessment and evaluation of the patient, analysis of test results and completion of medical decision making process will be conducted by additional ED providers. PHYSICAL EXAMINATION: GENERAL: Well-appearing, well-nourished and in no acute distress. A&Ox4. Answers questions appropriately. Eyes: PERRLA. EOMI. Throat: uvula midline. tongue midline. no erythema or exudate. No airway compromise. no bite ramon noted. LUNGS: Breath sounds clear to auscultation bilaterally and equal. No wheezes rales or rhonchi. HEART: Regular rate and rhythm without murmurs, rubs, gallops. Extremities: No cyanosis, clubbing, or edema b/l. NEUROLOGICAL: Normal speech, normal gait. GCS 15. Cranial nerves grossly intact. PSYCH: Normal mood, normal affect. - Related Data Allergies/Adverse Reactions: No Known Allergies Allergy (Verified 05/16/18 17:20) Past Medical History - Social History Chew tobacco use (# tins/day): No Frequency of alcohol use: None Drug Abuse: None Family history: None - Past Medical History Cardiac Medical History: Reports: Hx Hypercholesterolemia, Hx Hypertension - not current Pulmonary Medical History: Reports: Hx Pneumonia Neurological Medical History: Reports: Hx Migraine, Hx Seizures Renal/ Medical History: Denies: Hx Peritoneal Dialysis Psychiatric Medical History: Reports: Hx Bipolar Disorder, Hx Depression, Hx Schizophrenia Past Surgical History: Reports: Hx Appendectomy, Hx Breast Surgery - bilateral lumpectomy, Hx Section - x3, Hx Tubal Ligation - Immunizations Immunizations up to date: Yes Hx Diphtheria, Pertussis, Tetanus Vaccination: Yes - 2009 Physical Exam - Vital signs Vitals: Temp Pulse Resp BP Pulse Ox 98.4 F 106 H 20 107/54 L 96 05/16/18 15:40 05/16/18 15:40 05/16/18 15:40 05/16/18 15:40 05/16/18 15:40 Course - Vital Signs Vital signs: Temp Pulse Resp BP Pulse Ox 98.4 F 106 H 20 107/54 L 96 05/16/18 15:40 05/16/18 15:40 05/16/18 15:40 05/16/18 15:40 05/16/18 15:40 Doctor's Discharge - Discharge Instructions: Anxiety ([facility]) Referrals: LIONEL GARCIA MD [Primary Care Provider] - Follow up as needed
[2018-05-16 18:18] LABS: ABSOLUTE EOSINOPHILS # (AUTO) 0.1 10^3/uL (0.0-0.6); ABSOLUTE LYMPHOCYTES (AUTO) 2.3 10^3/uL (0.5-4.7); ABSOLUTE MONOCYTES (AUTO) 0.5 10^3/uL (0.1-1.4); ABSOLUTE NEUT (AUTO) 2.5 10^3/uL (1.7-8.2); BASOPHILS % (AUTO) 0.8 % (0-2); EOSINOPHILS % (AUTO) 2.5 % (0-6); HEMATOCRIT 33.4 % (36.0-47.0); HEMOGLOBIN 11.4 g/dL (12.0-15.5); LYMPHOCYTES % (AUTO) 42.5 % (13-45); MEAN CORPUSCULAR HGB CONC 34.3 g/dL (32.0-36.0); MEAN CORPUSCULAR VOLUME 93 fl (80-97); MONOCYTES % (AUTO) 8.5 % (3-13); PLATELET COUNT 277 10^3/uL (150-450); RED BLOOD COUNT 3.58 10^6/uL (3.72-5.28); RED CELL DISTRIBUTION WIDTH 14.5 % (11.5-14.0); SEGMENTED NEUTROPHILS % (AUTO) 45.7 % (42-78); TOTAL CELLS COUNTED % (AUTO) 100 %; WHITE BLOOD COUNT 5.4 10^3/uL (4.0-10.5)
[2018-05-16 18:34] LABS: ALANINE AMINOTRANSFERASE 17 U/L (9-52); ALBUMIN 4.2 g/dL (3.5-5.0); ALKALINE PHOSPHATASE 53 U/L (38-126); ANION GAP 11 (5-19); ASPARTATE AMINO TRANSFERASE 19 U/L (14-36); BILIRUBIN,DIRECT 0.2 mg/dL (0.0-0.4); BILIRUBIN,TOTAL 0.4 mg/dL (0.2-1.3); BLOOD UREA NITROGEN 10 mg/dL (7-20); CALCIUM 9.1 mg/dL (8.4-10.2); CARBON DIOXIDE 24 mmol/L (22-30); CHLORIDE 108 mmol/L (98-107); GLUCOSE 87 mg/dL (75-110); POTASSIUM 3.8 mmol/L (3.6-5.0); SODIUM 143.2 mmol/L (137-145)
[2018-05-16] MEDS ORDERED: DIAZEPAM INJ 10 MG/2 ML DISP.SYRIN IV ONE (19:03)
[2018-05-16] MEDS ORDERED: METOCLOPRAMIDE HCL INJ/PF 10 MG/2 ML SDV IV ONE (19:04)
--- NOTE | 2018-05-16 19:31 | ER Document Report ---
ED General - General Chief Complaint: Anxiety Stated Complaint: PANIC ATTACK Time Seen by Provider: 05/16/18 17:34 Notes: Patient is a 38-year-old female with a past medical history of seizures, anxiety , depression, panic attacks who presents after having a panic attack following 1 of her seizures. The patient states that she had a 30 second seizure, witnessed by family members. She states this is a typical seizure for her, no concerns regarding seizure today. She came to the emergency department because she developed a panic attack there after which she was unable to get controlled. She states she has had very similar panic attacks in the past after having seizures. She also notes a global, dull, throbbing headache that started after the seizure. Has gotten worse since onset. Worsened by lights and sounds. States this feels quite typical for her normal headache after seizures. She denies any focal weakness, numbness, fever or confusion. She has not contacted her primary care physician regarding today's concerns. TRAVEL OUTSIDE OF THE [place] IN LAST 30 DAYS: No - Related Data Allergies/Adverse Reactions: No Known Allergies Allergy (Verified 05/16/18 17:20) Past Medical History - General Information source: Patient - Social History Smoking Status: Current Every Day Smoker Chew tobacco use (# tins/day): No Frequency of alcohol use: None Drug Abuse: None Lives with: Spouse/Significant other Family History: Reviewed & Not Pertinent, Other Patient has suicidal ideation: No Patient has homicidal ideation: No - Past Medical History Cardiac Medical History: Reports: Hx Hypercholesterolemia, Hx Hypertension - not current Pulmonary Medical History: Reports: Hx Pneumonia Neurological Medical History: Reports: Hx Migraine, Hx Seizures Renal/ Medical History: Denies: Hx Peritoneal Dialysis Psychiatric Medical History: Reports: Hx Bipolar Disorder, Hx Depression, Hx Schizophrenia Past Surgical History: Reports: Hx Appendectomy, Hx Breast Surgery - bilateral lumpectomy, Hx Section - x3, Hx Tubal Ligation - Immunizations Immunizations up to date: Yes Hx Diphtheria, Pertussis, Tetanus Vaccination: Yes - 2009 Hx Pneumococcal Vaccination: 06/23/10 Review of Systems - Review of Systems Notes: Constitutional: Negative for fever. HENT: Negative for sore throat. Eyes: Negative for visual changes. Cardiovascular: Negative for chest pain. Respiratory: Negative for shortness of breath. Gastrointestinal: Negative for abdominal pain, vomiting or diarrhea. Genitourinary: Negative for dysuria. Musculoskeletal: Negative for back pain. Skin: Negative for rash. Neurological: Positive for headache, positive for seizure prior to arrival 10 point ROS negative except as marked above and in HPI. Physical Exam - Vital signs Vitals: Temp Pulse Resp BP Pulse Ox 98.4 F 106 H 20 107/54 L 96 05/16/18 15:40 05/16/18 15:40 05/16/18 15:40 05/16/18 15:40 05/16/18 15:40 Interpretation: Tachycardic - Resolved at the time of my assessment Notes: PHYSICAL EXAMINATION: GENERAL: Well-appearing, well-nourished and in no acute distress. HEAD: Atraumatic, normocephalic. EYES: Pupils equal round and reactive to light, extraocular movements intact, sclera anicteric, conjunctiva are normal. ENT: nares patent, oropharynx clear without exudates. Moist mucous membranes. NECK: Normal range of motion, supple without lymphadenopathy LUNGS: Breath sounds clear to auscultation bilaterally and equal. No wheezes rales or rhonchi. HEART: Regular rate and rhythm without murmurs ABDOMEN: Soft, nontender, normoactive bowel sounds. No guarding, no rebound. No masses appreciated. EXTREMITIES: Normal range of motion, no pitting or edema. No cyanosis. NEUROLOGICAL: Face symmetric. Tongue protrudes midline. Extraocular motions intact. Pupils are 2 mm and equally reactive. Normal speech, normal gait. 5 out of 5 strength in both the distal and proximal upper and lower extremities bilaterally. Sensation is grossly intact throughout. Finger to nose testing normal. Pronator drift normal. PSYCH: Anxious, somewhat tremulous SKIN: Warm, Dry, normal turgor, no rashes or lesions noted. Course - Re-evaluation Re-evalutation: 05/16/18 19:29 Patient presents with history most consistent with an acute panic attack. This did start after the patient apparently had a seizure of which she has a known history. The patient admits that these are symptoms identical to prior occasions of panic. There was a clear trigger for tonight's episode. Symptoms did resolve after receiving medical therapy here in the emergency department. I do not suspect an acute pulmonary embolus, ACS, pneumothorax, or any other acute left threatening pathology based on history and exam. In regards to the patient's headache: Headache was not maximal in onset, patient has no focal neurologic deficits, no nuchal rigidity, vital signs within normal limits, no papilledema, and patient is overall well in appearance. Based on clinical history and examination I do not suspect an acute subarachnoid hemorrhage, dural venous sinus thrombosis, acute meningitis, or intercranial mass. Headache did completely resolve after receiving 10 mg of metoclopramide. Labs were obtained by the triaging provider and are reviewed, noted to be normal. At this time will discharge with return precautions and follow-up recommendations. Verbal discharge instructions given a the bedside and opportunity for questions given. Medication warnings reviewed. Patient is in agreement with this plan and has verbalized understanding of return precautions and the need for primary care follow-up in the next 24-72 hours. - Vital Signs Vital signs: Temp Pulse Resp BP Pulse Ox 98.3 F 85 20 110/63 98 05/16/18 19:44 05/16/18 19:44 05/16/18 19:44 05/16/18 19:44 05/16/18 19:44 - Laboratory Result Diagrams: 05/16/18 18:02 05/16/18 18:02 Laboratory results interpreted by me: 05/16/18 05/16/18 18:02 18:02 RBC 3.58 L Hgb 11.4 L Hct 33.4 L RDW 14.5 H Chloride 108 H Discharge - Discharge Clinical Impression: Panic attack Epilepsy Qualifiers: Epilepsy type: unspecified Intractability: not intractable Status epilepticus: without status epilepticus Qualified Code(s): G40.909 - Epilepsy, unspecified, not intractable, without status epilepticus Headache Qualifiers: Headache type: unspecified Headache chronicity pattern: acute headache Intractability: not intractable Qualified Code(s): R51 - Headache Condition: Good Disposition: HOME, SELF-CARE Instructions: Anxiety ([facility]) Additional Instructions: You were seen today for a panic attack. Please return if you develop recurrance of your symptoms, thoughts of wanting to harm yourself, or any other symptoms that are concerning to you. Follow-up with your primary doctor or mental health provider regarding today's ED visit. Referrals: LIONEL GARCIA MD [Primary Care Provider] - Follow up as needed
[2018-05-16 19:49] VITALS: BP 110/63
== END 2018-05-16 19:44 | disposition home or self-care (01) ==
LOC: ER 15:35
DX: F41.0 Panic disorder [episodic paroxysmal anxiety] (principal); G40.909 Epilepsy, unspecified, not intractable, without status epilepticus; R51 Headache; F17.200 Nicotine dependence, unspecified, uncomplicated
CPT/HCPCS: 99284; 96361; 96374; 96375; 36415; 83735; 85025; 80053; J3360; J2765; J2060; J7030

== ENCOUNTER 2018-07-20 20:16 | Emergency (ER) | payer MEDICAID, OTHER ==
--- NOTE | 2018-07-20 22:03 | ER Document Report ---
ED Headache - General Chief Complaint: Headache Stated Complaint: NECK PAIN,NUMBNES LEFT HAND Time Seen by Provider: 07/20/18 22:03 Primary Care Provider: LIONEL GARCIA MD [Primary Care Provider] - Follow up as needed Mode of Arrival: Ambulatory Information source: Patient Notes: HISTORY OF PRESENT ILLNESS: Patient is a 38-year-old female with a past medical history of schizophrenia who presents with headache. The patient states she fell 2 weeks ago from her couch, landed on the back of her head, reports being "dazed" for a few seconds but then quickly returned to normal. She denies vision changes, no confusion or disorientation, no ataxia, no recent fevers or chills. Patient does report mild nausea but no vomiting. Patient does have a history of migraine headaches in the remote past but reports this is different in both location, with this headache being posteriorly located versus anteriorly located in the past, as well as intensity as this is an aching sensation versus a throbbing sensation. She reports taking oral ibuprofen without relief. Onset: 3-4 days ago Provocation: None Quality: Aching Radiation: None Severity: Moderate Timing: Constant REVIEW OF SYSTEMS: CONSTITUTIONAL : Denies fever or chills, no sweats. Denies recent illness. EENT: Denies eye, ear, throat, or mouth pain or symptoms. Denies nasal or sinus congestion. CARDIOVASCULAR: Denies chest pain. RESPIRATORY: Denies cough, cold, or chest congestion. Denies shortness of breath, difficulty breathing, or wheezing. GASTROINTESTINAL: Denies abdominal pain. Denies nausea, vomiting, or diarrhea. Denies constipation. Last BM: GENITOURINARY: Denies difficulty urinating, painful urination, burning, frequency, or blood in urine. FEMALE GENITOURINARY: Denies vaginal bleeding, abnormal or irregular periods. MUSCULOSKELETAL: Denies neck or back pain or joint pain or swelling. SKIN: Denies rash or skin lesions. HEMATOLOGIC : Denies easy bruising or bleeding. LYMPHATIC: Denies swollen, enlarged glands. NEUROLOGICAL: Denies altered mental status or loss of consciousness. Positive headache. Denies weakness or paralysis or loss of use of either side. Denies problems with gait or speech. Denies sensory or motor loss. PSYCHIATRIC: Denies anxiety or stress or depression. All other systems reviewed and negative. PHYSICAL EXAMINATION: GENERAL: Well-appearing, well-nourished and in no acute distress. HEAD: Atraumatic, normocephalic. No scalp deformity, depression, or crepitance. EYES: Pupils are 3 mm and equal/round/reactive to light, extraocular movements intact, sclera anicteric, conjunctiva are normal. ENT: Nares patent bilaterally, oropharynx clear without exudates or palatal petechia. Moist mucous membranes. No tonsil hypertrophy. NECK: Normal range of motion, supple without lymphadenopathy. LUNGS: Breath sounds present, equal, and clear to auscultation bilaterally. No wheezes, rales, or rhonchi. HEART: Regular rate and rhythm without murmurs, rubs, or gallops. 2+ peripheral pulses. Normal capillary refill. ABDOMEN: Soft, nontender, nondistended. Normoactive bowel sounds. No guarding, no rebound. No masses appreciated. EXTREMITIES: Normal range of motion, no pitting or edema. No cyanosis. NEUROLOGICAL: No focal neurological deficits. Moves all extremities spontaneously and on command. PSYCH: Normal mood, normal affect. No suicidal thoughts/ideations. No homocidal thoughts/ideations. No hallucinations. SKIN: Warm, dry, normal turgor, no rashes or lesions noted. ASSESSMENT AND PLAN: This patient is a 38-year-old female who presents with migraine headache versus tension headache versus postconcussive headache given recent head injury. 1. Will obtain CT head without contrast. 2. Will give IV fluids along with Toradol, Benadryl, and Reglan then reassess. TRAVEL OUTSIDE OF THE [place] IN LAST 30 DAYS: No - Related Data Allergies/Adverse Reactions: No Known Allergies Allergy (Verified 05/16/18 17:20) Past Medical History - General Information source: Patient - Social History Smoking Status: Current Every Day Smoker Chew tobacco use (# tins/day): No Frequency of alcohol use: None Drug Abuse: None Lives with: Family Family History: Reviewed & Not Pertinent, Other Patient has suicidal ideation: No Patient has homicidal ideation: No - Past Medical History Cardiac Medical History: Reports: Hx Hypercholesterolemia Comment Only: Hx Hypertension - not current Pulmonary Medical History: Reports: Hx Pneumonia EENT Medical History: Reports: None Neurological Medical History: Reports: Hx Migraine, Hx Seizures Endocrine Medical History: Reports: None Renal/ Medical History: Reports: None. Denies: Hx Peritoneal Dialysis Malignancy Medical History: Reports: None GI Medical History: Reports: None Musculoskeletal Medical History: Reports None Skin Medical History: Reports None Psychiatric Medical History: Reports: Hx Bipolar Disorder, Hx Depression, Hx Schizophrenia Traumatic Medical History: Reports: None Infectious Medical History: Reports: None Past Surgical History: Reports: Hx Appendectomy, Hx Breast Surgery - bilateral lumpectomy, Hx Section - x3, Hx Tubal Ligation - Immunizations Immunizations up to date: Yes Hx Diphtheria, Pertussis, Tetanus Vaccination: Yes - 2009 Hx Pneumococcal Vaccination: 06/23/10 Physical Exam - Vital signs Vitals: Pulse Resp BP Pulse Ox 89 16 140/94 H 100 07/20/18 20:28 07/20/18 20:28 07/20/18 20:28 07/20/18 20:28 Course - Re-evaluation Re-evalutation: 07/21/18 01:[address] is negative. Patient will be discharged home with return precautions and follow-up. Patient reports understanding and agreeing with the plan. - Vital Signs Vital signs: Temp Pulse Resp BP Pulse Ox 89 17 131/89 H 100 07/20/18 21:44 07/21/18 00:01 07/21/18 00:01 07/21/18 00:01 - Diagnostic Test Radiology reviewed: Image reviewed, Reports reviewed Discharge - Discharge Clinical Impression: Migraine headache without aura Qualifiers: Status migrainosus presence: without status migrainosus Intractability: not intractable Qualified Code(s): G43.009 - Migraine without aura, not intractable, without status migrainosus Condition: Good Disposition: HOME, SELF-CARE Instructions: Headache ([facility]) Additional Instructions: You have been evaluated in the Emergency Department for migraine headache. Please follow-up with your primary physician as instructed in 1 week. Return to the Emergency Department if you experience vision changes, disorientation/confusion, trouble walking, or any other concerning symptoms. Prescriptions: Butalbital/Aspirin/Caffeine [[id number] [id number]] 1 each PO Q6H PRN #30 tablet PRN Reason: For Headache Referrals: LIONEL GARCIA MD [Primary Care Provider] - Follow up as needed Print Language: Yakut
[2018-07-20] MEDS ORDERED: NORMAL SALINE 1000 ML 1,000 ML IV ONE (22:26)
[2018-07-20] MEDS ORDERED: METOCLOPRAMIDE HCL INJ/PF 10 MG/2 ML SDV IV ONE (22:26)
[2018-07-20] MEDS ORDERED: DIPHENHYDRAMINE HCL 50 MG/ML VIAL IV ONE (22:26)
[2018-07-20] MEDS ORDERED: KETOROLAC TROMETHAMINE INJ/PF 30 MG/1 ML SDV IV ONE (22:26)
--- NOTE | 2018-07-20 23:59 | RADIOLOGY REPORT (SQ) ---
EXAM DESCRIPTION: CT HEAD WITHOUT IV CONTRAST COMPLETED DATE/TME: 07/20/2018 22:39 CLINICAL HISTORY: 38 years, Female, Headache after fall COMPARISON: None. TECHNIQUE: Axial images of the head were performed without the use of intravenous contrast, with sagittal and coronal reformatted images. Images stored on PACS. All CT scanners at this facility use dose modulation, iterative reconstruction, and/or weight based dosing when appropriate to reduce radiation dose to as low as reasonably achievable (ALARA). [facility]: Dose Right [facility]: CareDose [facility]: Dose Right [facility]: Teradose 4D [facility]: [employer] LIMITATIONS: None. FINDINGS: No skull fracture. No intracranial bleed. No evidence of acute infarct. No evidence of mass or hydrocephalus. The visualized paranasal sinuses are clear. IMPRESSION: No skull fracture. No intracranial bleed. TECHNICAL DOCUMENTATION: Quality ID # [id number]: Final reports with documentation of one or more dose reduction techniques (e.g., Automated exposure control, adjustment of the mA and/or kV according to patient size, use of iterative reconstruction technique) copyright 2011 [employer]- All Rights Reserved
[2018-07-21 01:25] VITALS: BP 106/74
== END 2018-07-21 01:25 | disposition home or self-care (01) ==
LOC: ER 20:16
DX: G43.009 Migraine without aura, not intractable, without status migrainosus (principal); R20.0 Anesthesia of skin; F17.200 Nicotine dependence, unspecified, uncomplicated; E78.00 Pure hypercholesterolemia, unspecified; Z98.51 Tubal ligation status
CPT/HCPCS: 99284; 96361; 96374; 96375; 70450; J1200; J1885; J2765; J7030

== ENCOUNTER 2018-08-01 19:58 | Emergency (ER) | payer MEDICAID, OTHER ==
[2018-08-01 20:11] VITALS: BP 130/76
== END 2018-08-01 22:45 | disposition left against medical advice (07) ==
LOC: ER 19:58
DX: Z53.21 Procedure and treatment not carried out due to patient leaving prior to being seen by health care provider (principal)

== ENCOUNTER 2018-08-22 21:23 | Emergency (ER) | payer SELFPAY ==
[2018-08-22 21:31] VITALS: BP 123/72
[2018-08-22] MEDS ORDERED: TRAMADOL HCL 50 MG TABLET PO ONE (21:57)
--- NOTE | 2018-08-22 22:00 | ER Document Report ---
ED General - General Chief Complaint: Toe Injury Stated Complaint: TOE PAIN Time Seen by Provider: 08/22/18 21:39 Primary Care Provider: LIONEL GARCIA MD [Primary Care Provider] - Follow up as needed Mode of Arrival: Ambulatory Information source: Patient TRAVEL OUTSIDE OF THE [place] IN LAST 30 DAYS: No - HPI Patient complains to provider of: Injury to toes of right foot Onset: This morning Onset/Duration: Sudden Quality of pain: Sharp Context: Struck her toes on a door Associated symptoms: None - Related Data Allergies/Adverse Reactions: No Known Allergies Allergy (Verified 08/22/18 21:26) Past Medical History - General Information source: Patient - Social History Smoking Status: Never Smoker Family History: Reviewed & Not Pertinent, Other - Past Medical History Cardiac Medical History: Reports: Hx Hypercholesterolemia Comment Only: Hx Hypertension - not current Pulmonary Medical History: Reports: Hx Pneumonia Neurological Medical History: Reports: Hx Migraine, Hx Seizures Renal/ Medical History: Denies: Hx Peritoneal Dialysis Psychiatric Medical History: Reports: Hx Bipolar Disorder, Hx Depression, Hx Schizophrenia Past Surgical History: Reports: Hx Appendectomy, Hx Breast Surgery - bilateral lumpectomy, Hx Section - x3, Hx Tubal Ligation - Immunizations Immunizations up to date: Yes Hx Diphtheria, Pertussis, Tetanus Vaccination: Yes - 2009 Hx Pneumococcal Vaccination: 06/23/10 Review of Systems - Review of Systems Notes: Constitutional: No fevers. No chills. EENT: No eye redness. No eye pain. No ear pain. No sore throat. Cardiovascular: No chest pain. No palpitations. Respiratory: No cough. No shortness of breath. No respiratory distress. Gastrointestinal: No abdominal pain. No nausea, vomiting, or diarrhea. Genitourinary: Atraumatic. No lesions. No pain. No discharge. Musculoskeletal: Positive toe pain right foot Skin: No rash or lesions. Lymphatic: No swollen lymph nodes. Neurologic: No headache. No syncope. Psychiatric: No suicidal or homicidal ideation. Physical Exam - Vital signs Vitals: Temp Pulse Resp BP Pulse Ox 99.1 F 90 20 123/72 99 08/22/18 21:30 08/22/18 21:30 08/22/18 21:30 08/22/18 21:30 08/22/18 21:30 - Notes Notes: General: Well-developed, well-nourished. In no acute distress. Non-toxic appearing. Cardiac: Well-perfused. Regular rate and rhythm. No murmurs, rubs, or gallops. Pulmonary: No respiratory distress. No cyanosis. Bilateral lung fiels are clear to auscultation. Abdominal: Non-distended. Non-rigid. Bowels sounds are present in all four quadrants. No guarding or rebound. HEENT: Head is atraumatic. Conjunctivae not reddened. No tearing. PERRL. EOMI. Orbits atraumatic. No periorbital swelling or erythema. Oropharynx is without erythema, swelling, or exudates. Neck: Supple. No adenopathy. No meningismus. Dermatologic: Warm with good turgor. No rash. Atraumatic. Chest: Atraumatic. No chest wall tenderness to palpation. Musculoskeletal: Moves all extremities well. No range of motion deficits. no muscular or joint tenderness. Tenderness to palpation of the right first, second, third, and fourth toes. No obvious deformity. No swelling. Neurovascularly intact Genitourinary: Examination deferred Neurologic: No gross neurologic deficits. Psychiatric: Normal mood. Course - Re-evaluation Re-evalutation: 08/22/18 22:00 Wet reading in the ER no fracture. Waiting final reading of x-ray 08/22/18 22:39 X-rays negative. Possible small occult fracture not seen on x-ray. Will not warp changer. Open toed Orth[employer] shoe. 08/22/18 22:42 - Vital Signs Vital signs: Temp Pulse Resp BP Pulse Ox 99.1 F 90 20 123/72 99 08/22/18 21:30 08/22/18 21:30 08/22/18 21:30 08/22/18 21:30 08/22/18 21:30 - Diagnostic Test Radiology reviewed: Reports reviewed Discharge - Discharge Clinical Impression: Contusion, toes Qualifiers: Encounter type: initial encounter Toe: unspecified toe Damage to nail status: without damage Qualified Code(s): S90.129A - Contusion of unspecified lesser toe(s) without damage to nail, initial encounter Condition: Good Disposition: HOME, SELF-CARE Instructions: Contusion ([facility]) Additional Instructions: ice and elevate the reduce swelling. Prescriptions: Naproxen 500 mg PO BID #14 tablet Referrals: LIONEL GARCIA MD [Primary Care Provider] - Follow up as needed
--- NOTE | 2018-08-22 22:24 | RADIOLOGY REPORT (SQ) ---
3 VIEWS OF THE RIGHT FOOT HISTORY: Joint pain. COMPARISON: None. FINDINGS: No acute fracture is seen. The joint spaces are preserved. The soft tissues are unremarkable. No radiopaque foreign body is identified. IMPRESSION: No acute fracture or dislocation.
== END 2018-08-22 22:50 | disposition home or self-care (01) ==
LOC: ER 21:23
DX: S90.121A Contusion of right lesser toe(s) without damage to nail, initial encounter (principal); W22.8XXA Striking against or struck by other objects, initial encounter; Y93.89 Activity, other specified
CPT/HCPCS: 99283

== ENCOUNTER 2019-07-12 18:14 | Emergency (ER) | payer MEDICAID ==
--- NOTE | 2019-07-12 18:45 | ER Document Report ---
HPI - HPI Time Seen by Provider: 07/12/19 18:38 Notes: Patient is a 39-year-old female no significant past medical history presents complaining of a sore throat that began last night. Patient states that she is still able to eat and drink without difficulty otherwise. She is urinating normally. Denies drug allergies. No other correlating symptoms. She has not had any drooling or hoarseness. Denies any headache, fever, neck pain, URI, chest pain, palpitations, syncope, cough, shortness of breath, wheeze, dyspnea, abdominal pain, nausea/vomiting/diarrhea, urinary retention, dysuria, hematuria, or rash. - ROS Systems Reviewed and Negative: Yes All other systems reviewed and negative - REPRODUCTIVE Reproductive: DENIES: : Past Medical History - Social History Smoking Status: Unknown if Ever Smoked Family History: Reviewed & Not Pertinent, Other - Past Medical History Cardiac Medical History: Reports: Hx Hypercholesterolemia Comment Only: Hx Hypertension - not current Pulmonary Medical History: Reports: Hx Pneumonia Neurological Medical History: Reports: Hx Migraine, Hx Seizures Renal/ Medical History: Denies: Hx Peritoneal Dialysis Psychiatric Medical History: Reports: Hx Bipolar Disorder, Hx Depression, Hx Schizophrenia Past Surgical History: Reports: Hx Appendectomy, Hx Breast Surgery - bilateral lumpectomy, Hx Section - x3, Hx Tubal Ligation - Immunizations Immunizations up to date: Yes Hx Diphtheria, Pertussis, Tetanus Vaccination: Yes - 2009 Hx Pneumococcal Vaccination: 06/23/10 Vertical Provider Document - CONSTITUTIONAL Agree With Documented VS: Yes Notes: PHYSICAL EXAMINATION: GENERAL: Well-appearing, well-nourished and in no acute distress. A&Ox4. Answers questions appropriately. Moves comfortably w/o notable distress HEAD: Atraumatic, normocephalic. EYES: Pupils equal round and reactive to light, extraocular movements intact, sclera anicteric, conjunctiva are normal. ENT: EAC clear b/l. TM's intact b/l without erythema, fluid, or perforation. Nares patent and with clear discharge. oropharynx mild erythema without exudates. No tonsilar hypertrophy with mild erythema no exudate. No palatine shift. Uvula midline. No tongue protrusion. No drooling, hoarseness, or airway compromise. Moist mucous membranes. No sinus tenderness. NECK: Normal range of motion, supple with a few very small moveable ant. cerv chain lymphadenopathy. No rigidity/meningismus. LUNGS: Breath sounds clear to auscultation bilaterally and equal. No wheezes rales or rhonchi. No retractions HEART: Regular rate and rhythm without murmurs, rubs, gallops. ABDOMEN: Soft, nontender, nondistended abdomen. No guarding, no rebound. Normal bowel sounds present. No CVA tenderness bilaterally. NEUROLOGICAL: Normal speech, normal gait. PSYCH: Normal mood, normal affect. SKIN: Warm, Dry, normal turgor, no rashes or lesions noted. - INFECTION CONTROL TRAVEL OUTSIDE OF THE [place] IN LAST 30 DAYS: No Course - Re-evaluation Re-evalutation: 07/12/19 Patient is an afebrile, well-hydrated, 39-year-old female who presents to the emergency department with a sore throat, suspect viral. Vitals are acceptable without significant tachycardia, tachypnea, or hypoxia. PE is otherwise unremarkable. She is nontoxic-appearing and is tolerating p.o. without difficulty. Lungs are clear to auscultation bilaterally. Rapid strep was negative with a throat culture pending. No further labs or imaging warranted at this time. Low suspicion for any meningitis, sepsis, peritonsillar/pharyngeal abscess, respiratory compromise, Arthur's, or other emergent systemic condition at this time. Patient is aware this condition can change from initial presentation and she needs to monitor symptoms closely. Conservative measures otherwise for symptoms. Recheck with your PCM in 2-3 days. Return to the ED with any worsening/concerning symptoms otherwise as reviewed in discharge. Patient is in agreement. - Vital Signs Vital signs: Temp Pulse Resp BP Pulse Ox 99.0 F 102 H 18 125/78 99 07/12/19 18:28 07/12/19 18:28 07/12/19 18:28 07/12/19 18:28 07/12/19 18:28 Discharge - Discharge Clinical Impression: Sore throat Condition: Stable Disposition: HOME, SELF-CARE Instructions: Sore Throat ([facility]) Additional Instructions: Maintain adequate fluid intake Take meds as directed Salt water gargles, throat sprays, mouthwash rinse, peroxide gargles tylenol/ibuprofen as needed over the counter cold medication as needed for symptoms F/u: with your PCM in 2-3 days for a recheck Consider consult with ENT for ongoing/worsening symptoms Return to the ED with any fever, worsening pain, chest pain, neck pain/stiffness, shortness of breath, cough, drooling, trouble swallowing/breathing, abdominal pain, n/v/d, rash, or worsening/concerning symptoms otherwise. Referrals: LIONEL GARCIA MD [Primary Care Provider] - Follow up as needed ADEOLA HANEY DO [ASSOCIATE] - Follow up as needed
[2019-07-12 20:08] VITALS: BP 120/72
== END 2019-07-12 19:24 | disposition home or self-care (01) ==
LOC: ER 18:14
DX: J02.9 Acute pharyngitis, unspecified (principal); E78.00 Pure hypercholesterolemia, unspecified; Z98.51 Tubal ligation status
CPT/HCPCS: 87070; 87077; 87880; 99283

== ENCOUNTER → 2020-06-01 | Outpatient (CLI) | payer MEDICAID ==
--- NOTE | 2020-06-01 13:46 | WOMENS IMAGING REPORT ---
EXAM DESCRIPTION: BILAT SCREENING MAMMO W/CAD IMAGES COMPLETED DATE/TIME: 06/01/2020 1:04 pm REASON FOR STUDY: Z12.31 ENCNTR SCREEN MAMMOGRAM FOR MALIGNANT NEOPLASM OF BREAST Z12.31 ENCNTR SCR EEN MAMMOGRAM FOR MALIGNANT NEOPLASM OF BEATRIZ COMPARISON: None. EXAM PARAMETERS: Standard craniocaudal and mediolateral oblique views of each breast recorded using digital acquisition. Read with the assistance of CAD. .FORMERLY [facility], [facility] - [employer]onatal Icu Coordinator Version 9.2 LIMITATIONS: None. FINDINGS: No suspicious masses, suspicious calcifications or architectural distortion. No areas of c oncern. IMPRESSION: NEGATIVE MAMMOGRAM. BIRADS 1 BREAST DENSITY: b. There are scattered areas of fibroglandular density. BIRAD: ASSESSMENT: 1 NEGATIVE RECOMMENDATION: ROUTINE SCREENING COMMENT: The patient has been notified of the results by letter per MQSA requirements. Additional no tification policies are in place for contacting patient with suspicious or incomplete findings. Quality ID #[id number]: The [employer] recommends an annual screening mammogram for women aged 40 years or over. This facility utilizes a reminder system to ensure that all patients receive reminder letters, and/or direct phone calls for appointments. This includes reminders for routine scr eening mammograms, diagnostic mammograms, or other Breast Imaging Interventions when appropriate. Th is patient will be placed in the appropriate reminder system. TECHNICAL DOCUMENTATION: FINDING NUMBER: (1) ASSESSMENT: (1) JOB ID: [id number] 2010 [employer]- All Rights Reserved Reading location - IP/workstation name: [email or web address]
--- NOTE | 2020-06-01 13:56 | RADIOLOGY REPORT (SQ) ---
EXAM DESCRIPTION: HIP RIGHT AP/LATERAL IMAGES COMPLETED DATE/TIME: 06/01/2020 1:29 pm REASON FOR STUDY: PAIN IN R HIP Z12.31 ENCNTR SCREEN MAMMOGRAM FOR MALIGNANT NEOPLASM OF BEATRIZ COMPARISON: None. NUMBER OF VIEWS: Two views. TECHNIQUE: AP pelvis and additional frog legview of the right hip. LIMITATIONS: None. FINDINGS: MINERALIZATION: Normal. RIGHT HIP: No fracture or dislocation. No worrisome bone lesions. No contour deformity. No joint sp apurva narrowing. LEFT HIP: No fracture or dislocation. No worrisome bone lesions. Limited views. PUBIS AND ISCHIUM: No fracture. PELVIS: No fracture. SACRUM: No fracture or dislocation. No worrisome bone lesions. LOWER LUMBAR SPINE: No fracture or dislocation. No worrisome bone lesions. No significant disc disea se. SOFT TISSUES: No findings. OTHER: No other significant finding. IMPRESSION: NEGATIVE STUDY OF THE RIGHT HIP. NO EXPLANATION FOR PAIN. TECHNICAL DOCUMENTATION: JOB ID: [id number] 2010 [employer]- All Rights Reserved Reading location - IP/workstation name: [email or web address]
== END ==
LOC: WI 12:46
PROVIDERS: ATTEND Internal Medicine
DX: Z12.31 Encounter for screening mammogram for malignant neoplasm of breast (principal)
CPT/HCPCS: 77067